=== PATIENT | female | born 1970 | race Caucasian/White ===

== ENCOUNTER 2022-01-10 07:40 | Outpatient (REF) | payer OTHER, SELFPAY ==
[2022-01-10 08:06] LABS: MANUAL DIFF FLAG NO
[2022-01-10 08:36] LABS: Basophils Absolute Auto 0.1 X10*3/uL (0.0-0.2); Basophils Percent Auto 0.8 % (0-2); Eosinophils Absolute Auto 0.4 X10*3/uL (0.0-0.4); Eosinophils Percent Auto 4.9 % (0-4); Hematocrit 38.8 % (37.0-47.0); Hemoglobin 12.7 g/dl (12.0-16.0); Imm Gran Abs Auto 0.02 X10*3/uL (0.00-0.03); Imm Gran Pct Auto 0.2 % (0.0-0.4); Lymphocytes Absolute Auto 2.7 X10*3/uL (1.2-4.9); Lymphocytes Percent Auto 31.9 % (20-40); Mean Corpuscular HGB Conc 32.7 g/dl (31.0-35.0); Mean Corpuscular Hemoglobin 29.6 pg (27.0-33.0); Mean Corpuscular Volume 90.4 fL (80.0-98.0); Mean Platelet Volume 10.3 fL (9.4-12.3); Monocytes Absolute Auto 0.5 X10*3/uL (0.1-1.2); Monocytes Percent Auto 6.4 % (2-11); Neutrophils Absolute Auto 4.7 x10*3/uL (2.0-8.3); Neutrophils Percent Auto 55.8 % (45-73); Platelet Count 389 X10*3/uL (160-400); Red Blood Count 4.29 X10*6/uL (4.20-5.50); Red Cell Distribution Width 14.7 % (11.0-16.0); White Blood Count 8.5 X10*3/uL (4.8-10.8)
[2022-01-10 08:44] LABS: Estimated Average Glucose 105 mg/dL; Hemoglobin A1c % 5.3 %
[2022-01-10 09:11] LABS: Alanine Aminotransferase 17 U/L (0-31); Albumin Level 4.2 g/dL (3.5-5.0); Alkaline Phosphatase 98 U/L (39-117); Anion Gap 12 (12-20); Aspartate Amino Transferase 18 U/L (5-31); Bilirubin Total 0.6 mg/dL (0.0-1.0); Blood Urea Nitrogen 21 mg/dL (9-16); Calcium 9.7 mg/dL (8.4-10.2); Carbon Dioxide 25 mmol/L (22-29); Chloride 108 mmol/L (96-108); Cholesterol 216 mg/dL; Estimated Glomerular Filt Rate > 60; Glucose Fasting 105 mg/dL (60-99); HDL Cholesterol 56 mg/dL; LDL Cholesterol Calculated 141 mg/dl; Potassium 4.6 mmol/L (3.3-5.1); Sodium 140 mmol/L (135-145); Total Protein 7.2 g/dL (6.5-8.0); Triglycerides 95 mg/dL
[2022-01-10 09:14] LABS: Hepatitis B Surface Antigen Negative (Negative); ~Hepatitis C Antibody Nonreactive (Nonreactive)
[2022-01-10 09:15] LABS: HBS Num1 0.21 mIU/mL (0-7.99); HBc Num1 0.09 S/CO (0.00-0.79); HIV AB/AG Nonreactive (Nonreactive); HIV Num 1 0.09 S/CO (0.00-0.99); Hepatitis B Core Antibody Nonreactive (Nonreactive); ~Hepatitis B Surface Antibody NONREACTIVE (Nonreactive)
[2022-01-10 09:18] LABS: HBsAGNum1 0.18 S/CO (0.00-0.99); ~HepC Num1 0.33 S/CO (0.00-0.79)
[2022-01-10 09:23] LABS: TSH reflex Free T4 0.99 uIU/mL (0.32-4.0)
[2022-01-10 09:32] LABS: Gamma Glutamyl Transpeptidase 24 U/L (7-33)
[2022-01-10 09:34] LABS: Folate 14.3 ng/mL (> or = 4.0); Vitamin B12 747 pg/mL (200-900)
[2022-01-12 03:52] LABS: Hepatitis A Antibody IgM 0.17 Index (0-0.79); ~Hepatitis A Antibody IgM Nonreactive (Nonreactive)
[2022-01-14 13:21] LABS: Vitamin D 25-OH, D2 <4 ng/mL; Vitamin D 25-OH, D3 28 ng/mL; Vitamin D 25-OH, Total 28 ng/mL (30-100)
== END 2022-01-10 07:41 | disposition home or self-care (01) ==
LOC: HO.LAB 07:40
PROVIDERS: PCP Internal Medicine; Visit Provider Nurse Practitioner Acute Care
DX: Z11.4 Encounter for screening for human immunodeficiency virus [HIV] (principal); E78.00 Pure hypercholesterolemia, unspecified
CPT/HCPCS: 36415; 80053; 80061; 82306; 82607; 82746; 82977; 83036; 84443; 85025; 86704; 86706; 86709; 86803; 87340; 87389

== ENCOUNTER 2022-01-10 08:15 | Emergency (ER) | payer OTHER, SELFPAY ==
--- NOTE | ~2022-01-10 | XR_ITS ---
EXAMINATION: XR CHEST CLINICAL INFORMATION: Chest pain COMPARISON: Previous chest x-ray November 2017 TECHNIQUE: Frontal view of the chest was obtained. FINDINGS: The cardiac and mediastinal contours are normal. The lungs are clear. There is no pleural effusion or pneumothorax. There are degenerative changes of the spine. XR/XR chest 1V IMPRESSION: No evidence for acute disease in the chest.
[2022-01-10 09:10] VITALS: BP 158/72; PULSE 75; RESP 16; TEMP 36.1; O2SAT 96
--- NOTE | 2022-01-10 09:17 | ECG_ITS ---
Test Reason : CP Blood Pressure : / mmHG Vent. Rate : 073 BPM Atrial Rate : 073 BPM P-R Int : 174 ms QRS Dur : 074 ms QT Int : 366 ms P-R-T Axes : 041 033 019 degrees QTc Int : 403 ms Normal sinus rhythm Normal ECG When compared to the previous EKG of No significant changes seen Referred By: Generic ED Physician Electronically Signed By:VICENTA DEWEY MD
[2022-01-10 09:40] LABS: MANUAL DIFF FLAG NO
[2022-01-10 09:42] LABS: Basophils Absolute Auto 0.1 X10*3/uL (0.0-0.2); Basophils Percent Auto 0.8 % (0-2); Eosinophils Absolute Auto 0.3 X10*3/uL (0.0-0.4); Eosinophils Percent Auto 3.9 % (0-4); Hematocrit 38.3 % (37.0-47.0); Hemoglobin 12.5 g/dl (12.0-16.0); Imm Gran Abs Auto 0.02 X10*3/uL (0.00-0.03); Imm Gran Pct Auto 0.3 % (0.0-0.4); Lymphocytes Absolute Auto 2.4 X10*3/uL (1.2-4.9); Lymphocytes Percent Auto 30.6 % (20-40); Mean Corpuscular HGB Conc 32.6 g/dl (31.0-35.0); Mean Corpuscular Hemoglobin 29.4 pg (27.0-33.0); Mean Corpuscular Volume 90.1 fL (80.0-98.0); Mean Platelet Volume 9.8 fL (9.4-12.3); Monocytes Absolute Auto 0.5 X10*3/uL (0.1-1.2); Monocytes Percent Auto 6.8 % (2-11); Neutrophils Absolute Auto 4.4 x10*3/uL (2.0-8.3); Neutrophils Percent Auto 57.6 % (45-73); Platelet Count 365 X10*3/uL (160-400); Red Blood Count 4.25 X10*6/uL (4.20-5.50); Red Cell Distribution Width 14.6 % (11.0-16.0); White Blood Count 7.7 X10*3/uL (4.8-10.8)
[2022-01-10 09:58] LABS: Anion Gap 11 (12-20); Blood Urea Nitrogen 19 mg/dL (9-16); Calcium 9.7 mg/dL (8.4-10.2); Carbon Dioxide 26 mmol/L (22-29); Chloride 108 mmol/L (96-108); Creatinine Clr Calc Pharmacy 127.1; Estimated Glomerular Filt Rate > 60; Glucose Random 102 mg/dL (60-115); Potassium 4.9 mmol/L (3.3-5.1); Sodium 140 mmol/L (135-145)
[2022-01-10 10:02] LABS: Troponin-I High Sensitivity < 3.5 ng/L (<3.5-17.0)
[2022-01-10] MEDS: Acetaminophen 325 MG TABLET 650 MG PO (10:29)
--- NOTE | 2022-01-10 12:23 | ED.GENADULT ---
HPI - General Adult General Chief complaint: General Medical Stated complaint: BACK R HIP AND LEG PAIN Time Seen by Provider: 01/10/22 11:27 Source: patient Mode of arrival: ambulatory Limitations: no limitations History of Present Illness HPI narrative: Patient comes to the emergency room complaining of bilateral hip pain, right knee pain. Patient states the cold weather today exacerbated the pain. Patient also complaining of intermittent headache, intermittent chest pain, no headache or chest pain at this time. Patient states that she is concerned that her blood pressure has been approximately 160 and above at home. Here is 158/72. Patient takes 2.5 mg of amlodipine. Related Data Home Medications Medication Instructions Recorded Confirmed albuterol sulfate 2.5 mg INHALATION Q4-6H PRN 01/07/22 01/07/22 divalproex 250 mg tablet,delayed 250 mg PO BID 01/07/22 01/07/22 release (Depakote) zolpidem 10 mg tablet (Ambien) 10 mg PO BEDTIME PRN 01/07/22 01/07/22 Previous Rx's Medication Instructions Recorded albuterol sulfate 90 mcg/actuation 1 inh INHALATION Q4H PRN #8.5 g 01/07/22 aerosol inhaler amlodipine 2.5 mg tablet 2.5 mg PO DAILY #30 tab 01/07/22 atorvastatin 40 mg tablet 40 mg PO DAILY #30 tab 01/07/22 cholecalciferol (vitamin D3) 125 125 mcg PO DAILY #30 cap 01/07/22 mcg (5,000 unit) capsule cyclobenzaprine 5 mg tablet 5 mg PO TID PRN #21 tab 01/07/22 duloxetine 30 mg capsule,delayed 30 mg PO DAILY #30 cap 01/07/22 release fluticasone propionate 110 1 puff INHALATION BID #12 g 01/07/22 mcg/actuation HFA aerosol inhaler (Flovent HFA) gabapentin 300 mg capsule 300 mg PO BEDTIME #30 cap 01/07/22 hydroxyzine pamoate 50 mg capsule 50 mg PO BID #60 cap 01/07/22 ibuprofen 800 mg tablet 800 mg PO Q6H PRN #30 tab 01/07/22 miscellaneous medical supply #1 ea 01/07/22 (Blood Pressure Cuff) montelukast 10 mg tablet 10 mg PO DAILY #30 tab 01/07/22 omeprazole 20 mg capsule,delayed 20 mg PO DAILY #30 cap 01/07/22 release quetiapine 50 mg tablet (Seroquel) 50 mg PO DAILY #30 tab 01/07/22 trazodone 50 mg tablet 50 mg PO BEDTIME PRN #14 tab 01/07/22 amlodipine 5 mg tablet 5 mg PO DAILY #20 tab 01/10/22 gabapentin 600 mg tablet 600 mg PO BEDTIME 30 Days #30 tab 01/10/22 tramadol 50 mg tablet 50 mg PO DAILY PRN #7 tab 01/10/22 Allergies Allergy/AdvReac Type Severity Reaction Status Date / Time No Known Allergies Allergy Verified 01/07/22 13:01 [No Known Allergies*] Review of Systems Review of Systems: Constitutional : No Weight loss, No Fever, No Chills, No Night Sweats, No Fatigue, No Malaise ENT/Mouth : No Hearing loss, No Ear Pain, No Nasal Congestion, No Sinus Pain, No Hoarseness, No sore throat, No Rhinorrhea, No Swallowing Difficulty Eyes: No Eye Pain, No Swelling, No Redness, No Foreign Body, No Discharge, No Vision Changes Cardiovascular : Complaining of intermittent Chest Pain, No SOB, No Dyspnea on Exertion, No Orthopnea, No Edema, No Palpitations Respiratory : No Cough, No Sputum, No Wheezing, No Smoke Exposure, No Dyspnea Gastrointestinal : No Nausea, No Vomiting, No Diarrhea, No Constipation, No abdominal Pain, No Hematochezia, No Melena Genitourinary : no irregular bleeding, No Dysuria, No Urinary Frequency, No Hematuria, No Urinary Incontinence, No Urgency, No Flank Pain, No Urinary Flow Changes, No Hesitancy Musculoskeletal : Complaining of bilateral hip pain and right knee pain No Myalgias, No Joint Swelling Skin : No Skin Lesions, No rash Neuro : No Weakness, No Numbness, No Paresthesias, No Loss of Consciousness, No Dizziness, complaining of intermittent Headache Psych : No Anxiety/Panic, No Depression, No SI/HI/AH/VH, No Social Issues, Heme/Lymph: No Bruising, No Bleeding,No Lymphadenopathy Endocrine : No Polyuria, No Polydipsia, No Temperature Intolerance PMFSH Past Medical History Medical History Allergic rhinitis Asthma Bipolar 1 disorder Fibromyalgia Generalized anxiety disorder GERD (gastroesophageal reflux disease) Hypercholesteremia Hypertension Surgical History History of appendectomy History of back surgery History of tubal ligation Family History Family History Other Mental health disorder Social History Social History Housing: Apartment Alcohol intake: never Patient Tobacco Use Status: Current everyday Tobacco user Tobacco use type: Cigarette Cigarette Packs Per Day: 0.5 Cigarettes Per Day: 10 e-Cigarette/Vaping Use: Never Used Second Hand Smoke Exposure: Yes Advance Directives: No Advance Directives Information Provided: Yes Patient : No service: No Current occupational status: disabled Cognitive needs: No Hearing needs: No Vision needs: Yes (Glasses) Physical Exam ED Vital Signs: Vital Signs - 24 hr 01/10/22 09:10 Temperature 97.0 F Pulse Rate 75 Respiratory Rate 16 Blood Pressure 158/72 H Pulse Oximetry 96 BMI result Body Mass Index 0.3 Const Other: Appearance: Alert. Oriented X3. No acute distress. Eyes: Pupils equal, round and reactive to light. ENT: Pharynx normal. Neck: Normal inspection. Neck supple. No lymph nodes noted. No crepitus CVS: Normal heart rate and rhythm. Pulses normal. Normal S1 and S2 Respiratory: No respiratory distress. Breath sounds normal. No Wheezing. No rales Abdomen: Soft and nontender. No rigidity. No distention. Back: No CVA tenderness, pain to palpation over bilateral hips posteriorly, no lumbar spine tenderness. Skin: Skin warm and dry. Normal skin color. Normal skin turgor. Extremities: No lower extremity edema. Patient is able to flex and extend the hip bilaterally, same with the right knee. No erythema, no additional warmth, septic joints are not suspected Neuro: Oriented X 3. No motor deficit. No sensory deficit. Moving all extermities. No slurred speech. Cranial nerves 2-12 grossly intact Course Course Course Narrative: I discussed the lab imaging and EKG with the patient, no acute findings. Patient does have history of fibromyalgia. Patient states that she takes 300 mg of gabapentin at night and is not helping. I also discussed with the patient we will increase her amlodipine to 5 mg for better blood pressure control. Patient has a an appointment with her new PCP in the next couple of weeks. At this time, septic joints are not suspected Medical Decision Making Lab Data Result diagrams: 01/10/22 09:36 01/10/22 09:36 Labs: Lab Results 01/10/22 01/10/22 01/10/22 Range/Units 09:36 09:36 09:36 WBC 7.7 (4.8-10.8) X10*3/uL RBC 4.25 (4.20-5.50) X10*6/uL Hgb 12.5 (12.0-16.0) g/dl Hct 38.3 (37.0-47.0) % MCV 90.1 (80.0-98.0) fL MCH 29.4 (27.0-33.0) pg MCHC 32.6 (31.0-35.0) g/dl RDW 14.6 (11.0-16.0) % Plt Count 365 (160-400) X10*3/uL MPV 9.8 (9.4-12.3) fL Immature Gran % (Auto) 0.3 (0.0-0.4) % Neut % (Auto) 57.6 (45-73) % Lymph % (Auto) 30.6 (20-40) % Bullitt % (Auto) 6.8 (2-11) % Eos % (Auto) 3.9 (0-4) % Baso % (Auto) 0.8 (0-2) % Lymph # (Auto) 2.4 (1.2-4.9) X10*3/uL Bullitt # (Auto) 0.5 (0.1-1.2) X10*3/uL Eos # (Auto) 0.3 (0.0-0.4) X10*3/uL Baso # (Auto) 0.1 (0.0-0.2) X10*3/uL Abs Immat Gran (auto) 0.02 (0.00-0.03) X10*3/uL Absolute Neuts (auto) 4.4 (2.0-8.3) x10*3/uL Absolute Nucleated RBC 0.000 (0.0-0.012) X10*3/uL Nucleated RBC % (auto) 0.0 (0.0-0.2) /100WBC Sodium 140 (135-145) mmol/L Potassium 4.9 (3.3-5.1) mmol/L Chloride 108 (96-108) mmol/L Carbon Dioxide 26 (22-29) mmol/L Anion Gap 11 L (12-20) BUN 19 H (9-16) mg/dL Creatinine 0.72 (0.5-1.4) mg/dL Estim Creat Clear Calc 127.1 Estimated GFR > 60 Random Glucose 102 (60-115) mg/dL Calcium 9.7 (8.4-10.2) mg/dL Troponin I High Sens < 3.5 (<3.5-17.0) ng/L Discharge Plan Discharge Clinical Impression: Fibromyalgia, Hypertension Patient Disposition: Home, Self-Care Instructions: Hypertension (ED), Arthralgia (ED) Additional Instructions: Please follow-up with your primary care physician tomorrow. If you have any worsening or new symptoms, please return to the emergency room or call 911 Prescriptions: New gabapentin 600 mg tablet 600 mg PO BEDTIME 30 Days Qty: 30 0RF Rx Instructions: Take gabapentin 600 mg at bedtime. Continue taking gabapentin 300 mg in the morning amlodipine 5 mg tablet 5 mg PO DAILY Qty: 20 0RF tramadol 50 mg tablet 50 mg PO DAILY PRN (Reason: pain) Qty: 7 0RF No Action divalproex [Depakote] 250 mg tablet,delayed release (DR/EC) 250 mg PO BID 0RF zolpidem [Ambien] 10 mg tablet 10 mg PO BEDTIME PRN0RF albuterol sulfate 2.5 mg /3 mL (0.083 %) solution for nebulization 2.5 mg inhalation Q4-6H PRN0RF amlodipine 2.5 mg tablet 2.5 mg PO DAILY Qty: 30 0RF atorvastatin 40 mg tablet 40 mg PO DAILY Qty: 30 0RF cholecalciferol (vitamin D3) 125 mcg (5,000 unit) capsule 125 mcg PO DAILY Qty: 30 1RF duloxetine 30 mg capsule,delayed release(DR/EC) 30 mg PO DAILY Qty: 30 0RF quetiapine [Seroquel] 50 mg tablet 50 mg PO DAILY Qty: 30 0RF hydroxyzine pamoate 50 mg capsule 50 mg PO BID Qty: 60 1RF montelukast 10 mg tablet 10 mg PO DAILY Qty: 30 1RF gabapentin 300 mg capsule 300 mg PO BEDTIME Qty: 30 1RF omeprazole 20 mg capsule,delayed release(DR/EC) 20 mg PO DAILY Qty: 30 1RF albuterol sulfate 90 mcg/actuation HFA aerosol inhaler 1 inh inhalation Q4H PRN (Reason: bronchospasm) Qty: 8.5 0RF Flovent HFA 110 mcg/actuation HFA aerosol inhaler 1 puff inhalation BID Qty: 12 0RF trazodone 50 mg tablet 50 mg PO BEDTIME PRN (Reason: sleep) Qty: 14 0RF ibuprofen 800 mg tablet 800 mg PO Q6H PRN (Reason: pain) Qty: 30 0RF cyclobenzaprine 5 mg tablet 5 mg PO TID PRN (Reason: muscle spasm) Qty: 21 0RF (DME) Blood Pressure Cuff Misc See Rx Instructions .Route Qty: 1 0RF Rx Instructions: As directed, electronic bp cuff, take bp twice a day
== END 2022-01-10 12:44 | disposition home or self-care (01) ==
PROVIDERS: Emergency Provider Emergency Medicine; PCP Internal Medicine
DX: M79.7 Fibromyalgia (principal); I10 Essential (primary) hypertension
CPT/HCPCS: 36415; 71045; 80048; 84484; 85025; 93005; 99283; 99284

== ENCOUNTER 2022-01-24 10:30 | Outpatient (REF) | payer OTHER, SELFPAY ==
[2022-01-24 18:01] LABS: Amphetamine Screen Urine Not Detected (Not Detect); Barbiturates, Urine Not Detected (Not Detect); Benzodiazepines Screen Urine Not Detected (Not Detect); Cannabinoid Screen Urine Not Detected (Not Detect); Cocaine Screen Urine Not Detected (Not Detect); Fentanyl, urine Not Detected (Not Detect); Opiate Screen Urine Not Detected (Not Detect); Phencyclidine Screen Urine Not Detected (Not Detect)
[2022-01-30 07:34] LABS: Codeine, Ur NEGATIVE; Hydrocodone, Ur NEGATIVE
[2022-01-30 07:35] LABS: Morphine, Ur NEGATIVE; Oxycodone, Ur NEGATIVE
[2022-01-30 07:36] LABS: Hydromorphone, Ur NEGATIVE; Norhydrocodone, Ur NEGATIVE; Noroxycodone, Ur NEGATIVE; Oxymorphone, Ur NEGATIVE
[2022-01-30 07:37] LABS: Nordiazepam, GCMS Urine NEGATIVE
[2022-01-30 07:41] LABS: Oxazepam, GCMS Urine NEGATIVE
[2022-01-30 07:42] LABS: Alphahydroxytriazolam, GCMS Ur NEGATIVE; Alprazolam, GCMS Urine NEGATIVE; Lorazepam GCMS Urine NEGATIVE
[2022-01-30 07:43] LABS: Alphahydroxymidazolam,GCMS Ur NEGATIVE; Aminoclonazepam, GCMS Urine NEGATIVE; Flurazepam Metabolite,GCMS Ur NEGATIVE; Temazepam, GCMS Urine NEGATIVE
== END 2022-01-24 10:31 | disposition home or self-care (01) ==
LOC: HO.LAB 10:30
PROVIDERS: Visit Provider Nurse Practitioner Acute Care
DX: F11.90 Opioid use, unspecified, uncomplicated (principal)
CPT/HCPCS: 80307; 80346; 80364; 80365

== ENCOUNTER 2022-02-04 12:10 | Outpatient (REF) | payer OTHER, SELFPAY ==
--- NOTE | ~2022-02-04 | MM_ITS ---
EXAMINATION: MM SCREENING DIGITAL BREAST TOMOSYNTHESIS, BILATERAL CLINICAL INFORMATION: Screening. Asymptomatic. The lifetime risk of breast cancer based on the Tyrer-Cuzick Model is 7%. COMPARISON: Mammography: 12/14/2017, 12/08/2017, 08/10/2016 TECHNIQUE: Digital breast tomosynthesis is performed in both the craniocaudal and mediolateral oblique views along with computer-aided detection (CAD). Synthesized 2D images are generated from the tomosynthesis. Additional left view is provided. FINDINGS: The breasts are almost entirely fatty (ACR BI-RADS breast composition Category a). Background stromal and fibroglandular densities are unremarkable. There is no developing density or architectural abnormality. There are no significant masses, abnormal calcifications, or other abnormalities. The axilla and skin contours are unremarkable. MM/MM tomosynthesis screening BI IMPRESSION: No mammographic evidence of malignancy. ASSESSMENT: BI-RADS 1: Negative RECOMMENDATION: Routine annual mammography screening. This patient's information was entered into a reminder system with a target due date for their next mammogram.
== END 2022-02-04 12:11 | disposition home or self-care (01) ==
LOC: HO.MAMMO 12:10
PROVIDERS: Visit Provider Internal Medicine
DX: Z12.31 Encounter for screening mammogram for malignant neoplasm of breast (principal)
CPT/HCPCS: 77063; 77067

== ENCOUNTER → 2022-02-11 09:30 | Outpatient (REF) | payer OTHER, SELFPAY ==
--- NOTE | 2022-02-11 09:33 | CA_ITS ---
Acquisition Time: 2022-02-11 09:50:58 Total Exercise Time: 00:04:38 Test Indications: cp Medications: see chart Protocol: ROCAEL Max HR: 166 BPM 98% of Pred: 169 BPM Max BP: 190/058 mmHG Max Work Load: 6.5 METS Exercise stress test with exercise 4 min 38 sec of Rocael protocol, with report of 8/10 pain in mid chest, mild sob, with isolated PACs, with normotensive response to exercise, with EKG changes meeting criteria for ischemia inferiorly, which improves quickly in recovery. Then with borderline ST changes V4-V6 starting at 2 min recovery. EKGs normal with only slight downslope of ST in lead III by 9 min recovery. Her chest discomfort gradually improved in recovery and was at 1/10 by 12 min recovery. She states it can stay at that level for prolonged period of time. Test reviewed with Dr Weston. Message sent to ordering provider with above report and recommendation for pharmacological nuclear stress test. Referred By: Farrah Arenas Overread By: ESTHELA MALLORY
== END ==
LOC: HO.CARD 09:30
PROVIDERS: Visit Provider Nurse Practitioner Acute Care
DX: R00.2 Palpitations (principal); R07.9 Chest pain, unspecified
CPT/HCPCS: 93017

== ENCOUNTER 2022-02-20 13:01 | Observation (INO) | payer OTHER, SELFPAY ==
--- NOTE | 2022-02-20 | ECG_ITS ---
Test Reason : repear ekg Blood Pressure : / mmHG Vent. Rate : 072 BPM Atrial Rate : 072 BPM P-R Int : 170 ms QRS Dur : 082 ms QT Int : 380 ms P-R-T Axes : 012 041 020 degrees QTc Int : 416 ms Normal sinus rhythm Normal ECG When compared with ECG of 20-FEB-2022 13:22, No significant change was found Referred By: Siomara Hitchcock Electronically Signed By:DAO LEIJA
--- NOTE | 2022-02-20 | ECG_ITS ---
Test Reason : CHEST PAIN Blood Pressure : / mmHG Vent. Rate : 071 BPM Atrial Rate : 071 BPM P-R Int : 164 ms QRS Dur : 078 ms QT Int : 378 ms P-R-T Axes : -02 014 014 degrees QTc Int : 410 ms Normal sinus rhythm Minimal voltage criteria for LVH, may be normal variant ( R in aVL ) Borderline ECG When compared with ECG of 10-JAN-2022 09:16, No significant change was found Referred By: Generic ED Physician Electronically Signed By:DAO LEIJA
--- NOTE | ~2022-02-20 | US_ITS ---
EXAMINATION: US ABDOMEN LIMITED CLINICAL INFORMATION: Right upper quadrant epigastric pain. COMPARISON: Previous CT of the abdomen and pelvis most recent from earlier the same day TECHNIQUE: Real-time imaging of the right upper quadrant abdominal viscera. Exam is limited due to patient body habitus. FINDINGS: PANCREAS: Not visualized due to bowel gas LIVER: Normal. The liver is normal in size. The liver contour is normal. Parenchymal echogenicity is normal. No focal hepatic lesion. There is no intrahepatic biliary duct dilatation seen. GALLBLADDER: Normal. The gallbladder is physiologically distended without evidence of stones, sludge, polyps, wall thickening or pericholecystic fluid. COMMON BILE DUCT: Normal in caliber measuring 0.3 cm in diameter. RIGHT KIDNEY: Normal. No hydronephrosis. No renal calculi or focal parenchymal lesions. The kidney measures 9 cm in maximum dimension. FREE FLUID: None. US/US abdomen limited IMPRESSION: Limited exam due to patient body habitus. The pancreas is not visualized.
--- NOTE | ~2022-02-20 | XR_ITS ---
EXAMINATION: XR ABDOMEN KUB CLINICAL INDICATION: Abdominal pain COMPARISON: Previous CT of the abdomen from yesterday and CT of the abdomen and pelvis November 2017 TECHNIQUE: AP view of the abdomen. FINDINGS: The bowel gas pattern is normal with no evidence of ileus or obstruction. No unusual soft tissue calcifications are noted. There are small right pelvic calcification stable previous CT November 2017 probably representing calcified phleboliths. The bones are unremarkable. XR/XR KUB IMPRESSION: Unremarkable examination.
--- NOTE | ~2022-02-20 | CT_ITS ---
EXAMINATION: CT ABDOMEN WITH CONTRAST CLINICAL INFORMATION: Right upper quadrant pain COMPARISON: Previous noncontrast CT of the abdomen and pelvis most recent November 2017 and contrast-enhanced CT July 2016 TECHNIQUE: Contiguous axial thin section helical images of the abdomen were performed following the administration of oral contrast and 85 mL of Omnipaque 350 intravenous contrast. The data set was reformatted in the coronal and sagittal planes and reviewed on an independent workstation. This CT examination was performed using dose optimization techniques as appropriate, variously including the following: *Automated exposure control *Adjustment of mA and/or kV according to patient size (this includes techniques or standardized protocols for targeted exams where dose is matched to indication/reason for exam; i.e. extremities or head) *Use of iterative reconstruction technique DLP: 520 mGy-cm FINDINGS: LUNG BASES: Normal LIVER, GALLBLADDER, AND BILIARY TREE: The liver is normal in size, shape and attenuation. There is a 1 cm low-attenuation lesion high in the junction of the medial segment of the left lobe and anterior segment of the right lobe of the liver in the liver axial image 18 series 3. Hounsfield units following contrast measure 16 and not compatible with a simple cyst. This is stable from previous contrast enhanced CT July 2016 and therefore probably benign. No other focal liver lesion is seen. The gallbladder is normal. There is no biliary duct dilatation. PANCREAS: Normal SPLEEN: Normal ADRENAL GLANDS AND KIDNEYS: The adrenal glands are normal. There is a 1.5 cm stable cyst in the right kidney. The kidneys are otherwise normal. BOWEL LOOPS: Normal LYMPH NODES: Normal. VASCULAR: Unremarkable. BONES: Unremarkable CT/CT abdomen w con IMPRESSION: No acute findings. Stable small liver lesion from [address] and therefore probably benign. Small right renal cyst. Fleischner guidelines were followed.
--- NOTE | ~2022-02-20 | XR_ITS ---
EXAMINATION: XR CHEST CLINICAL INFORMATION: Chest pain COMPARISON: 01/10/2022 TECHNIQUE: 2 views of the chest were obtained. FINDINGS: Cardiac silhouette is within normal limits. Mild peribronchial thickening of the upper lobes. No focal consolidation, pleural effusion, or pneumothorax. No acute osseous abnormality. XR/XR chest 2V IMPRESSION: No acute cardiopulmonary process. Mild peribronchial thickening of the upper lobes, slightly more prominent than on prior exam.
[2022-02-20 13:07] VITALS: BP 137/56; PULSE 80; RESP 18; TEMP 36.6; O2SAT 98; BMI 34.0
[2022-02-20 14:00] VITALS: BP 124/64; PULSE 75; RESP 14; TEMP 36.6; O2SAT 100
[2022-02-20 14:44] LABS: MANUAL DIFF FLAG NO
[2022-02-20 14:46] LABS: Basophils Absolute Auto 0.1 X10*3/uL (0.0-0.2); Basophils Percent Auto 0.6 % (0-2); Eosinophils Absolute Auto 0.2 X10*3/uL (0.0-0.4); Eosinophils Percent Auto 2.6 % (0-4); Hematocrit 39.6 % (37.0-47.0); Hemoglobin 12.7 g/dl (12.0-16.0); Imm Gran Abs Auto 0.04 X10*3/uL (0.00-0.03); Imm Gran Pct Auto 0.4 % (0.0-0.4); Lymphocytes Percent Auto 32.5 % (20-40); Mean Corpuscular HGB Conc 32.1 g/dl (31.0-35.0); Mean Corpuscular Hemoglobin 29.4 pg (27.0-33.0); Mean Corpuscular Volume 91.7 fL (80.0-98.0); Mean Platelet Volume 9.9 fL (9.4-12.3); Monocytes Absolute Auto 0.4 X10*3/uL (0.1-1.2); Monocytes Percent Auto 4.7 % (2-11); Neutrophils Absolute Auto 5.5 x10*3/uL (2.0-8.3); Neutrophils Percent Auto 59.2 % (45-73); Platelet Count 351 X10*3/uL (160-400); Red Blood Count 4.32 X10*6/uL (4.20-5.50); Red Cell Distribution Width 14.5 % (11.0-16.0); White Blood Count 9.3 X10*3/uL (4.8-10.8)
[2022-02-20 15:00] LABS: Anion Gap 11 (12-20); Blood Urea Nitrogen 18 mg/dL (9-16); Calcium 9.7 mg/dL (8.4-10.2); Carbon Dioxide 28 mmol/L (22-29); Chloride 108 mmol/L (96-108); Creatinine Clr Calc Pharmacy 90.3; Estimated Glomerular Filt Rate > 60; Glucose Random 113 mg/dL (60-115); Potassium 4.2 mmol/L (3.3-5.1); Sodium 143 mmol/L (135-145)
--- NOTE | 2022-02-20 15:00 | ED.GENADULT ---
HPI - General Adult General Chief complaint: General Medical Stated complaint: chest pain/ side abd pain/ diff. breathing Time Seen by Provider: 02/20/22 14:39 Source: patient Mode of arrival: ambulatory Limitations: no limitations History of Present Illness HPI narrative: 51 yo female here with PMH significant for hypertension, hypercholesteremia, fibromyalgia, asthma, environmental allergies, Bipolar 1 disorder, depression, anxiety and persistent insomia with complaints of L upper CP which she has had intermittent for months. Had stress test 02/11 in which patient had chest pain, EKG changes (inferiorly during activity, laterally V4-V6). Plans to obtain nuclear stress and patient see cards outpatient. Patient tells me she has scheduled appointment with Cardiology in February. She is waiting to hear when her nuclear stress test will be. She tells me the pain is intermittent, worsened with movement and deep breathing. No associated cough, diaphoreisis, nausea, vomiting, dizziness, leg swelling or pain. Patient does report intermittent epigastric pain with no nausea/vomiting/diarrhea/urinary symptoms. Related Data Home Medications Medication Instructions Recorded Confirmed hydroxyzine pamoate 50 mg capsule 50 mg PO BID 02/20/22 02/20/22 montelukast 10 mg tablet 10 mg PO BEDTIME 02/20/22 02/20/22 tramadol 50 mg tablet 50 mg PO DAILY PRN 02/20/22 02/20/22 Previous Rx's Medication Instructions Recorded albuterol sulfate 90 mcg/actuation 1 inh INHALATION Q4H PRN #8.5 g 01/07/22 aerosol inhaler pantoprazole 20 mg tablet,delayed 20 mg PO DAILY #60 tab 01/13/22 release albuterol sulfate 2.5 mg (3 mL) INHALATION Q4-6H PRN 01/24/22 #15 ml amlodipine 5 mg tablet 5 mg PO DAILY #20 tab 01/24/22 cholecalciferol (vitamin D3) 125 125 mcg PO DAILY #30 cap 01/24/22 mcg (5,000 unit) capsule divalproex 250 mg tablet,delayed 250 mg PO BID #30 tab 01/24/22 release (Depakote) fluticasone propionate 110 1 puff INHALATION BID #12 g 01/24/22 mcg/actuation HFA aerosol inhaler (Flovent HFA) gabapentin 300 mg capsule 300 mg PO DAILY #30 cap 01/24/22 gabapentin 600 mg tablet 600 mg PO BEDTIME 30 Days #30 tab 01/24/22 miscellaneous medical supply #1 ea 01/24/22 (Blood Pressure Cuff) nebulizers #1 ea 01/24/22 nebulizers (Altera Nebulizer #1 ea 01/24/22 System) quetiapine 50 mg tablet (Seroquel) 50 mg PO DAILY #30 tab 01/24/22 zolpidem 10 mg tablet (Ambien) 10 mg PO BEDTIME PRN #30 tab 01/24/22 yyzpctlqnq-dsucobyoagwam-jeykomcj 1 cap PO Q4-6H PRN #14 cap 02/11/22 50 mg-325 mg-40 mg capsule polyethylene glycol 3350 17 gram 17 g PO DAILY #100 ea 02/11/22 oral powder packet (Miralax) sennosides 8.6 mg tablet (Senokot) 8.6 mg PO BID PRN #30 tab 02/11/22 atorvastatin 40 mg tablet 40 mg PO DAILY #30 tab 02/13/22 duloxetine 30 mg capsule,delayed 30 mg PO DAILY #30 cap 02/13/22 release Allergies Allergy/AdvReac Type Severity Reaction Status Date / Time No Known Allergies Allergy Verified 02/11/22 09:03 [No Known Allergies*] Review of Systems Review of Systems: Yes all other systems are reviewed and are negative Constitutional: Constitutional: Reports no additional constitutional complaints, Denies body ache(s), Denies chills, Denies fever(s), Denies headache(s) and Denies weakness Eyes: Eyes: Reports no additional eye complaints and Denies change in vision ENT: Reports system reviewed and no additional complaints, except as documented, Denies dizziness, Denies headache(s), Denies nasal congestion, Denies nasal discharge and Denies neck pain Cardiovascular: Cardiovascular: Reports no additional cardiovascular complaints, Reports chest pain, Denies leg edema and Denies dyspnea Respiratory: Respiratory: Reports no additional respiratory complaints, Denies cough and Denies dyspnea Gastrointestinal: Gastrointestinal: Reports no additional gastrointestinal complaints, Reports abdominal pain, Denies diarrhea, Denies nausea and Denies vomiting Genitourinary: Genitourinary: Reports no additional female genitourinary complaints and Denies urinary incontinence Musculoskeletal: Musculoskeletal: Reports no additional musculoskeletal complaints, Denies back pain, Denies arthralgias, Denies joint swelling, Denies neck pain, Denies numbness and Denies tingling Integumentary/Breasts: Skin/Breast: Reports system reviewed and no additional complaints, except as docu and Denies rash Neurologic: Reports system reviewed and no additional complaints, except as documented, Denies dizziness, Denies headache(s), Denies numbness, Denies tingling and Denies weakness PMFSH Past Medical History Attestation statement: The following information was validated with the patient. Source: old records reviewed and nursing notes reviewed Medical History Allergic rhinitis Asthma Bipolar 1 disorder Fibromyalgia Generalized anxiety disorder GERD (gastroesophageal reflux disease) Hypercholesteremia Hypertension Surgical History History of appendectomy History of back surgery History of tubal ligation Family History Family History Mother Depression Hypertension Bone cancer Anxiety Mental health disorder Father Diabetes Social History Social History Housing: Apartment Alcohol intake: former Patient Tobacco Use Status: Current everyday Tobacco user Tobacco use type: Cigarette Cigarette Packs Per Day: 1 Cigarettes Per Day: 10 Smoked in Last 30 Days: Yes e-Cigarette/Vaping Use: Never Used Second Hand Smoke Exposure: Yes Use of substances other than those prescribed or required for medical reasons: No Advance Directives: No Advance Directives Information Provided: No service: No Current occupational status: disabled Cognitive needs: No Hearing needs: No Vision needs: Yes (Glasses) Physical Exam ED Vital Signs: Vital Signs - 24 hr 02/20/22 13:07 02/20/22 14:00 02/20/22 16:00 Temperature 97.9 F 97.8 F 97.8 F Pulse Rate 80 75 76 Respiratory Rate 18 14 18 Blood Pressure 137/56 L 124/64 109/68 Pulse Oximetry 98 100 99 BMI result Body Mass Index 34.0 Const General: cooperative, healthy appearing, comfortable and no acute distress Orientation/consciousness: patient oriented x3 Limitations: no limitations HENMT Head: Yes normal to inspection Ears: hearing grossly normal bilaterally and TM's normal bilaterally General nose exam: Normal external nose present Face and sinus: Yes normal facial exam Mouth: Normal oral and palatal mucosa present Teeth and gingiva: dentition normal Throat: Yes posterior oropharynx normal, Yes tonsils normal and Yes uvula midline Eyes General: appearance normal, both eyes and all related structures Pupils: Equal, round and reactive pupils present Neck Neck: Yes normal visual inspection, Yes full ROM, Yes no lymphadenopathy and Yes no meningeal signs Chest Chest palpation & inspection: normal inspection of the chest Resp Effort & Inspection: normal respiratory effort Auscultation: clear to auscultation bilaterally Cardio Rate: regular rate Rhythm: regular rhythm Peripheral pulses: Peripheral pulses 2+ throughout GI Inspection: Yes normal to inspection Palpation (GI): Soft to palpation and nontender General: Yes no CVA tenderness Back/Spine/Pelvis Back: no CVA tenderness Skin General skin exam: no rashes or lesions noted Neuro General: patient oriented x3 and no meningeal signs Cranial nerves: Yes CN's II-XII intact bilaterally, Yes Equal, round and reactive pupils present, Yes Bilaterally intact EOM present, Yes Nystagmus not present, Yes Normal facial strength present and Yes Midline tongue present Cognition (Neuro): normal cognition Gait exam (Neuro): Normal gait present Motor exam (neuro): 5/5 motor strength present throughout Sensory Exam: Normal double simultaneous stimulation for sensation Extrem General: Yes normal to inspection, Yes no pedal edema and Yes no calf tenderness Course Course Course Narrative: 51 yo female here with complaints of intermittent left sided CP for months worsened with activity with a +stress test 02/11 pending referral for nuclear stress and card referral. Will check labs, EKG, CXR, ASA/MS for pain, d/w with cards 1640-initial troponin negative. Patient had improvement in pain with aspirin and morphine. I discussed the case with Dr. Johnston from Cardiology. Plan for admission and to trend troponin, add BB Medical Decision Making Medical Records Medical records reviewed: Yes I reviewed the patient's medical records. Lab Data Lab results reviewed: Yes I reviewed the patient's lab results. Result diagrams: 02/20/22 14:40 02/20/22 14:40 Labs: Lab Results 02/20/22 02/20/22 02/20/22 Range/Units 14:40 14:40 14:40 WBC 9.3 (4.8-10.8) X10*3/uL RBC 4.32 (4.20-5.50) X10*6/uL Hgb 12.7 (12.0-16.0) g/dl Hct 39.6 (37.0-47.0) % MCV 91.7 (80.0-98.0) fL MCH 29.4 (27.0-33.0) pg MCHC 32.1 (31.0-35.0) g/dl RDW 14.5 (11.0-16.0) % Plt Count 351 (160-400) X10*3/uL MPV 9.9 (9.4-12.3) fL Immature Gran % (Auto) 0.4 (0.0-0.4) % Neut % (Auto) 59.2 (45-73) % Lymph % (Auto) 32.5 (20-40) % [place] % (Auto) 4.7 (2-11) % Eos % (Auto) 2.6 (0-4) % Baso % (Auto) 0.6 (0-2) % Lymph # (Auto) 3.0 (1.2-4.9) X10*3/uL [place] # (Auto) 0.4 (0.1-1.2) X10*3/uL Eos # (Auto) 0.2 (0.0-0.4) X10*3/uL Baso # (Auto) 0.1 (0.0-0.2) X10*3/uL Abs Immat Gran (auto) 0.04 H (0.00-0.03) X10*3/uL Absolute Neuts (auto) 5.5 (2.0-8.3) x10*3/uL Absolute Nucleated RBC 0.000 (0.0-0.012) X10*3/uL Nucleated RBC % (auto) 0.0 (0.0-0.2) /100WBC PT (9.9-13.0) SEC INR (0.9-1.1) D-Dimer High Sensitivty NG/ML Sodium 143 (135-145) mmol/L Potassium 4.2 (3.3-5.1) mmol/L Chloride 108 (96-108) mmol/L Carbon Dioxide 28 (22-29) mmol/L Anion Gap 11 L (12-20) BUN 18 H (9-16) mg/dL Creatinine 0.80 (0.5-1.4) mg/dL Estim Creat Clear Calc 90.3 Estimated GFR > 60 Random Glucose 113 (60-115) mg/dL Calcium 9.7 (8.4-10.2) mg/dL Total Bilirubin 0.6 (0.0-1.0) mg/dL Direct Bilirubin 0.2 (0.0-0.5) mg/dL AST 16 (5-31) U/L ALT 22 (0-31) U/L Alkaline Phosphatase 100 (39-117) U/L Troponin I High Sens < 3.5 (<3.5-17.0) ng/L Total Protein 7.0 (6.5-8.0) g/dL Albumin 4.1 (3.5-5.0) g/dL Lipase 23 (8-78) U/L COVID-19 (JUN) (Negative) COVID-19 Clin Com 02/20/22 02/20/22 02/20/22 Range/Units 15:57 15:57 15:57 WBC (4.8-10.8) X10*3/uL RBC (4.20-5.50) X10*6/uL Hgb (12.0-16.0) g/dl Hct (37.0-47.0) % MCV (80.0-98.0) fL MCH (27.0-33.0) pg MCHC (31.0-35.0) g/dl RDW (11.0-16.0) % Plt Count (160-400) X10*3/uL MPV (9.4-12.3) fL Immature Gran % (Auto) (0.0-0.4) % Neut % (Auto) (45-73) % Lymph % (Auto) (20-40) % [place] % (Auto) (2-11) % Eos % (Auto) (0-4) % Baso % (Auto) (0-2) % Lymph # (Auto) (1.2-4.9) X10*3/uL [place] # (Auto) (0.1-1.2) X10*3/uL Eos # (Auto) (0.0-0.4) X10*3/uL Baso # (Auto) (0.0-0.2) X10*3/uL Abs Immat Gran (auto) (0.00-0.03) X10*3/uL Absolute Neuts (auto) (2.0-8.3) x10*3/uL Absolute Nucleated RBC (0.0-0.012) X10*3/uL Nucleated RBC % (auto) (0.0-0.2) /100WBC PT 12.8 (9.9-13.0) SEC INR 1.1 (0.9-1.1) D-Dimer High Sensitivty < 150 NG/ML Sodium (135-145) mmol/L Potassium (3.3-5.1) mmol/L Chloride (96-108) mmol/L Carbon Dioxide (22-29) mmol/L Anion Gap (12-20) BUN (9-16) mg/dL Creatinine (0.5-1.4) mg/dL Estim Creat Clear Calc Estimated GFR Random Glucose (60-115) mg/dL Calcium (8.4-10.2) mg/dL Total Bilirubin (0.0-1.0) mg/dL Direct Bilirubin (0.0-0.5) mg/dL AST (5-31) U/L ALT (0-31) U/L Alkaline Phosphatase (39-117) U/L Troponin I High Sens (<3.5-17.0) ng/L Total Protein (6.5-8.0) g/dL Albumin (3.5-5.0) g/dL Lipase (8-78) U/L COVID-19 (JUN) Negative (Negative) COVID-19 Clin Com See Note Imaging Data Chest x-ray: Attestation: I personally reviewed and interpreted this imaging study as follows: Radiologist's impression: FINDINGS: Cardiac silhouette is within normal limits. Mild peribronchial thickening of the upper lobes. No focal consolidation, pleural effusion, or pneumothorax. No acute osseous abnormality. XR/XR chest 2V IMPRESSION: No acute cardiopulmonary process. ? Mild peribronchial thickening of the upper lobes, slightly more prominent than on prior exam. ECG Data Attestation: I personally reviewed and interpreted this ECG as follows: Interpretation: Will sinus rhythm with a rate of 71, normal IN, QRS Discharge Plan Discharge Clinical Impression: Chest pain Patient Disposition: Admitted As Inpatient Prescriptions: No Action pantoprazole 20 mg tablet,delayed release (DR/EC) 20 mg PO DAILY Qty: 60 0RF Rx Instructions: patient is not tolerating Omeprazole, atorvastatin 40 mg tablet 40 mg PO DAILY Qty: 30 0RF duloxetine 30 mg capsule,delayed release(DR/EC) 30 mg PO DAILY Qty: 30 0RF hydroxyzine pamoate 50 mg capsule 50 mg PO BID 0RF tramadol 50 mg tablet 50 mg PO DAILY PRN (Reason: Pain (Scale Score 4-6)) 0RF montelukast 10 mg tablet 10 mg PO BEDTIME 0RF albuterol sulfate 90 mcg/actuation HFA aerosol inhaler 1 inh inhalation Q4H PRN (Reason: bronchospasm) Qty: 8.5 0RF albuterol sulfate 2.5 mg /3 mL (0.083 %) solution for nebulization 2.5 mg inhalation Q4-6H PRN (Reason: bronchospasm) Qty: 15 0RF gabapentin 300 mg capsule 300 mg PO DAILY Qty: 30 1RF gabapentin 600 mg tablet 600 mg PO BEDTIME 30 Days Qty: 30 1RF Rx Instructions: Take gabapentin 600 mg at bedtime. Continue taking gabapentin 300 mg in the morning (DME) nebulizers Misc See Rx Instructions .Route Qty: 1 0RF Rx Instructions: As directed 1 inhalation bid prn bronchospasms quetiapine [Seroquel] 50 mg tablet 50 mg PO DAILY Qty: 30 0RF zolpidem [Ambien] 10 mg tablet 10 mg PO BEDTIME PRN (Reason: insomnia) Qty: 30 0RF amlodipine 5 mg tablet 5 mg PO DAILY Qty: 20 0RF divalproex [Depakote] 250 mg tablet,delayed release (DR/EC) 250 mg PO BID Qty: 30 1RF Flovent HFA 110 mcg/actuation HFA aerosol inhaler 1 puff inhalation BID Qty: 12 0RF cholecalciferol (vitamin D3) 125 mcg (5,000 unit) capsule 125 mcg PO DAILY Qty: 30 1RF (DME) Blood Pressure Cuff Misc See Rx Instructions .Route Qty: 1 0RF Rx Instructions: As directed, electronic bp cuff, take bp twice a day (DME) Altera Nebulizer System Misc See Rx Instructions .Route Qty: 1 0RF Rx Instructions: As directed, 1 inhalation bid polyethylene glycol 3350 [Miralax] 17 gram powder in packet 17 g PO DAILY Qty: 100 0RF fuoeazsjmd-jqlgjiwgxachn-tpae 50-325-40 mg capsule 1 cap PO Q4-6H PRN (Reason: pain) Qty: 14 0RF sennosides [Senokot] 8.6 mg tablet 8.6 mg PO BID PRN (Reason: constipation) Qty: 30 0RF
[2022-02-20 15:07] LABS: Troponin-I High Sensitivity < 3.5 ng/L (<3.5-17.0)
[2022-02-20 15:08] LABS: Lipase 23 U/L (8-78)
[2022-02-20 16:00] VITALS: BP 109/68; PULSE 76; RESP 18; TEMP 36.6; O2SAT 99
[2022-02-20] MEDS: Aspirin 81 MG TAB.CHEW 324 MG PO (16:02)
[2022-02-20] MEDS: Morphine Sulfate 4 MG/ML CARTRIDGE IVPUSH ×2 (16:02→22:27)
--- NOTE | 2022-02-20 16:03 | PHA.MEDREC ---
Pharmacy Consult ? Medication Reconciliation Pharmacy has completed the medication reconciliation.
--- NOTE | 2022-02-20 16:04 | PC.NURSE ---
patient a&ox3, iv inserted, labs drawn, covid swab obtained, reheater helper nsr 70s, vss, pt medicated per order, will continue to monitor.
[2022-02-20 16:09] LABS: INTERNATIONAL NORM RATIO 1.1 (0.9-1.1); Prothrombin Time 12.8 SEC (9.9-13.0)
[2022-02-20 16:13] LABS: D Dimer High Sensitivity < 150 NG/ML
[2022-02-20 16:23] LABS: COVID-19 Test Negative (Negative); IDNOW Serial# 55D5AD1C
--- NOTE | 2022-02-20 17:04 | PM.IMHP ---
History of Present Illness Date of Service: 02/20/22 Attending physician on admission: Mikaela Davis Chief Complaint: chest pain 51 y/o F with PMH significant for hypertension, hypercholesteremia, current heavy smoker , fibromyalgia, asthma, environmental allergies, Bipolar 1 disorder, depression, anxiety and persistent insomia?: Came to the hospital complaining of chest pain ,she said-she has on and off chest pain for couple months-but yesterday and today her chest pain was getting worse. Chest pain is sharp/pressure type, left upper pectoral area radiating to the lower left side, reproducible, exertional, also complaining of some shortness of breath with chest pain. She says her son has terminal cancer-she had some stressful situation also since yesterday and was crying the whole day and having chest pain as well as her blood pressure was also elevated yesterday as per the patient. ?Had excercise stress test 02/11 in which patient had chest pain, EKG changes (inferiorly during activity, laterally V4-V6). Plans to obtain nuclear stress and patient see cards outpatient.? Patient tells me she has scheduled appointment with Cardiology in February. ED physician given aspirin and morphine and patient chest pain seems to be improved significantly. Troponin x1 negative, another set of troponin ordered. EKG on admission seems to be fine no ST changes Chest x-ray seems fine. Review of Systems Review of Systems: Denies any new complaint of abdominal pain or fever or chills or vomiting or nausea. Denies any cough Denies any weakness or numbness. No headache or blurry vision or urinary complaints. Yes all other systems are reviewed and are negative [facility] Medical History Allergic rhinitis Asthma Bipolar 1 disorder Fibromyalgia Generalized anxiety disorder GERD (gastroesophageal reflux disease) Hypercholesteremia Hypertension Family History Mother Depression Hypertension Bone cancer Anxiety Mental health disorder Father Diabetes Pertinent family history: Mother in her 60s due to DE, grandparents also due to DE. Surgical History History of appendectomy History of back surgery History of tubal ligation Social History Housing: Apartment Alcohol intake: former Patient Tobacco Use Status: Current everyday Tobacco user Tobacco use type: Cigarette Cigarette Packs Per Day: 1 Cigarettes Per Day: 10 Smoked in Last 30 Days: Yes e-Cigarette/Vaping Use: Never Used Second Hand Smoke Exposure: Yes Use of substances other than those prescribed or required for medical reasons: No Advance Directives: No Advance Directives Information Provided: No service: No Current occupational status: disabled Cognitive needs: No Hearing needs: No Vision needs: Yes (Glasses) Meds Allergies Allergy/AdvReac Type Severity Reaction Status Date / Time No Known Allergies Allergy Verified 02/11/22 09:03 [No Known Allergies*] Active Medications: Current Medications Pharmacy Consult (Consult Rx Perform Med Rec) 1 each MISCELLANE ONCE PRN PRN Reason: Consult order Home Medications Medication Instructions Recorded Confirmed Last Taken Type hydroxyzine pamoate 50 mg capsule 50 mg PO BID 02/20/22 02/20/22 Unknown History montelukast 10 mg tablet 10 mg PO BEDTIME 02/20/22 02/20/22 Unknown History tramadol 50 mg tablet 50 mg PO DAILY PRN 02/20/22 02/20/22 Unknown History Physical Exam Vital Signs and Narrative: Vital Signs: Last Vital Signs Temp 97.8 F 02/20/22 16:00 Pulse 76 02/20/22 16:00 Resp 18 02/20/22 16:00 BP 109/68 02/20/22 16:00 Pulse Ox 99 02/20/22 16:00 BMI result Body Mass Index 34.0 Appearance: Alert.? Oriented X3.? anxious eyes:pupils reactive to light.? Sclera nonicteric.? ENT: Pharynx normal.? Moist mucous membranes. cvs: rrr, [id number] . chest pain reproducable. res: clear to auscultation ,no rhonchii or wheezing abd: no rebound or guarding ,nt, bs present. ext pulses present , no cyanosis . neuro: axo3 , nonfocal. Results Labs CBC and Chem 7: 02/20/22 14:40 02/20/22 14:40 Labs: Laboratory Results - last 24 hr 02/20/22 02/20/22 02/20/22 14:40 14:40 15:57 MCV 91.7 MCH 29.4 MCHC 32.1 RDW 14.5 Plt Count 351 MPV 9.9 Immature Gran % (Auto) 0.4 Neut % (Auto) 59.2 Lymph % (Auto) 32.5 [place] % (Auto) 4.7 Eos % (Auto) 2.6 Baso % (Auto) 0.6 Lymph # (Auto) 3.0 [place] # (Auto) 0.4 Eos # (Auto) 0.2 Baso # (Auto) 0.1 Abs Immat Gran (auto) 0.04 H Absolute Neuts (auto) 5.5 Absolute Nucleated RBC 0.000 Nucleated RBC % (auto) 0.0 PT INR D-Dimer High Sensitivty < 150 Anion Gap 11 L Estim Creat Clear Calc 90.3 Estimated GFR > 60 Random Glucose 113 Calcium 9.7 Lipase 23 COVID-19 (JUN) COVID-19 Clin Com 02/20/22 02/20/22 15:57 15:57 MCV MCH MCHC RDW Plt Count MPV Immature Gran % (Auto) Neut % (Auto) Lymph % (Auto) [place] % (Auto) Eos % (Auto) Baso % (Auto) Lymph # (Auto) [place] # (Auto) Eos # (Auto) Baso # (Auto) Abs Immat Gran (auto) Absolute Neuts (auto) Absolute Nucleated RBC Nucleated RBC % (auto) PT 12.8 INR 1.1 D-Dimer High Sensitivty Anion Gap Estim Creat Clear Calc Estimated GFR Random Glucose Calcium Lipase COVID-19 (JUN) Negative COVID-19 Clin Com See Note Imaging Radiologist's Impressions: Impressions Chest X-Ray 02/20/22 15:26 IMPRESSION: No acute cardiopulmonary process. Mild peribronchial thickening of the upper lobes, slightly more prominent than on prior exam. Assessment and Plan (1) Chest pain: Status: Acute (2) Asthma: Status: Acute (3) Smoker: Status: Acute Plan 51 y/o F with PMH significant for hypertension, hypercholesteremia, current heavy smoker, family hx of DE. 1. chest pain Troponin x1 negative, 2nd troponin ordered ED physician discussed the case with Cardiology-recommended to admit for further workup including nuclear stress test, continue aspirin, beta-tavares, lipid panel added. cardiology eval. 2. HTN: Hold amlodipine, started on metoprolol. 3. Asthma: Seems stable, continue home medications 4.Migrane: Continue Fioricet. 5. depression/anxiety: Continue home medications. 6. Heavy smoker: Added nicotine patch 7. Obesity: Encouraged for weight loss , consider out patient bariatric appointment. DVT prophylaxis: SubQ Lovenox Assessment and plan discussed with patient in detail length she understand and in agreement with the above plan, time spent 70 minutes, patient is full code. Quality Stroke Does the patient have a stroke diagnosis?: No VTE Prior VTE?: No VTE Risk Level:: Medical - moderate - high VTE Device Contraindication: N/A - Device Ordered VTE Drug Contraindication: N/A - Med Ordered
[2022-02-20 17:07] LABS: Alanine Aminotransferase 22 U/L (0-31); Albumin Level 4.1 g/dL (3.5-5.0); Alkaline Phosphatase 100 U/L (39-117); Aspartate Amino Transferase 16 U/L (5-31); Bilirubin Direct 0.2 mg/dL (0.0-0.5); Bilirubin Total 0.6 mg/dL (0.0-1.0)
[2022-02-20 17:58] VITALS: BP 130/73; PULSE 70; RESP 18; TEMP 36.8; O2SAT 100
[2022-02-20] MEDS: Nicotine 21 MG PATCH.TD24 TRANSDERMA (18:36)
[2022-02-20 18:56] LABS: Appearance Urine CLEAR; Color Urine STRAW; Glucose Urine UA NEG (NEG); Leukocyte Esterase Urine NEG (NEG); Nitrite Urine NEG (NEG); PH 6.5 (5.0-8.0); UACC Culture Trigger NO; Urine Blood 1+ (NEG); Urine Ketones NEG (NEG); Urine Protein NEG (NEG-TRACE)
[2022-02-20 19:06] LABS: Squamous Epithelial Cell Urine TRACE /LPF; WBC Urine 0-2 /HPF (0-4)
[2022-02-20 19:07] LABS: Mucus Urine TRACE /LPF
[2022-02-20 19:24] LABS: Troponin-I High Sensitivity < 3.5 ng/L (<3.5-17.0)
[2022-02-20] MEDS: Metoprolol Tartrate 12.5 MG HALFTAB PO (20:21)
[2022-02-20] MEDS: Divalproex Sodium 250 MG TABLET.DR PO (20:21)
[2022-02-20] MEDS: hydrOXYzine HCL 50 MG TABLET PO (20:21)
[2022-02-20] MEDS: Montelukast Sodium 10 MG TABLET PO (20:21)
[2022-02-20] MEDS: Enoxaparin Sodium 40 MG/0.4 ML SYRINGE SUBCUT (20:22)
[2022-02-20] MEDS: Gabapentin 600 MG TABLET PO (20:22)
[2022-02-20] MEDS: traMADoL HCL 50 MG TABLET PO (20:23)
--- NOTE | 2022-02-20 20:26 | PC.NURSE ---
patient a&ox3, shelter monitor intact nsr 80-90s, vitals continue to be stable, pt medicated for pain and with nightly meds, call klein within reach, family at bedside, will continue to monitor.
[2022-02-20 21:19] VITALS: BP 119/66; PULSE 78; RESP 18; TEMP 36.7; O2SAT 98
[2022-02-20 22:09] VITALS: BP 111/62; PULSE 74; RESP 22; O2SAT 96
--- NOTE | 2022-02-20 22:14 | PC.NURSE ---
patient continues to c/o 08/06 pain- left hest pain radiating to her neck, pt was previously medicated with ultram without relief, Dr. Hitchcock stated to repeat ekg and give 4 mg iv morphine.
--- NOTE | 2022-02-20 22:32 | PC.NURSE ---
repeat ekg performed and sent via tiger text to hospitalist, pt medicated per order, cardiac monitor technician intact continues to be nsr 80s, will continue to monitor.
--- NOTE | 2022-02-21 05:43 | PC.NURSE ---
Pt resting quietly at this time on the stretcher. Awaiting admission. Skin wd, resp reg and even, NSR on the monitor.
[2022-02-21 05:52] VITALS: BP 104/66; PULSE 69; RESP 16; O2SAT 97
--- NOTE | 2022-02-21 08:35 | CA_ITS ---
Transthoracic Echocardiogram Patient (Last, First, Middle): Caroline Solis J Gender: Female Date of : 1970 Age: 51 Procedure Date: 02/21/2022 Procedure Type: Transthoracic Echocardiogram Location: ER Height: 162.56 cm Weight: 89.81 kg BSA: 1.95 m2 Heart Rate: bpm BP: 104 / 66 mmHg Retort Fireman: VH/TO Referring MD: Mikaela Davis MD Symptoms: chest pain Study Quality: Fair ECG Rhythm: Sinus Conclusions: - The left ventricular systolic function is normal. The visually estimated ejection fraction is between 65-70%. - No obvious valvular pathology seen on this study. Findings Left Ventricle Normal left ventricular cavity size. There is normal left ventricular wall thickness. The left ventricular systolic function is normal. The visually estimated ejection fraction is between 65-70%. There is no evidence of regional wall motion abnormalities. Diastolic function is normal for age. In the basal inferior wall, endocardium not well visualized. Right Ventricle Normal right ventricular cavity size and systolic function. Atria Both atria are normal in size. Aortic Valve There is a normal trileaflet aortic valve. There is no aortic valve stenosis. There is no aortic valve regurgitation. Mitral Valve The mitral valve appears normal. There is no mitral valve regurgitation. There is no mitral valve stenosis. Pulmonic Valve The pulmonic valve was not well visualized. Tricuspid Valve There is trace tricuspid valve regurgitation. The pulmonary artery systolic pressure is normal. Great Vessels The asc aorta and aortic arch are normal in size. Venous The inferior vena cava is normal in size and collapses greater than 50% with inspiration. Pericardium/Pleural There is no evidence of pericardial effusion. Prior Study Comparison No prior study available for comparison. Recommendations, Care & Conclusions No obvious valvular pathology seen on this study. Measurements 2D Linear Measurements IVSd: 1.02 0.6-0.9/0.6-1.0 cm LVIDd: 4.64 3.9-5.3/4.2-5.9 cm LVIDd Index: 2.38 2.4-3.2/2.2-3.1 cm/m2 LVIDs: 3.04 2.0-3.6 cm LVPWd: 0.96 0.7-1.1 cm LA Diam: 3.60 2.7-3.8/3.0-4.0 cm LAIDs Index: 1.85 1.5-2.3 cm/m2 LV Mass: 197.83 67-162/88-224 g LV Mass Index: 101.45 43-95/49-115 g/m2 LVOT Diam: 2.00 3.0+(-)1.3 cm Mitral Valve MV Pk E: 0.61 MV PK A: 0.65 MV Decel Time: 197.00 E/A: 0.90 E'Lateral: 9.57 E'Medial: 8.70 E/E' Med: 7.00 E/E' Lat: 6.40 PHT: 58.00 MVA PHT: 3.79 Decel [place]: 3.11 Aortic Valve AoV Pk Antonio: 1.59 AoV Mn Antonio: 0.90 AoV VTI: 0.22 AoV Pk Grad: 10.00 Aov Mn Grad: 4.00 ABIMBOLA Cont.VTI: 2.66 LVOT LVOT Pk Antonio: 1.14 LVOT Mn Antonio: 0.67 LVOT VTI: 0.19 LVOT Pk Grad: 5.00 LVOT Mn Grad: 2.00 LVOT Diam: 2.00 LVOT Area: 3.14 Diastolic Function MV Pk E: 0.61 MV Pk A: 0.65 E/A: 0.90 E'Medial: 8.70 E/E' Med: 7.00 E' Laterial: 9.57 E/E' Lat: 6.40 Right Ventricle TAPSE (mm): 21.70 TVS' Antonio: 12.70 Tricuspid Valve TR Pk Antonio: 1.94 TR Pk Grad: 15.00 Great Vessels Aorta Sinus of Valsalva: 2.96 2.0-3.[address] [place]: 2.45 1.7-3.4 cm Ao Asc: 2.70 2.1-3.4 cm Ao Arch: 2.80 Pulmonary Valve PV Pk Antonio: 1.03 Peak PV Grad: 4.00 Updated in Other Vendor System with Status of Final Clinton Weston MD electronically signed on 02/21/2022 4:02:33 PM with status of Final
[2022-02-21] MEDS: ondansetron HCL 4 MG/2 ML VIAL IVPUSH (08:42)
[2022-02-21] MEDS: Fluticasone Propionate 100 MCG BLST.W.DEV 1 PUFF INHALE (09:06)
[2022-02-21 09:07] VITALS: PULSE 89; RESP 12; O2SAT 99
[2022-02-21 10:09] LABS: Hematocrit 44.1 % (37.0-47.0); Hemoglobin 13.7 g/dl (12.0-16.0); Mean Corpuscular HGB Conc 31.1 g/dl (31.0-35.0); Mean Corpuscular Hemoglobin 29.5 pg (27.0-33.0); Mean Platelet Volume 10.7 fL (9.4-12.3); Platelet Count 235 X10*3/uL (160-400); Red Blood Count 4.64 X10*6/uL (4.20-5.50); Red Cell Distribution Width 14.6 % (11.0-16.0); White Blood Count 9.9 X10*3/uL (4.8-10.8)
--- NOTE | 2022-02-21 10:13 | P.CONCA_ITS ---
History of Present Illness History of Present Illness Date of Service: 02/21/22 Chief complaint: Chest pain Narrative: This is a cardiology consultation regarding chest pains. Patient has had this pain for almost 6 months according to her. No known coronary disease myocardial infarction. She has a history of hypertension, hyperlipidemia, smoking, fibromyalgia, anxiety and depression with bipolar disorder. She states that she gets this pain in both sides the chest and she also points to several areas in the abdomen as well including the right upper quadrant. Additional according to the nurse taking care of her in the ER she has been having nausea and she threw up as well. Overall, somewhat nonspecific constellation of symptoms. From the cardiac standpoint is concern for any coronary disease and hence we have been asked to see her. Patient does not have any known CAD but she has apparently had a recent abnormal stress test per documentation. Otherwise, long history of smoking and she does get some shortness of breath from time to time which could be from her smoking itself. She states that she is under lot of stress because of her sisters diagnosed with cancer and apparently sisters and has also been diagnosed with diffuse cancer. Review of Systems Review of Systems: Yes all other systems are reviewed and are negative Constitutional: Constitutional: Reports as per HPI Eyes: Eyes: Reports as per HPI ENT: Reports as per HPI Cardiovascular: Cardiovascular: Reports as per HPI, Denies acrocyanosis, Denies cool extremities, Reports chest pain, Denies leg edema, Denies lightheadedness, Denies palpitations and Denies dyspnea Respiratory: Respiratory: Reports as per HPI, Reports no additional respiratory complaints and Denies dyspnea Gastrointestinal: Gastrointestinal: Reports as per HPI, Reports no additional gastrointestinal complaints, Reports abdominal pain, Reports nausea and Reports vomiting Genitourinary: Genitourinary: Reports as per HPI Musculoskeletal: Musculoskeletal: Reports no additional musculoskeletal complaints and Reports as per HPI Integumentary/Breasts: Skin/Breast: Reports system reviewed and no additional complaints, except as docu Neurologic: Reports system reviewed and no additional complaints, except as documented and Reports as per HPI Psychiatric: Psychiatric: Reports no additional psychiatric complaints, Reports as per HPI, Reports anxiety and Reports depression Endocrine: Endocrine: Reports no additional endocrine complaints, Reports as p er HPI and Denies palpitations Hematologic/Lymphatic: Hematologic/Lymphatic: Reports no additional hematologic/lymphatic complaints and Reports as per HPI Allergic/Immunologic: Allergic/Immunologic: Reports no additional allergic/immunologic complaints and Reports as per HPI COUNT INCLUDES THE [facility] Past Medical History Medical History Allergic rhinitis Asthma Bipolar 1 disorder Fibromyalgia Generalized anxiety disorder GERD (gastroesophageal reflux disease) Hypercholesteremia Hypertension Family History Family History Mother Depression Hypertension Bone cancer Anxiety Mental health disorder Father Diabetes Surgical History Surgical History History of appendectomy History of back surgery History of tubal ligation Social History Social History Housing: Apartment Alcohol intake: former Patient Tobacco Use Status: Current everyday Tobacco user Tobacco use type: Cigarette Cigarette Packs Per Day: 1 Cigarettes Per Day: 10 Smoked in Last 30 Days: Yes e-Cigarette/Vaping Use: Never Used Second Hand Smoke Exposure: Yes Use of substances other than those prescribed or required for medical reasons: No Advance Directives: No Advance Directives Information Provided: No service: No Current occupational status: disabled Cognitive needs: No Hearing needs: No Vision needs: Yes (Glasses) Meds Allergies Allergy/AdvReac Type Severity Reaction Status Date / Time No Known Allergies Allergy Verified 02/11/22 09:03 [No Known Allergies*] Active Medications: Current Medications Albuterol Sulfate (Albuterol Sulfate (0.083%) 2.5 Mg/3 Ml Vial.Fatuma) 2.5 mg INHALE Q4H PRN PRN Reason: bronchospasm Albuterol Sulfate (Albuterol Sulfate 90 Mcg 8 Gm Inhaler) 1 puff INHALE Q4H PRN PRN Reason: bronchospasm Aspirin (Aspirin Enteric Coated 81 Mg Tablet.) 81 mg PO DAILY [facility] Atorvastatin Calcium (Atorvastatin Calcium 40 Mg Tablet) 40 mg PO DAILY [facility] Divalproex Sodium (Divalproex Sodium 250 Mg Tablet.) 250 mg PO BID [facility] Last Admin: 02/20/22 20:21 Dose: 250 mg Documented by: Duloxetine HCl (Duloxetine Hcl 30 Mg Capsule.) 30 mg PO DAILY [facility] Enoxaparin Sodium (Enoxaparin Sodium 40 Mg/0.4 Ml Syringe) 40 mg SUBCUT Q24H [facility] Last Admin: 02/20/22 20:22 Dose: 40 mg Documented by: Fluticasone Propionate (Fluticasone Propionate 100 Mcg Blst.W.Dev) 1 puff INHALE RBID [facility] Last Admin: 02/21/22 09:06 Dose: 1 puff Documented by: Gabapentin (Gabapentin 300 Mg Capsule) 300 mg PO DAILY [facility] Gabapentin (Gabapentin 600 Mg Tablet) 600 mg PO BEDTIME [facility] Last Admin: 02/20/22 20:22 Dose: 600 mg Documented by: Hydroxyzine HCl (Hydroxyzine Hcl 50 Mg Tablet) 50 mg PO BID [facility] Last Admin: 02/20/22 20:21 Dose: 50 mg Documented by: Lactated Ringer's (Lr) 1,000 mls @ 100 mls/hr IVCONT .Q10H [facility] Metoprolol Tartrate (Metoprolol Tartrate 12.5 Mg Halftab) 12.5 mg PO BID [facility]; Protocol Last Admin: 02/20/22 20:21 Dose: 12.5 mg Documented by: Montelukast Sodium (Montelukast Sodium 10 Mg Tablet) 10 mg PO BEDTIME [facility] Last Admin: 02/20/22 20:21 Dose: 10 mg Documented by: Nicotine (Nicotine 21 Mg Patch.Td24) 21 mg TRANSDERMA DAILY [facility] Last Admin: 02/20/22 18:36 Dose: 21 mg Documented by: Omeprazole (Omeprazole 20 Mg Capsule.Dr) 20 mg PO DAILY@0630 [facility] Last Admin: 02/21/22 08:42 Dose: Not Given Documented by: Ondansetron HCl (Ondansetron Hcl 4 Mg/2 Ml Vial) 4 mg IVPUSH Q6H PRN PRN Reason: Nasal Congestion Pharmacy Consult (Consult Rx Perform Med Rec) 1 each MISCELLANE ONCE PRN PRN Reason: Consult order Polyethylene Glycol (Polyethylene Glycol 3350 17 Gm Powd.Pack) 17 gm PO DAILY [facility] Quetiapine Fumarate (Quetiapine Fumarate 50 Mg Tablet) 50 mg PO DAILY [facility] Senna (Sennosides 8.6 Mg Tablet) 8.6 mg PO BID PRN PRN Reason: constipation Sodium Chloride (0.9 % Sodium Chloride Flush 3 Ml Syringe) 3 ml IVFLUSH QSHIFT [facility] Last Admin: 02/21/22 08:30 Dose: Not Given Documented by: Tramadol HCl (Tramadol Hcl 50 Mg Tablet) 50 mg PO DAILY PRN PRN Reason: Pain (Scale Score 4-6) Last Admin: 02/20/22 20:23 Dose: 50 mg Documented by: Vitamin D (Cholecalciferol (Vitamin D3) 25 Mcg Tablet) 125 mcg PO DAILY VIVI Zolpidem Tartrate (Zolpidem Tartrate 5 Mg Tablet) 10 mg PO BEDTIME PRN PRN Reason: insomnia Home Medications Medication Instructions Recorded Confirmed Last Taken Type hydroxyzine pamoate 50 mg capsule 50 mg PO BID 02/20/22 02/20/22 Unknown History montelukast 10 mg tablet 10 mg PO BEDTIME 02/20/22 02/20/22 Unknown History tramadol 50 mg tablet 50 mg PO DAILY PRN 02/20/22 02/20/22 Unknown History Physical Exam Vital Signs: Vital Signs: Last Vital Signs Temp 98.1 F 02/20/22 21:19 Pulse 89 02/21/22 09:07 Resp 12 02/21/22 09:07 BP 104/66 02/21/22 05:52 Pulse Ox 97 02/21/22 05:52 BMI result Body Mass Index 34.0 Const: General: comfortable HEENT: Other: Unremarkable Head: Yes normal to inspection Ears: external ears normal General nose exam: Normal external nose present Face and sinus: Yes normal facial exam Mouth: oropharynx normal Neck: Neck: Yes normal visual inspection Chest: Chest palpation & inspection: normal inspection of the chest Resp: Auscultation: clear to auscultation bilaterally Cardio: Palpation: normal PMI Heart sounds: S1 normal heart sound present, S2 normal heart sound present, no gallops, Murmur heart sound present systolic early, II/ and at the right sternal border and no rubs GI: Palpation (GI): Soft to palpation Back/Spine/Pelvis: Other: unremarkable Skin: General skin exam: no rashes or lesions noted Neuro: Cognition (Neuro): normal cognition Extrem: General: Yes normal to inspection Psych: Mental Status: mental status grossly normal Objective Labs and Meds Result diagrams: 02/20/22 14:40 02/20/22 14:40 Lab results: Laboratory Results - last 24 hr 02/20/22 02/20/22 02/20/22 14:40 14:40 14:40 WBC 9.3 RBC 4.32 Hgb 12.7 Hct 39.6 MCV 91.7 MCH 29.4 MCHC 32.1 RDW 14.5 Plt Count 351 MPV 9.9 Immature Gran % (Auto) 0.4 Neut % (Auto) 59.2 Lymph % (Auto) 32.5 [place] % (Auto) 4.7 Eos % (Auto) 2.6 Baso % (Auto) 0.6 Lymph # (Auto) 3.0 [place] # (Auto) 0.4 Eos # (Auto) 0.2 Baso # (Auto) 0.1 Abs Immat Gran (auto) 0.04 H Absolute Neuts (auto) 5.5 Absolute Nucleated RBC 0.000 Nucleated RBC % (auto) 0.0 PT INR D-Dimer High Sensitivty Sodium 143 Potassium 4.2 Chloride 108 Carbon Dioxide 28 Anion Gap 11 L BUN 18 H Creatinine 0.80 Estim Creat Clear Calc 90.3 Estimated GFR > 60 Random Glucose 113 Calcium 9.7 Total Bilirubin 0.6 Direct Bilirubin 0.2 AST 16 ALT 22 Alkaline Phosphatase 100 Troponin I High Sens < 3.5 Total Protein 7.0 Albumin 4.1 Lipase 23 Urine Color Urine Appearance Urine pH Ur Specific [place] Urine Protein Urine Glucose (UA) Urine Ketones Urine Blood Urine Nitrite Ur Leukocyte Esterase Urine RBC Urine WBC Ur Squamous Epith Cells Urine Bacteria Urine Mucus COVID-19 (JUN) COVID-Sem[employer]ria 02/20/22 02/20/22 02/20/22 15:57 15:57 15:57 WBC RBC Hgb Hct MCV MCH MCHC RDW Plt Count MPV Immature Gran % (Auto) Neut % (Auto) Lymph % (Auto) [place] % (Auto) Eos % (Auto) Baso % (Auto) Lymph # (Auto) [place] # (Auto) Eos # (Auto) Baso # (Auto) Abs Immat Gran (auto) Absolute Neuts (auto) Absolute Nucleated RBC Nucleated RBC % (auto) PT 12.8 INR 1.1 D-Dimer High Sensitivty < 150 Sodium Potassium Chloride Carbon Dioxide Anion Gap BUN Creatinine Estim Creat Clear Calc Estimated GFR Random Glucose Calcium Total Bilirubin Direct Bilirubin AST ALT Alkaline Phosphatase Troponin I High Sens Total Protein Albumin Lipase Urine Color Urine Appearance Urine pH Ur Specific [place] Urine Protein Urine Glucose (UA) Urine Ketones Urine Blood Urine Nitrite Ur Leukocyte Esterase Urine RBC Urine WBC Ur Squamous Epith Cells Urine Bacteria Urine Mucus COVID-19 (JUN) Negative COVID-19 [employer] See Note 02/20/22 02/20/22 18:40 18:55 WBC RBC Hgb Hct MCV MCH MCHC RDW Plt Count MPV Immature Gran % (Auto) Neut % (Auto) Lymph % (Auto) [place] % (Auto) Eos % (Auto) Baso % (Auto) Lymph # (Auto) [place] # (Auto) Eos # (Auto) Baso # (Auto) Abs Immat Gran (auto) Absolute Neuts (auto) Absolute Nucleated RBC Nucleated RBC % (auto) PT INR D-Dimer High Sensitivty Sodium Potassium Chloride Carbon Dioxide Anion Gap BUN Creatinine Estim Creat Clear Calc Estimated GFR Random Glucose Calcium Total Bilirubin Direct Bilirubin AST ALT Alkaline Phosphatase Troponin I High Sens < 3.5 Total Protein Albumin Lipase Urine Color STRAW Urine Appearance CLEAR Urine pH 6.5 Ur Specific [place] 1.010 Urine Protein NEG Urine Glucose (UA) NEG Urine Ketones NEG Urine Blood 1+ H Urine Nitrite NEG Ur Leukocyte Esterase NEG Urine RBC 5-9 H Urine WBC 0-2 Ur Squamous Epith Cells TRACE Urine Bacteria NONE Urine Mucus TRACE COVID-19 (JUN) COVID-19 Clin Com Imaging Radiologist's impression: Impressions Chest X-Ray 02/20/22 15:26 IMPRESSION: No acute cardiopulmonary process. Mild peribronchial thickening of the upper lobes, slightly more prominent than on prior exam. Assessment and Plan (1) Precordial chest pain: Status: Acute Plan Cardiac studies reviewed. EKG with sinus rhythm, 71/Min; LVH but otherwise unremarkable. Repeat EKG is also not showing any acute changes. In the stress test, she was able to perform up to 6.5 Mets on a [place] protocol with chest pain, shortness of breath and EKG changes of ischemia. Currently, high sensitivity troponins are negative x2. Overall, she has very atypical symptoms including chest abdominal pain with nausea and vomiting but had a recent positive stress test. However no evidence of ACS based on EKGs and troponins. Will review the echocardiogram being completed today. Based on this, can plan on timing of nuclear stress test. Procedures Date of Service Date of Service: 02/21/22
[2022-02-21 10:29] LABS: Alanine Aminotransferase 21 U/L (0-31); Alkaline Phosphatase 103 U/L (39-117); Anion Gap 13 (12-20); Aspartate Amino Transferase 17 U/L (5-31); Bilirubin Direct 0.3 mg/dL (0.0-0.5); Bilirubin Total 0.9 mg/dL (0.0-1.0); Blood Urea Nitrogen 24 mg/dL (9-16); Calcium 9.4 mg/dL (8.4-10.2); Chloride 106 mmol/L (96-108); Creatinine Clr Calc Pharmacy 98.9; Estimated Glomerular Filt Rate > 60; Glucose Random 89 mg/dL (60-115); Lipase 18 U/L (8-78); Potassium 4.5 mmol/L (3.3-5.1); Sodium 140 mmol/L (135-145); Total Protein 7.1 g/dL (6.5-8.0)
[2022-02-21 10:31] LABS: Carbon Dioxide 26 mmol/L (22-29)
[2022-02-21] MEDS: Metoprolol Tartrate 12.5 MG HALFTAB PO ×2 (10:55→21:28)
[2022-02-21] MEDS: DULoxetine HCl 30 MG CAPSULE.DR PO (10:55)
[2022-02-21] MEDS: hydrOXYzine HCL 50 MG TABLET PO ×2 (10:56→21:28)
[2022-02-21] MEDS: Aspirin Enteric Coated 81 MG TABLET.DR PO (10:56)
[2022-02-21] MEDS: Divalproex Sodium 250 MG TABLET.DR PO (10:56)
[2022-02-21] MEDS: Gabapentin 300 MG CAPSULE PO (10:56)
[2022-02-21] MEDS: Atorvastatin Calcium 40 MG TABLET PO (10:56)
[2022-02-21] MEDS: Nicotine 21 MG PATCH.TD24 TRANSDERMA (10:56)
[2022-02-21] MEDS: QUEtiapine Fumarate 50 MG TABLET PO (10:56)
[2022-02-21] MEDS: polyethylene glycoL 3350 17 GM POWD.PACK PO (10:58)
[2022-02-21] MEDS: Lactated Ringers 1,000 ML 100 ML IVCONT ×2 (11:22→21:24)
[2022-02-21] MEDS: iohexoL 350 MG/ML 100 ML INFUS..BTL IV (11:34)
--- NOTE | 2022-02-21 13:01 | HO.PM.IMPN ---
Subjective Subjective Date of Service: 02/21/22 Interval History: Intractable nausea vomiting, epigastric/right upper quadrant pain. Review of Systems Chest pain seems to be resolving. Denies any shortness of breath. Patient is having intractable nausea vomiting as well as abdominal pain since morning. Cannot tolerate food. Physical Exam Vital Signs: Vital Signs: Last Vital Signs Temp 98.1 F 02/20/22 21:19 Pulse 89 02/21/22 09:07 Resp 12 02/21/22 09:07 BP 104/66 02/21/22 05:52 Pulse Ox 97 02/21/22 05:52 BMI result Body Mass Index 34.0 ?Appearance: Alert.? Oriented X3.? anxious eyes:pupils reactive to light.? Sclera nonicteric.? ENT: Pharynx normal.? Moist mucous membranes. cvs: rrr, [id number] . chest pain resolved. res: clear to auscultation ,no rhonchii or wheezing abd: epigastric/ruq pain,no rebound or guarding, bs present. ext pulses present , no cyanosis . neuro: axo3 , nonfocal. Objective Data Active Medications Albuterol Sulfate (Albuterol Sulfate (0.083%) 2.5 Mg/3 Ml Vial.Neb) 2.5 mg INHALE Q4H PRN PRN Reason: bronchospasm Albuterol Sulfate (Albuterol Sulfate 90 Mcg 8 Gm Inhaler) 1 puff INHALE Q4H PRN PRN Reason: bronchospasm Aspirin (Aspirin Enteric Coated 81 Mg Tablet.) 81 mg PO DAILY [facility] Last Admin: 02/21/22 10:56 Dose: 81 mg Documented by: KESHIA Atorvastatin Calcium (Atorvastatin Calcium 40 Mg Tablet) 40 mg PO DAILY [facility] Last Admin: 02/21/22 10:56 Dose: 40 mg Documented by: KESHIA Divalproex Sodium (Divalproex Sodium 250 Mg Tablet.) 250 mg PO BID [facility] Last Admin: 02/21/22 10:56 Dose: 250 mg Documented by: KESHIA Duloxetine HCl (Duloxetine Hcl 30 Mg Capsule.) 30 mg PO DAILY [facility] Last Admin: 02/21/22 10:55 Dose: 30 mg Documented by: KESHIA Enoxaparin Sodium (Enoxaparin Sodium 40 Mg/0.4 Ml Syringe) 40 mg SUBCUT Q24H [facility] Last Admin: 02/20/22 20:22 Dose: 40 mg Documented by: DILCIA Fluticasone Propionate (Fluticasone Propionate 100 Mcg Blst.W.Dev) 1 puff INHALE RBID [facility] Last Admin: 02/21/22 09:06 Dose: 1 puff Documented by: KOFI Gabapentin (Gabapentin 300 Mg Capsule) 300 mg PO DAILY [facility] Last Admin: 02/21/22 10:56 Dose: 300 mg Documented by: KESHIA Gabapentin (Gabapentin 600 Mg Tablet) 600 mg PO BEDTIME [facility] Last Admin: 02/20/22 20:22 Dose: 600 mg Documented by: DILCIA Hydroxyzine HCl (Hydroxyzine Hcl 50 Mg Tablet) 50 mg PO BID [facility] Last Admin: 02/21/22 10:56 Dose: 50 mg Documented by: KESHIA Lactated Ringer's (Lr) 1,000 mls @ 100 mls/hr IVCONT .Q10H [facility] Last Admin: 02/21/22 11:22 Dose: 100 mls/hr Documented by: AGNIESZKA Metoprolol Tartrate (Metoprolol Tartrate 12.5 Mg Halftab) 12.5 mg PO BID [facility]; Protocol Last Admin: 02/21/22 10:55 Dose: 12.5 mg Documented by: KESHIA Montelukast Sodium (Montelukast Sodium 10 Mg Tablet) 10 mg PO BEDTIME [facility] Last Admin: 02/20/22 20:21 Dose: 10 mg Documented by: DILCIA Nicotine (Nicotine 21 Mg Patch.Td24) 21 mg TRANSDERMA DAILY [facility] Last Admin: 02/21/22 10:56 Dose: 21 mg Documented by: KESHIA Omeprazole (Omeprazole 20 Mg Capsule.Dr) 20 mg PO DAILY@0630 [facility] Last Admin: 02/21/22 08:42 Dose: Not Given Documented by: KESHIA Non-Admin Reason: Nausea Ondansetron HCl (Ondansetron Hcl 4 Mg/2 Ml Vial) 4 mg IVPUSH Q6H PRN PRN Reason: Nasal Congestion Pharmacy Consult (Consult Rx Perform Med Rec) 1 each MISCELLANE ONCE PRN PRN Reason: Consult order Polyethylene Glycol (Polyethylene Glycol 3350 17 Gm Powd.Pack) 17 gm PO DAILY [facility] Last Admin: 02/21/22 10:58 Dose: 17 gm Documented by: KESHIA Quetiapine Fumarate (Quetiapine Fumarate 50 Mg Tablet) 50 mg PO DAILY [facility] Last Admin: 02/21/22 10:56 Dose: 50 mg Documented by: KESHIA Senna (Sennosides 8.6 Mg Tablet) 8.6 mg PO BID PRN PRN Reason: constipation Sodium Chloride (0.9 % Sodium Chloride Flush 3 Ml Syringe) 3 ml IVFLUSH QSHIFT [facility] Last Admin: 02/21/22 08:30 Dose: Not Given Documented by: KESHIA Non-Admin Reason: Med Not Available Tramadol HCl (Tramadol Hcl 50 Mg Tablet) 50 mg PO DAILY PRN PRN Reason: Pain (Scale Score 4-6) Last Admin: 02/20/22 20:23 Dose: 50 mg Documented by: DILCIA Vitamin D (Cholecalciferol (Vitamin D3) 25 Mcg Tablet) 125 mcg PO DAILY [facility] Last Admin: 02/21/22 10:57 Dose: Not Given Documented by: KESHIA Non-Admin Reason: Patient Refused Zolpidem Tartrate (Zolpidem Tartrate 5 Mg Tablet) 10 mg PO BEDTIME PRN PRN Reason: insomnia Labs CBC & Chem 7: 02/21/22 09:59 02/21/22 09:59 Labs: Laboratory Results - last 24 hr 02/20/22 02/20/22 02/20/22 14:40 14:40 15:57 MCV 91.7 MCH 29.4 MCHC 32.1 RDW 14.5 Plt Count 351 MPV 9.9 Immature Gran % (Auto) 0.4 Neut % (Auto) 59.2 Lymph % (Auto) 32.5 [place] % (Auto) 4.7 Eos % (Auto) 2.6 Baso % (Auto) 0.6 Lymph # (Auto) 3.0 [place] # (Auto) 0.4 Eos # (Auto) 0.2 Baso # (Auto) 0.1 Abs Immat Gran (auto) 0.04 H Absolute Neuts (auto) 5.5 Absolute Nucleated RBC 0.000 Nucleated RBC % (auto) 0.0 PT INR D-Dimer High Sensitivty < 150 Anion Gap 11 L Estim Creat Clear Calc 90.3 Estimated GFR > 60 Random Glucose 113 Calcium 9.7 Total Bilirubin 0.6 Direct Bilirubin 0.2 AST 16 ALT 22 Alkaline Phosphatase 100 Total Protein 7.0 Albumin 4.1 Lipase 23 Urine Color Urine Appearance Urine pH Ur Specific [place] Urine Protein Urine Glucose (UA) Urine Ketones Urine Blood Urine Nitrite Ur Leukocyte Esterase Urine RBC Urine WBC Ur Squamous Epith Cells Urine Bacteria Urine Mucus COVID-19 (JUN) COVID-19 Clin Com 02/20/22 02/20/22 02/20/22 15:57 15:57 18:40 MCV MCH MCHC RDW Plt Count MPV Immature Gran % (Auto) Neut % (Auto) Lymph % (Auto) Fleming % (Auto) Eos % (Auto) Baso % (Auto) Lymph # (Auto) Fleming # (Auto) Eos # (Auto) Baso # (Auto) Abs Immat Gran (auto) Absolute Neuts (auto) Absolute Nucleated RBC Nucleated RBC % (auto) PT 12.8 INR 1.1 D-Dimer High Sensitivty Anion Gap Estim Creat Clear Calc Estimated GFR Random Glucose Calcium Total Bilirubin Direct Bilirubin AST ALT Alkaline Phosphatase Total Protein Albumin Lipase Urine Color STRAW Urine Appearance CLEAR Urine pH 6.5 Ur Specific [place] 1.010 Urine Protein NEG Urine Glucose (UA) NEG Urine Ketones NEG Urine Blood 1+ H Urine Nitrite NEG Ur Leukocyte Esterase NEG Urine RBC 5-9 H Urine WBC 0-2 Ur Squamous Epith Cells TRACE Urine Bacteria NONE Urine Mucus TRACE COVID-19 (JUN) Negative COVID-19 Clin Com See Note 02/21/22 02/21/22 09:59 09:59 MCV 95.0 MCH 29.5 MCHC 31.1 RDW 14.6 Plt Count 235 D MPV 10.7 Immature Gran % (Auto) Neut % (Auto) Lymph % (Auto) [place] % (Auto) Eos % (Auto) Baso % (Auto) Lymph # (Auto) [place] # (Auto) Eos # (Auto) Baso # (Auto) Abs Immat Gran (auto) Absolute Neuts (auto) Absolute Nucleated RBC 0.000 Nucleated RBC % (auto) 0.0 PT INR D-Dimer High Sensitivty Anion Gap 13 Estim Creat Clear Calc 98.9 Estimated GFR > 60 Random Glucose 89 Calcium 9.4 Total Bilirubin 0.9 Direct Bilirubin 0.3 AST 17 ALT 21 Alkaline Phosphatase 103 Total Protein 7.1 Albumin 4.0 Lipase 18 Urine Color Urine Appearance Urine pH Ur Specific [place] Urine Protein Urine Glucose (UA) Urine Ketones Urine Blood Urine Nitrite Ur Leukocyte Esterase Urine RBC Urine WBC Ur Squamous Epith Cells Urine Bacteria Urine Mucus COVID-19 (JUN) COVID-19 Clin Com Assessment and Plan (1) Abdominal pain: Status: Acute (2) Intractable nausea and vomiting: Status: Acute Plan 51 y/o F with PMH significant for hypertension, hypercholesteremia, current heavy smoker, family hx of MT. 1. chest pain Troponin x2 neg ED physician discussed the case with Cardiology-recommended to admit for further workup including nuclear stress test, continue aspirin, beta-tavares, lipid panel added. cardiology eval-added echo-further workup based on above. 2. HTN:? Hold amlodipine, started on metoprolol. 3. Asthma:? Seems stable, continue home medications 4.Migrane:? Continue Fioricet. 5. depression/anxiety:? Continue home medications. 6. Heavy smoker:? nicotine patch 7. Obesity:? Encouraged for weight loss , consider out patient bariatric appointment. 8.Intarctable nausea /vomiting ,also abdpain: lft's and lipase normal CT seems similar as 2016. added ppi,zofran iv ,iv morphine , abd u/s, urine drug screen, Gi eval DVT prophylaxis:? SubQ Lovenox patient needs impatient: intractable nausea vomiting abd pain , not to able to tolerate po, also cardiac workup depending on echo Quality Stroke Does the patient have a stroke diagnosis?: No VTE Prior VTE?: No VTE Risk Level:: Medical - moderate - high VTE Device Contraindication: N/A - Device Ordered VTE Drug Contraindication: N/A - Med Ordered
[2022-02-21] MEDS: traMADoL HCL 50 MG TABLET PO (13:17)
[2022-02-21 14:19] VITALS: BP 112/68; PULSE 96; RESP 20; TEMP 36.9; O2SAT 98
[2022-02-21] MEDS: Pantoprazole Sodium 40 MG/10 ML VIAL IVPUSH (14:33)
[2022-02-21] MEDS: 0.9 % Sodium Chloride Flush 3 ML SYRINGE IVFLUSH ×2 (15:37→21:25)
[2022-02-21 16:57] VITALS: BP 101/60; PULSE 84; RESP 16; TEMP 36.8; O2SAT 95
--- NOTE | 2022-02-21 18:06 | PC.NURSE ---
amb (i) gait steady to br, pt stated large loose bm x 1.refuse stool softer at this time
--- NOTE | 2022-02-21 18:27 | P.CNGI_ITS ---
History of Present Illness Data of Consult Service Date: 02/21/22 Requesting physician: Mikaela Davis Primary Care Provider: Charisse Grimm MD HPI Reason for consult: chest pain, nausea, vomiting 51 y/o F with PMH significant for hypertension, hypercholesteremia, tobacco use , fibromyalgia, asthma, environmental allergies, Bipolar 1 disorder, depression, anxiety and persistent insomia who I am asked to see for assessment for nausea and vomiting. She had few days of worsening mid chest pain 10/10 in severity which is sharp and radiating into the right chest, felt worse whn standing and cleaning, not realated to food. she felt sob on exertion but denies cough, sputum, wheezing, or fever. She also has epigastric pain, and lower back pain radiating into her both legs with some weakness but is able to stand and walk. she can control bladder but has significant constipation for several days. Patient had pos stress test as o/p just recently but this admission neg EKG and neg trops with nml ECHO. CXR was nml, and d-dimer was neg. US and CT scan unremarkable, labs with nml HGb and LFT> She has EGD 2010 with gastritis, pos for H pylori, unclear if this was treated or not. Review of Systems Review of Systems: Constitutional : No Weight loss, No Fever, No Chills ENT/Mouth : No sore throat, No Rhinorrhea Eyes: No Swelling, No Redness Cardiovascular : see above Respiratory : No Cough, No Sputum, No Wheezing Gastrointestinal : see HPI Genitourinary : NO Dysuria, No Urinary Frequency, No Hematuria, No Urgency Musculoskeletal : No joint pain, No Myalgias, No Joint Swelling Skin : No Skin Lesions, No rash Neuro : No Weakness, No Numbness, No Dizziness, No Headache Psych : No Anxiety/Panic, No Depression Heme/Lymph: No Bruising, No Lymphadenopathy Endocrine : No Polyuria, No Polydipsia All other systems reviewed and are negative. [facility] Past Medical History Medical History Allergic rhinitis Asthma Bipolar 1 disorder Fibromyalgia Generalized anxiety disorder GERD (gastroesophageal reflux disease) Hypercholesteremia Hypertension Family History Family History Mother Depression Hypertension Bone cancer Anxiety Mental health disorder Father Diabetes Surgical History Surgical History History of appendectomy History of back surgery History of tubal ligation Social History Social History Housing: Apartment Alcohol intake: former Patient Tobacco Use Status: Current everyday Tobacco user Tobacco use type: Cigarette Cigarette Packs Per Day: 1 Cigarettes Per Day: 10 Smoked in Last 30 Days: Yes e-Cigarette/Vaping Use: Never Used Second Hand Smoke Exposure: Yes Use of substances other than those prescribed or required for medical reasons: No Advance Directives: No Advance Directives Information Provided: No service: No Current occupational status: disabled Cognitive needs: No Hearing needs: No Vision needs: Yes (Glasses) Meds Allergies Allergy/AdvReac Type Severity Reaction Status Date / Time No Known Allergies Allergy Verified 02/11/22 09:03 [No Known Allergies*] Active Medications: Current Medications Albuterol Sulfate (Albuterol Sulfate (0.083%) 2.5 Mg/3 Ml Vial.Fatuma) 2.5 mg INHALE Q4H PRN PRN Reason: bronchospasm Albuterol Sulfate (Albuterol Sulfate 90 Mcg 8 Gm Inhaler) 1 puff INHALE Q4H PRN PRN Reason: bronchospasm Aspirin (Aspirin Enteric Coated 81 Mg Tablet.) 81 mg PO DAILY [facility] Last Admin: 02/21/22 10:56 Dose: 81 mg Documented by: Atorvastatin Calcium (Atorvastatin Calcium 40 Mg Tablet) 40 mg PO DAILY [facility] Last Admin: 02/21/22 10:56 Dose: 40 mg Documented by: Divalproex Sodium (Divalproex Sodium 250 Mg Tablet.) 250 mg PO BID [facility] Last Admin: 02/21/22 10:56 Dose: 250 mg Documented by: Docusate Sodium (Docusate Sodium 100 Mg Capsule) 100 mg PO BID [facility] Duloxetine HCl (Duloxetine Hcl 30 Mg Capsule.) 30 mg PO DAILY [facility] Last Admin: 02/21/22 10:55 Dose: 30 mg Documented by: Enoxaparin Sodium (Enoxaparin Sodium 40 Mg/0.4 Ml Syringe) 40 mg SUBCUT Q24H [facility] Last Admin: 02/20/22 20:22 Dose: 40 mg Documented by: Fluticasone Propionate (Fluticasone Propionate 100 Mcg Blst.W.Dev) 1 puff INHALE RBID [facility] Last Admin: 02/21/22 09:06 Dose: 1 puff Documented by: Gabapentin (Gabapentin 300 Mg Capsule) 300 mg PO DAILY [facility] Last Admin: 02/21/22 10:56 Dose: 300 mg Documented by: Gabapentin (Gabapentin 600 Mg Tablet) 600 mg PO BEDTIME [facility] Last Admin: 02/20/22 20:22 Dose: 600 mg Documented by: Hydroxyzine HCl (Hydroxyzine Hcl 50 Mg Tablet) 50 mg PO BID [facility] Last Admin: 02/21/22 10:56 Dose: 50 mg Documented by: Lactated Ringer's (Lr) 1,000 mls @ 100 mls/hr IVCONT .Q10H [facility] Last Admin: 02/21/22 11:22 Dose: 100 mls/hr Documented by: Metoprolol Tartrate (Metoprolol Tartrate 12.5 Mg Halftab) 12.5 mg PO BID [facility]; Protocol Last Admin: 02/21/22 10:55 Dose: 12.5 mg Documented by: Montelukast Sodium (Montelukast Sodium 10 Mg Tablet) 10 mg PO BEDTIME [facility] Last Admin: 02/20/22 20:21 Dose: 10 mg Documented by: Morphine Sulfate (Morphine Sulfate 2 Mg/Ml Cartridge) 1 mg IVPUSH Q4H PRN; Protocol PRN Reason: Pain, Mild (Pain Scale 1-3) Nicotine (Nicotine 21 Mg Patch.Td24) 21 mg TRANSDERMA DAILY [facility] Last Admin: 02/21/22 10:56 Dose: 21 mg Documented by: Omeprazole (Omeprazole 20 Mg Capsule.) 20 mg PO DAILY@629 [facility] Last Admin: 02/21/22 08:42 Dose: Not Given Documented by: Ondansetron HCl (Ondansetron Hcl 4 Mg/2 Ml Vial) 4 mg IVPUSH Q6H PRN PRN Reason: Nasal Congestion Pantoprazole Sodium (Pantoprazole Sodium 40 Mg/10 Ml Vial) 40 mg IVPUSH DAILY@0630 [facility] Last Admin: 02/21/22 14:33 Dose: 40 mg Documented by: Pharmacy Consult (Consult Rx Perform Med Rec) 1 each MISCELLANE ONCE PRN PRN Reason: Consult order Polyethylene Glycol (Polyethylene Glycol 3350 17 Gm Powd.Pack) 17 gm PO DAILY [facility] Last Admin: 02/21/22 10:58 Dose: 17 gm Documented by: Quetiapine Fumarate (Quetiapine Fumarate 50 Mg Tablet) 50 mg PO DAILY [facility] Last Admin: 02/21/22 10:56 Dose: 50 mg Documented by: Senna (Sennosides 8.6 Mg Tablet) 8.6 mg PO BID PRN PRN Reason: constipation Sodium Chloride (0.9 % Sodium Chloride Flush 3 Ml Syringe) 3 ml IVFLUSH QSHIFT [facility] Last Admin: 02/21/22 15:37 Dose: 3 ml Documented by: Sucralfate (Sucralfate 1 Gm Tablet) 1 gm PO BIDAC [facility] Tramadol HCl (Tramadol Hcl 50 Mg Tablet) 50 mg PO DAILY PRN PRN Reason: Pain (Scale Score 4-6) Last Admin: 02/21/22 13:17 Dose: 50 mg Documented by: Vitamin D (Cholecalciferol (Vitamin D3) 25 Mcg Tablet) 125 mcg PO DAILY [facility] Last Admin: 02/21/22 10:57 Dose: Not Given Documented by: Zolpidem Tartrate (Zolpidem Tartrate 5 Mg Tablet) 10 mg PO BEDTIME PRN PRN Reason: insomnia Home Medications Medication Instructions Recorded Confirmed Last Taken Type hydroxyzine pamoate 50 mg capsule 50 mg PO BID 02/20/22 02/20/22 Unknown History montelukast 10 mg tablet 10 mg PO BEDTIME 02/20/22 02/20/22 Unknown History tramadol 50 mg tablet 50 mg PO DAILY PRN 02/20/22 02/20/22 Unknown History Physical Exam Vital Signs: Vital Signs: Last Vital Signs Temp 98.3 F 02/21/22 16:57 Pulse 84 02/21/22 16:57 Resp 16 02/21/22 16:57 BP 101/60 02/21/22 16:57 Pulse Ox 95 02/21/22 16:57 BMI result Body Mass Index 34.0 EXAM: GENERAL: The patient is well developed and nontoxic. VITAL SIGNS:see workflow HEENT: Nonicteric sclerae, PERRLA, EOMI. Oropharynx clear. Moist mucous membranes. Conjunctivae appear well perfused. No thyroid mass. CHEST: Chest wall is nontender. HEART: Regular rate and rhythm without murmurs. LUNGS: Clear to auscultation bilaterally. ABDOMEN: Soft, positive bowel sounds, tender, epigastrium and chest wall no organomegaly.no flank tenderness SKIN: No rash, no excessive bruising, petechiae, or purpura. NEUROLOGIC: Cranial nerves II-XII intact without motor/sensory deficit. MS_ tender lower back, able to move herself in bed and turn psych--nml affect Results Labs CBC & Chem 7: 02/21/22 09:59 02/21/22 09:59 Labs: Short CBC 02/21/22 Range/Units 09:59 WBC 9.9 (4.8-10.8) X10*3/uL Hgb 13.7 (12.0-16.0) g/dl Hct 44.1 (37.0-47.0) % Plt Count 235 D (160-400) X10*3/uL BMP 02/21/22 09:59 Sodium 140 Potassium 4.5 Chloride 106 Carbon Dioxide 26 BUN 24 H Creatinine 0.73 Calcium 9.4 Liver Function 02/21/22 Range/Units 09:59 Total Bilirubin 0.9 (0.0-1.0) mg/dL Direct Bilirubin 0.3 (0.0-0.5) mg/dL AST 17 (5-31) U/L ALT 21 (0-31) U/L Alkaline Phosphatase 103 (39-117) U/L Albumin 4.0 (3.5-5.0) g/dL Urine 02/20/22 Range/Units 18:40 Urine Color STRAW Urine Appearance CLEAR Urine pH 6.5 (5.0-8.0) Ur Specific [place] 1.010 (1.005-1.025) Urine Protein NEG (NEG-TRACE) MG/DL Urine Glucose (UA) NEG (NEG) MG/DL ECG Attestation: I personally reviewed and interpreted this ECG as follows: (stress test with inf lead depressions during [place] protocol) Assessment and Plan (1) Intractable nausea and vomiting: Status: Acute (2) Precordial chest pain: Status: Acute (3) Abdominal pain: Status: Acute Plan 1/ Nausea and vomiting with chest pain and epigastric pain ddx; could still be cardiac etiology even though ECG and trop neg she has an impressive pos stress test. D -dimer neg makes PTE unlikely, no evidenc eof pericarditis on ECG. US neg for gallstones, nml LFT> Could be costochondritis or viral gastoenteritis. 2/ Constipation, maybe contributing to above PLAN: 1/ KUB 2/ miralax bid with colace and dulcolax 3/ PPI BID, scheduled PPI 4/ If sx persist then EGD 5/ o/p colonoscopy. Procedures Date of Service Date of Service: 02/21/22
[2022-02-21] MEDS: Sucralfate 1 GM TABLET PO (19:21)
[2022-02-21 20:53] VITALS: BMI 35.5
[2022-02-21 21:17] VITALS: BP 103/62; PULSE 74; RESP 18; TEMP 36.1; O2SAT 97
[2022-02-21] MEDS: Enoxaparin Sodium 40 MG/0.4 ML SYRINGE SUBCUT (21:24)
[2022-02-21] MEDS: Morphine Sulfate 2 MG/ML CARTRIDGE 1 MG IVPUSH (21:25)
[2022-02-21] MEDS: Gabapentin 600 MG TABLET PO (21:28)
[2022-02-21] MEDS: Docusate Sodium 100 MG CAPSULE PO (21:28)
[2022-02-21] MEDS: Montelukast Sodium 10 MG TABLET PO (21:29)
[2022-02-21 21:42] LABS: Amphetamine Screen Urine Not Detected (Not Detect); Barbiturates, Urine Not Detected (Not Detect); Benzodiazepines Screen Urine Not Detected (Not Detect); Cannabinoid Screen Urine Not Detected (Not Detect); Cocaine Screen Urine Not Detected (Not Detect); Fentanyl, urine Not Detected (Not Detect); Opiate Screen Urine POSITIVE (Not Detect); Phencyclidine Screen Urine Not Detected (Not Detect)
[2022-02-21 23:04] VITALS: BP 108/60; PULSE 68; RESP 18; TEMP 36.6; O2SAT 98
[2022-02-22 04:00] VITALS: BP 117/58; PULSE 68; RESP 20; TEMP 36.6; O2SAT 97
[2022-02-22] MEDS: Morphine Sulfate 2 MG/ML CARTRIDGE 1 MG IVPUSH (04:20)
[2022-02-22] MEDS: Pantoprazole Sodium 40 MG/10 ML VIAL IVPUSH (06:05)
[2022-02-22] MEDS: Sucralfate 1 GM TABLET PO (06:05)
[2022-02-22] MEDS: Lactated Ringers 1,000 ML 100 ML IVCONT (06:06)
[2022-02-22 06:48] LABS: Hematocrit 36.2 % (37.0-47.0); Hemoglobin 11.5 g/dl (12.0-16.0); Mean Corpuscular HGB Conc 31.8 g/dl (31.0-35.0); Mean Corpuscular Hemoglobin 29.3 pg (27.0-33.0); Mean Corpuscular Volume 92.3 fL (80.0-98.0); Mean Platelet Volume 10.3 fL (9.4-12.3); Platelet Count 281 X10*3/uL (160-400); Red Blood Count 3.92 X10*6/uL (4.20-5.50); Red Cell Distribution Width 14.4 % (11.0-16.0); White Blood Count 5.2 X10*3/uL (4.8-10.8)
[2022-02-22 06:57] LABS: Anion Gap 9 (12-20); Blood Urea Nitrogen 15 mg/dL (9-16); Calcium 9.1 mg/dL (8.4-10.2); Carbon Dioxide 27 mmol/L (22-29); Chloride 107 mmol/L (96-108); Creatinine Clr Calc Pharmacy 108.7; Estimated Glomerular Filt Rate > 60; Glucose Random 83 mg/dL (60-115); Sodium 139 mmol/L (135-145)
[2022-02-22 07:15] VITALS: BP 103/54; PULSE 69; RESP 18; TEMP 36.6; O2SAT 97
[2022-02-22] MEDS: Fluticasone Propionate 100 MCG BLST.W.DEV 1 PUFF INHALE (08:05)
[2022-02-22 08:07] VITALS: PULSE 72; RESP 20; O2SAT 96
[2022-02-22] MEDS: Docusate Sodium 100 MG CAPSULE PO (08:20)
[2022-02-22] MEDS: Metoprolol Tartrate 12.5 MG HALFTAB PO (08:20)
[2022-02-22] MEDS: Gabapentin 300 MG CAPSULE PO (08:21)
[2022-02-22] MEDS: hydrOXYzine HCL 50 MG TABLET PO (08:21)
[2022-02-22] MEDS: DULoxetine HCl 30 MG CAPSULE.DR PO (08:22)
[2022-02-22] MEDS: Aspirin Enteric Coated 81 MG TABLET.DR PO (08:22)
[2022-02-22] MEDS: Atorvastatin Calcium 40 MG TABLET PO (08:22)
[2022-02-22] MEDS: 0.9 % Sodium Chloride Flush 3 ML SYRINGE IVFLUSH (08:26)
--- NOTE | 2022-02-22 08:52 | PM.DS ---
DS: Providers Provider Date of Service: 02/22/22 Date of admission: 02/20/22 17:41 Primary care physician: Charisse Grimm MD Consults: 02/20/22 18:23 Consult to Cardiology Routine [place]ing [place] [facility] Reason for consultation: chest pain 02/21/22 12:57 Consult to Gastroenterology Routine Consulting Provider[place] [facility] Reason for consultation: epigastric/right sided abd pain unclera etiology Has provider been notified: No DS: Diagnosis Discharge Diagnosis (1) Intractable nausea and vomiting: Status: Acute (2) Precordial chest pain: Status: Acute (3) Abdominal pain: Status: Acute DS: Summary Hospital Course Hospital Course: Chief Complaint: chest pain 51 y/o F with PMH significant for hypertension, hypercholesteremia, current heavy smoker , fibromyalgia, asthma, environmental allergies, Bipolar 1 disorder, depression, anxiety and persistent insomia?:? Came to the hospital complaining of chest pain ,she said-she has on and off chest pain for couple months-but yesterday and today her chest pain was getting worse.? Chest pain is sharp/pressure type, left upper pectoral area radiating to the lower left side, reproducible, exertional, also complaining of some shortness of breath with chest pain.? She says her son has terminal cancer-she had some stressful situation also since yesterday and was crying the whole day and having chest pain as well as her blood pressure was also elevated yesterday as per the patient. ?Had excercise stress test 02/11 in which patient had chest pain, EKG changes (inferiorly during activity, laterally V4-V6). Plans to obtain nuclear stress and patient see cards outpatient.? Patient tells me she has scheduled appointment with Cardiology in February. ED physician given aspirin and morphine and patient chest pain seems to be improved significantly. Troponin x1 negative, another set of troponin ordered. EKG on admission seems to be fine no ST changes Hospital course: She presented with chest pain, atypical in pattern and negative work up including Time Spent with Patient Time attestation: Total time spent providing and/or coordinating discharge services: Discharge coordination time: Greater than 30 minutes Quality: Stroke Does the patient have a stroke diagnosis?: No Physical Exam Vital Signs: Vital Signs: Last Vital Signs Temp 97.8 F 02/22/22 07:15 Pulse 72 02/22/22 08:07 Resp 20 02/22/22 08:07 BP 103/54 L 02/22/22 07:15 Pulse Ox 97 02/22/22 07:15 BMI result Body Mass Index 35.5 DS: Data Data Completed and Pending Labs on day of discharge: Laboratory Results - last 24 hr 02/21/22 02/21/22 02/21/22 09:59 09:59 21:00 WBC 9.9 RBC 4.64 Hgb 13.7 Hct 44.1 MCV 95.0 MCH 29.5 MCHC 31.1 RDW 14.6 Plt Count 235 D MPV 10.7 Absolute Nucleated RBC 0.000 Nucleated RBC % (auto) 0.0 Sodium 140 Potassium 4.5 Chloride 106 Carbon Dioxide 26 Anion Gap 13 BUN 24 H Creatinine 0.73 Estim Creat Clear Calc 98.9 Estimated GFR > 60 Random Glucose 89 Calcium 9.4 Total Bilirubin 0.9 Direct Bilirubin 0.3 AST 17 ALT 21 Alkaline Phosphatase 103 Total Protein 7.1 Albumin 4.0 Lipase 18 Urine Opiates Screen POSITIVE H Urine Fentanyl Screen Not Detected Ur Barbiturates Screen Not Detected Ur Phencyclidine Scrn Not Detected Ur Amphetamines Screen Not Detected U Benzodiazepines Scrn Not Detected Urine Cocaine Screen Not Detected U Marijuana (THC) Screen Not Detected 02/22/22 02/22/22 06:11 06:11 WBC 5.2 RBC 3.92 L Hgb 11.5 L Hct 36.2 L MCV 92.3 MCH 29.3 MCHC 31.8 RDW 14.4 Plt Count 281 MPV 10.3 Absolute Nucleated RBC 0.000 Nucleated RBC % (auto) 0.0 Sodium 139 Potassium 4.0 Chloride 107 Carbon Dioxide 27 Anion Gap 9 L BUN 15 Creatinine 0.68 Estim Creat Clear Calc 108.7 Estimated GFR > 60 Random Glucose 83 Calcium 9.1 Total Bilirubin Direct Bilirubin AST ALT Alkaline Phosphatase Total Protein Albumin Lipase Urine Opiates Screen Urine Fentanyl Screen Ur Barbiturates Screen Ur Phencyclidine Scrn Ur Amphetamines Screen U Benzodiazepines Scrn Urine Cocaine Screen U Marijuana (THC) Screen Discharge Plan Discharge Anticipated Discharge Date/Time: 02/22/22 08:50 Patient Disposition: Home, Self-Care Discharge Diagnosis: Chest pain, abdominal pain Referrals: Charisse Whitt MD [Primary Care Provider] - 1 Week Discharge Medications: New omeprazole magnesium [Prilosec OTC] 20 mg tablet,delayed release (DR/EC) 20 mg PO DAILY Qty: 30 0RF Continued pantoprazole 20 mg tablet,delayed release (DR/EC) 20 mg PO DAILY Qty: 60 0RF Rx Instructions: patient is not tolerating Omeprazole, atorvastatin 40 mg tablet 40 mg PO DAILY Qty: 30 0RF duloxetine 30 mg capsule,delayed release(DR/EC) 30 mg PO DAILY Qty: 30 0RF zolpidem [Ambien] 10 mg tablet 10 mg PO BEDTIME PRN (Reason: insomnia) Qty: 30 0RF hydroxyzine pamoate 50 mg capsule 50 mg PO BID 0RF tramadol 50 mg tablet 50 mg PO DAILY PRN (Reason: Pain (Scale Score 4-6)) 0RF montelukast 10 mg tablet 10 mg PO BEDTIME 0RF albuterol sulfate 90 mcg/actuation HFA aerosol inhaler 1 inh inhalation Q4H PRN (Reason: bronchospasm) Qty: 8.5 0RF albuterol sulfate 2.5 mg /3 mL (0.083 %) solution for nebulization 2.5 mg inhalation Q4-6H PRN (Reason: bronchospasm) Qty: 15 0RF gabapentin 300 mg capsule 300 mg PO DAILY Qty: 30 1RF gabapentin 600 mg tablet 600 mg PO BEDTIME 30 Days Qty: 30 1RF Rx Instructions: Take gabapentin 600 mg at bedtime. Continue taking gabapentin 300 mg in the morning (DME) nebulizers Misc See Rx Instructions .Route Qty: 1 0RF Rx Instructions: As directed 1 inhalation bid prn bronchospasms quetiapine [Seroquel] 50 mg tablet 50 mg PO DAILY Qty: 30 0RF amlodipine 5 mg tablet 5 mg PO DAILY Qty: 20 0RF divalproex [Depakote] 250 mg tablet,delayed release (DR/EC) 250 mg PO BID Qty: 30 1RF Flovent HFA 110 mcg/actuation HFA aerosol inhaler 1 puff inhalation BID Qty: 12 0RF cholecalciferol (vitamin D3) 125 mcg (5,000 unit) capsule 125 mcg PO DAILY Qty: 30 1RF (DME) Blood Pressure Cuff Misc See Rx Instructions .Route Qty: 1 0RF Rx Instructions: As directed, electronic bp cuff, take bp twice a day (DME) Altera Nebulizer System Misc See Rx Instructions .Route Qty: 1 0RF Rx Instructions: As directed, 1 inhalation bid polyethylene glycol 3350 [Miralax] 17 gram powder in packet 17 g PO DAILY Qty: 100 0RF ukfkykcsmu-vickeorbtkmde-poxk 50-325-40 mg capsule 1 cap PO Q4-6H PRN (Reason: pain) Qty: 14 0RF sennosides [Senokot] 8.6 mg tablet 8.6 mg PO BID PRN (Reason: constipation) Qty: 30 0RF No Action polyethylene glycol 3350 17 gram/dose powder 17 g PO DAILY Qty: 238 0RF Discharge Orders: Discharge Order (Routine); Ordered 02/22/22 Ordered By: John Lu Diet: advance to usual diet Activity on Discharge: As tolerated Stand Alone Forms: Patient Portal Discharge page Care Plan Goals: full work of chest pain Health Concerns: chest pain, Plan of Treatment: follow up with heart doctor for stress test, follow up with Dr. Chowdary for EGD and colonoscopy Assessment: as above Discharge Date/Time: 02/22/22 14:00
[2022-02-22] MEDS: Nicotine 21 MG PATCH.TD24 TRANSDERMA (09:13)
[2022-02-22] MEDS: polyethylene glycoL 3350 17 GM POWD.PACK PO (09:16)
--- NOTE | 2022-02-22 10:17 | PM.PNCARD ---
Subjective Subjective Date of Service: 02/22/22 Interval history: She still has aches and pains in multiple areas including chest, epigastrium, below the right ribs. Does not clearly sound like angina at all. Review of Systems Review of Systems Yes all other systems are reviewed and are negative Constitutional: Reports as per HPI Eyes: Reports as per HPI Reports as per HPI Cardiovascular: Reports as per HPI, Denies acrocyanosis, Denies cool extremities, Reports chest pain, Denies leg edema, Denies lightheadedness, Denies palpitations and Denies dyspnea Respiratory: Reports as per HPI, Reports no additional respiratory complaints and Denies dyspnea Gastrointestinal: Reports as per HPI, Reports no additional gastrointestinal complaints, Reports abdominal pain, Reports nausea and Reports vomiting Genitourinary: Reports as per HPI Musculoskeletal: Reports no additional musculoskeletal complaints and Reports as per HPI Skin/Breast: Reports system reviewed and no additional complaints, except as docu Reports system reviewed and no additional complaints, except as documented and Reports as per HPI Psychiatric: Reports no additional psychiatric complaints and Reports as per HPI Endocrine: Reports no additional endocrine complaints, Reports as per HPI and Denies palpitations Hematologic/Lymphatic: Reports no additional hematologic/lymphatic complaints and Reports as per HPI Allergic/Immunologic: Reports no additional allergic/immunologic complaints and Reports as per HPI Physical Exam Vital Signs: Last Vital Signs Temp 97.8 F 02/22/22 07:15 Pulse 72 02/22/22 08:07 Resp 20 02/22/22 08:07 BP 103/54 L 02/22/22 07:15 Pulse Ox 97 02/22/22 07:15 BMI result Body Mass Index 35.5 Objective Labs and Meds Result diagrams: 02/22/22 06:11 02/22/22 06:11 Lab results: Laboratory Results - last 24 hr 02/21/22 02/21/22 02/21/22 09:59 09:59 21:00 WBC 9.9 RBC 4.64 Hgb 13.7 Hct 44.1 MCV 95.0 MCH 29.5 MCHC 31.1 RDW 14.6 Plt Count 235 D MPV 10.7 Absolute Nucleated RBC 0.000 Nucleated RBC % (auto) 0.0 Sodium 140 Potassium 4.5 Chloride 106 Carbon Dioxide 26 Anion Gap 13 BUN 24 H Creatinine 0.73 Estim Creat Clear Calc 98.9 Estimated GFR > 60 Random Glucose 89 Calcium 9.4 Total Bilirubin 0.9 Direct Bilirubin 0.3 AST 17 ALT 21 Alkaline Phosphatase 103 Total Protein 7.1 Albumin 4.0 Lipase 18 Urine Opiates Screen POSITIVE H Urine Fentanyl Screen Not Detected Ur Barbiturates Screen Not Detected Ur Phencyclidine Scrn Not Detected Ur Amphetamines Screen Not Detected U Benzodiazepines Scrn Not Detected Urine Cocaine Screen Not Detected U Marijuana (THC) Screen Not Detected 02/22/22 02/22/22 06:11 06:11 WBC 5.2 RBC 3.92 L Hgb 11.5 L Hct 36.2 L MCV 92.3 MCH 29.3 MCHC 31.8 RDW 14.4 Plt Count 281 MPV 10.3 Absolute Nucleated RBC 0.000 Nucleated RBC % (auto) 0.0 Sodium 139 Potassium 4.0 Chloride 107 Carbon Dioxide 27 Anion Gap 9 L BUN 15 Creatinine 0.68 Estim Creat Clear Calc 108.7 Estimated GFR > 60 Random Glucose 83 Calcium 9.1 Total Bilirubin Direct Bilirubin AST ALT Alkaline Phosphatase Total Protein Albumin Lipase Urine Opiates Screen Urine Fentanyl Screen Ur Barbiturates Screen Ur Phencyclidine Scrn Ur Amphetamines Screen U Benzodiazepines Scrn Urine Cocaine Screen U Marijuana (THC) Screen Imaging Radiologist's impression: Impressions Abdomen CT 02/21/22 11:32 IMPRESSION: No acute findings. Stable small liver lesion from [address] and therefore probably benign. Small right renal cyst. Fleischner guidelines were followed. Abdomen Ultrasound 02/21/22 14:50 IMPRESSION: Limited exam due to patient body habitus. The pancreas is not visualized. KUB X-Ray 02/22/22 08:36 IMPRESSION: Unremarkable examination. Progress Note: A&P Assessment and plan (1) Precordial chest pain: Status: Acute (2) Abdominal pain: Status: Acute (3) Intractable nausea and vomiting: Status: Acute Plan Symptoms are somewhat nonspecific with pains in multiple areas including chest pain, epigastric pain along with nausea vomiting. Multiple sets of high sensitivity troponins are within normal limits. EKG is not showing any clear ischemic changes. Echocardiogram with normal LVEF and no wall motion abnormalities. She had a recent stress test where she apparently had EKG changes as well as chest pain during the test. Hence there is a discordance between her presentation and findings and recent stress test as the symptoms are non anginal while the stress test itself was positive. However there is no evidence of ACS in the current situation. Hence we will plan on discharging her and then arrange a outpatient stress test with perfusion imaging in the next few days. Discussed about this with the patient as well as hospitalist. Fall Risk Details Current Medications: Current Medications Albuterol Sulfate (Albuterol Sulfate (0.083%) 2.5 Mg/3 Ml Vial.Fatuma) 2.5 mg INHALE Q4H PRN PRN Reason: bronchospasm Albuterol Sulfate (Albuterol Sulfate 90 Mcg 8 Gm Inhaler) 1 puff INHALE Q4H PRN PRN Reason: bronchospasm Aspirin (Aspirin Enteric Coated 81 Mg Tablet.) 81 mg PO DAILY [facility] Last Admin: 02/22/22 08:22 Dose: 81 mg Documented by: Atorvastatin Calcium (Atorvastatin Calcium 40 Mg Tablet) 40 mg PO DAILY [facility] Last Admin: 02/22/22 08:22 Dose: 40 mg Documented by: Divalproex Sodium (Divalproex Sodium 250 Mg Tablet.) 250 mg PO BID [facility] Last Admin: 02/22/22 08:23 Dose: Not Given Documented by: Docusate Sodium (Docusate Sodium 100 Mg Capsule) 100 mg PO BID [facility] Last Admin: 02/22/22 08:20 Dose: 100 mg Documented by: Duloxetine HCl (Duloxetine Hcl 30 Mg Capsule.) 30 mg PO DAILY [facility] Last Admin: 02/22/22 08:22 Dose: 30 mg Documented by: Enoxaparin Sodium (Enoxaparin Sodium 40 Mg/0.4 Ml Syringe) 40 mg SUBCUT Q24H [facility] Last Admin: 02/21/22 21:24 Dose: 40 mg Documented by: Fluticasone Propionate (Fluticasone Propionate 100 Mcg Blst.W.Dev) 1 puff INHALE RBID [facility] Last Admin: 02/22/22 08:05 Dose: 1 puff Documented by: Gabapentin (Gabapentin 300 Mg Capsule) 300 mg PO DAILY [facility] Last Admin: 02/22/22 08:21 Dose: 300 mg Documented by: Gabapentin (Gabapentin 600 Mg Tablet) 600 mg PO BEDTIME [facility] Last Admin: 02/21/22 21:28 Dose: 600 mg Documented by: Hydroxyzine HCl (Hydroxyzine Hcl 50 Mg Tablet) 50 mg PO BID [facility] Last Admin: 02/22/22 08:21 Dose: 50 mg Documented by: Lactated Ringer's (Lr) 1,000 mls @ 100 mls/hr IVCONT .Q10H [facility] Last Admin: 02/22/22 06:06 Dose: 100 mls/hr Documented by: Metoprolol Tartrate (Metoprolol Tartrate 12.5 Mg Halftab) 12.5 mg PO BID [facility]; Protocol Last Admin: 02/22/22 08:20 Dose: 12.5 mg Documented by: Montelukast Sodium (Montelukast Sodium 10 Mg Tablet) 10 mg PO BEDTIME [facility] Last Admin: 02/21/22 21:29 Dose: 10 mg Documented by: Morphine Sulfate (Morphine Sulfate 2 Mg/Ml Cartridge) 1 mg IVPUSH Q4H PRN; Protocol PRN Reason: Pain, Mild (Pain Scale 1-3) Last Admin: 02/22/22 04:20 Dose: 1 mg Documented by: Nicotine (Nicotine 21 Mg Patch.Td24) 21 mg TRANSDERMA DAILY [facility] Last Admin: 02/22/22 09:13 Dose: 21 mg Documented by: Omeprazole (Omeprazole 20 Mg Capsule.Dr) 20 mg PO DAILY@629 [facility] Last Admin: 02/21/22 08:42 Dose: Not Given Documented by: Ondansetron HCl (Ondansetron Hcl 4 Mg/2 Ml Vial) 4 mg IVPUSH Q6H PRN PRN Reason: Nasal Congestion Pantoprazole Sodium (Pantoprazole Sodium 40 Mg/10 Ml Vial) 40 mg IVPUSH DAILY@30 [facility] Last Admin: 02/22/22 06:05 Dose: 40 mg Documented by: Pharmacy Consult (Consult Rx Perform Med Rec) 1 each MISCELLANE ONCE PRN PRN Reason: Consult order Polyethylene Glycol (Polyethylene Glycol 3350 17 Gm Powd.Pack) 17 gm PO DAILY [facility] Last Admin: 02/22/22 09:16 Dose: 17 gm Documented by: Quetiapine Fumarate (Quetiapine Fumarate 50 Mg Tablet) 50 mg PO DAILY [facility] Last Admin: 02/22/22 09:17 Dose: Not Given Documented by: Senna (Sennosides 8.6 Mg Tablet) 8.6 mg PO BID PRN PRN Reason: constipation Sodium Chloride (0.9 % Sodium Chloride Flush 3 Ml Syringe) 3 ml IVFLUSH QSHIFT [facility] Last Admin: 02/22/22 08:26 Dose: 3 ml Documented by: Sucralfate (Sucralfate 1 Gm Tablet) 1 gm PO BIDAC [facility] Last Admin: 02/22/22 06:05 Dose: 1 gm Documented by: Tramadol HCl (Tramadol Hcl 50 Mg Tablet) 50 mg PO DAILY PRN PRN Reason: Pain (Scale Score 4-6) Last Admin: 02/21/22 13:17 Dose: 50 mg Documented by: Vitamin D (Cholecalciferol (Vitamin D3) 25 Mcg Tablet) 125 mcg PO DAILY [facility] Last Admin: 02/21/22 10:57 Dose: Not Given Documented by: Zolpidem Tartrate (Zolpidem Tartrate 5 Mg Tablet) 10 mg PO BEDTIME PRN PRN Reason: insomnia Time Spent With Patient Time: Total time spent is greater than 50% in coordination of care (as documented) at patient's floor/unit and/or counseling patient: Progress Note: Quality Stroke Does the patient have a stroke diagnosis?: No Procedures Date of Service Date of Service: 02/22/22
[2022-02-22 11:18] VITALS: BP 107/55; PULSE 67; RESP 20; TEMP 36.3; O2SAT 97
--- NOTE | 2022-02-22 11:18 | MHC.CM.PN ---
met with pt whp ois indepdent pt to go home no services
== END 2022-02-22 14:00 | disposition home or self-care (01) ==
LOC: HO.ED 17:14 → HO.EDOVER 22:53 → HO.IMC 02-21 19:05 → HO.EDOVER 02-21 19:09 → HO.IMC 02-21 19:11
PROVIDERS: Nurse Practitioner Family; Admitting Provider Internal Medicine; Emergency Provider Emergency Medicine; PCP Internal Medicine; Visit Provider Internal Medicine
DX: R07.2 Precordial pain (principal); R11.2 Nausea with vomiting, unspecified; R10.13 Epigastric pain; K59.00 Constipation, unspecified; K21.9 Gastro-esophageal reflux disease without esophagitis; I10 Essential (primary) hypertension; E78.00 Pure hypercholesterolemia, unspecified; E66.3 Overweight; M79.7 Fibromyalgia; N28.1 Cyst of kidney, acquired; J45.909 Unspecified asthma, uncomplicated; G47.09 Other insomnia; F31.9 Bipolar disorder, unspecified; F41.8 Other specified anxiety disorders; Z68.35 Body mass index [BMI] 35.0-35.9, adult; Z72.0 Tobacco use; Z20.822 Contact with and (suspected) exposure to COVID-19; Z79.82 Long term (current) use of aspirin; Z79.899 Other long term (current) drug therapy
CPT/HCPCS: 36415; 71046; 74018; 74160; 76705; 80048; 80076; 80307; 81001; 83690; 84484; 85025; 85027; 85379; 85610; 87635; 93005; 93306; 94640; 96361; 96372; 96374; 96375; 96376; 99205; 99214; 99219; 99285; J1650; J2270; J2405; Q9957; Q9967

== ENCOUNTER → 2022-02-24 07:35 | Outpatient (REF) | payer OTHER, SELFPAY ==
--- NOTE | ~2022-02-24 | NM_ITS ---
Lexiscan Myocardial perfusion study Indication: Chest pain, assess for coronary disease and ischemia Technique: The patient was brought in for a Lexiscan perfusion study on 02/24/2022 and was injected 0.4 mg of Lexiscan intravenously. Within a minute of this injection 32 mCi of sestamibi was given intravenously. Images were obtained using the SPECT gamma camera interlaced with the gating device. Images were obtained in supine position. Resting perfusion study was performed on 02/25/2022. Patient was administered 32 mCi of sestamibi intravenously at rest. Images were then obtained in supine position. Total DLP 130mGy-cm. Images were processed with the software and compared side to side in short axis, horizontal long axis and vertical long axis views. Findings: Raw acquisition was reviewed. The stress perfusion study showed no significant perfusion abnormality. Both uncorrected as well as CT attenuation corrected images were reviewed. The gated study shows normal LV systolic function with calculated LVEF of 66%. LV cavity is normal in size. The gated study shows normal wall thickening and contraction of segments. Resting study shows no significant perfusion abnormality. Gating at rest reveals normal wall motion with ejection fraction at 53%. The findings are consistent with no reversible or fixed perfusion abnormality. NM/NM cardiolite stress test Impression: 1. Myocardial perfusion imaging study shows normal myocardial perfusion. 2. Gated LVEF is 66% during stress and 53% during rest. 3. Transient ischemic dilatation not present. EKG component of the test reported separately.
--- NOTE | 2022-02-24 07:38 | CA_ITS ---
Acquisition Time: 2022-02-24 08:43:54 Total Exercise Time: 00:02:00 Test Indications: CP Medications: SEE DISCHARGE SUMMARY Protocol: LEXISCAN Max HR: 137 BPM 81% of Pred: 169 BPM Max BP: 130/080 mmHG Max Work Load: 1.0 METS Pharmacological stress test with Lexiscan injection, while sitting and kicking her legs, with 3-4/10 left chest discomfort at baseline which resolved after injection however she then reported a mid chest heaviness, without arrythmia, with normotensive response to injection, with nondiagnostic EKG for ischemia. In recovery she was treated with Aminophylline 75mg IVP to reverse lexiscan with resolution of chest heaviness. Nuclear images pending. Test reviewed with Dr Weston. Referred By: Clinton Weston Overread By: ESTHELA MALLORY
== END ==
LOC: HO.CARD 07:35
PROVIDERS: Visit Provider Internal Medicine
DX: R07.2 Precordial pain (principal)
CPT/HCPCS: 78452; 93017; A9500; J0280; J2785

== ENCOUNTER → 2022-03-08 13:33 | Outpatient (BNVA) | payer OTHER, SELFPAY | PROVIDERS: PCP Nurse Practitioner Acute Care; Visit Provider Orthopaedic Surgery | DX: M25.532 Pain in left wrist (principal); M67.432 Ganglion, left wrist; R20.0 Anesthesia of skin; R20.2 Paresthesia of skin | CPT/HCPCS: 99202 ==

== ENCOUNTER 2022-03-21 08:19 | Outpatient (REF) | payer OTHER, SELFPAY ==
[2022-03-21 11:08] LABS: MANUAL DIFF FLAG NO
[2022-03-21 11:54] LABS: Basophils Absolute Auto 0.1 X10*3/uL (0.0-0.2); Basophils Percent Auto 1.1 % (0-2); Eosinophils Absolute Auto 0.2 X10*3/uL (0.0-0.4); Eosinophils Percent Auto 2.7 % (0-4); Hematocrit 38.9 % (37.0-47.0); Hemoglobin 12.2 g/dl (12.0-16.0); Imm Gran Abs Auto 0.02 X10*3/uL (0.00-0.03); Imm Gran Pct Auto 0.2 % (0.0-0.4); Lymphocytes Absolute Auto 3.1 X10*3/uL (1.2-4.9); Lymphocytes Percent Auto 34.4 % (20-40); Mean Corpuscular HGB Conc 31.4 g/dl (31.0-35.0); Mean Corpuscular Hemoglobin 28.8 pg (27.0-33.0); Mean Corpuscular Volume 91.7 fL (80.0-98.0); Mean Platelet Volume 10.8 fL (9.4-12.3); Monocytes Absolute Auto 0.5 X10*3/uL (0.1-1.2); Neutrophils Percent Auto 55.6 % (45-73); Platelet Count 356 X10*3/uL (160-400); Red Blood Count 4.24 X10*6/uL (4.20-5.50); Red Cell Distribution Width 14.7 % (11.0-16.0)
[2022-03-21 12:22] LABS: C Reactive Protein 0.44 mg/dL (< or = 0.50); Iron 96 mcg/dL (30-160); Percent Iron Saturation 31 % (15-50); Total Iron Binding Capacity 306 mcg/dL (228-428); Unsaturated Iron Binding 210 ug/dL
[2022-03-21 12:39] LABS: Amphetamine Screen Urine Not Detected (Not Detect)
[2022-03-21 13:35] LABS: Erythrocyte Sedimentation Rate 19 MM/HR (0-20)
== END 2022-03-21 08:20 | disposition home or self-care (01) ==
LOC: HO.LAB 08:19
PROVIDERS: Nurse Practitioner Acute Care; PCP Internal Medicine; Visit Provider Internal Medicine Rheumatology
DX: M79.7 Fibromyalgia (principal); F41.9 Anxiety disorder, unspecified; D64.9 Anemia, unspecified; R07.89 Other chest pain; M19.041 Primary osteoarthritis, right hand; M19.042 Primary osteoarthritis, left hand; M70.61 Trochanteric bursitis, right hip; M70.62 Trochanteric bursitis, left hip
CPT/HCPCS: 36415; 80307; 83540; 85025; 85652; 86140; 99202

== ENCOUNTER 2022-03-28 09:35 | Outpatient (REF) | payer OTHER, SELFPAY ==
[2022-03-28 16:06] LABS: CT PCR NOT DETECTED (Not Detect.); NG PCR NOT DETECTED (Not Detect.)
[2022-03-29 10:50] LABS: BV Int Neg Control Negative (Negative); BV Int Pos Control Positive (Positive)
[2022-03-31 11:56] LABS: HPV mRNA E6/E7 rflx Not Detected (Not Detected)
== END 2022-03-28 09:36 | disposition home or self-care (01) ==
LOC: HO.LAB 09:35
PROVIDERS: PCP Internal Medicine; Visit Provider Advanced Practice Midwife
DX: Z01.411 Encounter for gynecological examination (general) (routine) with abnormal findings (principal); Z11.51 Encounter for screening for human papillomavirus (HPV); R10.2 Pelvic and perineal pain; Z20.2 Contact with and (suspected) exposure to infections with a predominantly sexual mode of transmission; L73.9 Follicular disorder, unspecified
CPT/HCPCS: 76830; 76856; 87480; 87491; 87510; 87591; 87624; 87660; 88142

== ENCOUNTER 2022-03-28 11:11 | Outpatient (REF) | payer OTHER, SELFPAY ==
--- NOTE | ~2022-03-28 | US_ITS ---
EXAMINATION: US PELVIS CLINICAL INFORMATION: Pelvic and perineal pain. COMPARISON: Ultrasound 07/08/2016. CT abdomen and pelvis 02/21/2022. TECHNIQUE: Ultrasound of the pelvis is performed using both transabdominal and transvaginal transducers along with Doppler. Transvaginal imaging is performed due to inadequate visualization transabdominally. FINDINGS: Uterus: The uterus is retroverted, retroflexed and measures 6.2 x 2.7 x 4.1 cm. The double wall endometrial thickness is 0.5 cm. The uterus is smooth in contour and has normal myometrial echogenicity. There is a solitary uterine fibroid right upper body of uterus measuring 1.4 x 1.1 x 1.3 cm. Previously, it measured 1.4 x 1.8 x 1.5 cm. A second lesion seen on previous ultrasound is not visualized at this time. There are small nabothian cysts seen in the cervix. Adnexa: Both ovaries are not visualized. There is no free fluid in the cul-de-sac. US/US pelvic and transvaginal IMPRESSION: Solitary right uterine fibroid. A second fibroid seen on the previous ultrasound 2015 is not seen at this time. Several nabothian cysts in the cervix. Ovaries are not seen.
== END 2022-03-28 11:12 | disposition home or self-care (01) ==
LOC: HO.US 11:11
PROVIDERS: PCP Internal Medicine; Visit Provider Advanced Practice Midwife
DX: Z13.89 Encounter for screening for other disorder (principal)
CPT/HCPCS: 76830; 76856

== ENCOUNTER → 2022-03-29 07:58 | Outpatient (BNVA) | payer OTHER, SELFPAY | PROVIDERS: PCP Internal Medicine; Visit Provider Internal Medicine Rheumatology | DX: Z71.2 Person consulting for explanation of examination or test findings (principal); R32 Unspecified urinary incontinence; M70.61 Trochanteric bursitis, right hip; M70.62 Trochanteric bursitis, left hip | CPT/HCPCS: 20610 ==

== ENCOUNTER 2023-04-05 07:35 | Outpatient (REF) | payer OTHER, SELFPAY ==
--- NOTE | ~2023-04-05 | XR_ITS ---
EXAMINATION: XR LUMBOSACRAL SPINE CLINICAL INFORMATION: Low back pain COMPARISON: 11/17/2007 TECHNIQUE: Three views of the lumbosacral spine. FINDINGS: There is no significant interval change in appearance of well aligned vertebral bodies. There are 5 nonrib-bearing vertebral bodies. There is mild narrowing of L2-L3 with marginal spurring. Pedicles are preserved. Sacroiliac joints unremarkable XR/XR lumbar spine 2-3V IMPRESSION: Mild degenerative changes at the level of L2-L3.
[2023-04-05 08:27] LABS: Hematocrit 39.8 % (37.0-47.0); Hemoglobin 12.6 g/dl (12.0-16.0); Mean Corpuscular HGB Conc 31.7 g/dl (31.0-35.0); Mean Corpuscular Hemoglobin 29.3 pg (27.0-33.0); Mean Corpuscular Volume 92.6 fL (80.0-98.0); Mean Platelet Volume 9.7 fL (9.4-12.3); Platelet Count 451 X10*3/uL (160-400); Red Cell Distribution Width 14.5 % (11.0-16.0); White Blood Count 11.2 X10*3/uL (4.8-10.8)
[2023-04-05 08:56] LABS: Alanine Aminotransferase 21 U/L (0-31); Alkaline Phosphatase 121 U/L (39-117); Anion Gap 13 (12-20); Aspartate Amino Transferase 14 U/L (5-31); Bilirubin Total 0.8 mg/dL (0.0-1.0); Blood Urea Nitrogen 17 mg/dL (9-16); Calcium 9.7 mg/dL (8.4-10.2); Carbon Dioxide 28 mmol/L (22-29); Chloride 108 mmol/L (96-108); Cholesterol 139 mg/dL; Estimated Glomerular Filt Rate > 60; Glucose Fasting 95 mg/dL (60-99); HDL Cholesterol 39 mg/dL; LDL Cholesterol Calculated 86 mg/dl; Potassium 4.9 mmol/L (3.3-5.1); Sodium 144 mmol/L (135-145); Total Protein 6.9 g/dL (6.5-8.0); Triglycerides 70 mg/dL
[2023-04-05 09:27] LABS: Folate 12.1 ng/mL (> or = 4.0); TSH reflex Free T4 1.07 uIU/mL (0.32-4.0); Vitamin B12 1066 pg/mL (200-900); Vitamin D 25-OH Total 39.9 ng/mL (>30)
== END 2023-04-05 07:36 | disposition home or self-care (01) ==
LOC: HO.LAB 07:35
PROVIDERS: Absent Provider Internal Medicine Rheumatology; PCP Internal Medicine; Visit Provider Nurse Practitioner Family
DX: I10 Essential (primary) hypertension (principal); M54.50 Low back pain, unspecified; M79.671 Pain in right foot; M79.672 Pain in left foot; M72.2 Plantar fascial fibromatosis; M70.61 Trochanteric bursitis, right hip; M70.62 Trochanteric bursitis, left hip; M79.7 Fibromyalgia
CPT/HCPCS: 36415; 72100; 80053; 80061; 82306; 82607; 82746; 84443; 85027; 99212

== ENCOUNTER 2023-04-14 10:28 | Outpatient (REF) | payer OTHER, SELFPAY ==
--- NOTE | ~2023-04-14 | CT_ITS ---
EXAMINATION: CT HEAD WITHOUT CONTRAST CLINICAL INFORMATION: Anesthesia of skin. Tingling on left side of face. COMPARISON: Head CT dated 10/19/2012. TECHNIQUE: Contiguous axial imaging was performed from the skullbase to vertex without intravenous administration of contrast. This CT examination was performed using dose optimization techniques as appropriate, variously including the following: *Automated exposure control *Adjustment of mA and/or kV according to patient size (this includes techniques or standardized protocols for targeted exams where dose is matched to indication/reason for exam; i.e. extremities or head) *Use of iterative reconstruction technique DLP: 738 mGy-cm. FINDINGS: There is no evidence of acute intracranial hemorrhage or territorial infarction. No abnormal mass effect or midline shift is seen. Freedman to white matter differentiation is well preserved. No extra-axial fluid collections are identified. The ventricles are normal in size. There is no abnormal attenuation within the brain parenchyma. The osseous structures and soft tissues are normal. The mastoid air cells are well aerated. Mild ethmoid sinus mucosal thickening noted. CT/CT head/brain wo IV con IMPRESSION: No acute intracranial pathology.
== END 2023-04-14 10:29 | disposition home or self-care (01) ==
LOC: HO.CT 10:28
PROVIDERS: PCP Nurse Practitioner Family; Visit Provider Nurse Practitioner Family
DX: R20.0 Anesthesia of skin (principal); R20.2 Paresthesia of skin
CPT/HCPCS: 70450

== ENCOUNTER 2023-04-18 15:48 | Outpatient (REF) | payer OTHER, SELFPAY ==
--- NOTE | ~2023-04-18 | US_ITS ---
EXAMINATION: US SOFT TISSUE HEAD/NECK CLINICAL INFORMATION: Cervicalgia. Anterior neck pain and feels a lump on left side clavicle region. COMPARISON: None available. TECHNIQUE: Linear transducer grayscale and color Doppler examination of the left clavicular area. FINDINGS: The cutaneous, subcutaneous, muscular and fascial planes are unremarkable. No lymphadenopathy is seen. There is no mass or fluid collection. No foreign body is noted. US/US soft tiss head and/or neck IMPRESSION: Unremarkable examination.
== END 2023-04-18 15:49 | disposition home or self-care (01) ==
LOC: HO.US 15:48
PROVIDERS: PCP Nurse Practitioner Family; Visit Provider Nurse Practitioner Family
DX: M54.2 Cervicalgia (principal)
CPT/HCPCS: 76536

== ENCOUNTER → 2023-04-25 09:27 | Outpatient (BNVA) | payer OTHER, SELFPAY | PROVIDERS: PCP Internal Medicine; Visit Provider Orthopaedic Surgery | DX: M67.432 Ganglion, left wrist (principal); M19.041 Primary osteoarthritis, right hand; M19.042 Primary osteoarthritis, left hand; M79.7 Fibromyalgia; R20.0 Anesthesia of skin; R20.2 Paresthesia of skin | CPT/HCPCS: 99212 ==

== ENCOUNTER 2023-04-29 13:08 | Emergency (ER) | payer OTHER, SELFPAY ==
[2023-04-29 13:58] VITALS: BMI 30.9
[2023-04-29 14:11] LABS: Appearance Urine Clear; Color Urine Yellow; Glucose Urine UA Negative (Negative); Leukocyte Esterase Urine Negative (Negative); Nitrite Urine Negative (Negative); PH 5.5 (5.0-9.0); UMIC TRIGGER UACC YES; Urine Blood Moderate (2+) (Negative); Urine Ketones Negative (Negative); Urine Protein Negative (Neg-Trace)
[2023-04-29 14:20] LABS: Amphetamine Screen Urine Not Detected (Not Detect); Barbiturates, Urine Not Detected (Not Detect); Benzodiazepines Screen Urine Not Detected (Not Detect); Cannabinoid Screen Urine Not Detected (Not Detect); Cocaine Screen Urine Not Detected (Not Detect); Fentanyl, urine Not Detected (Not Detect); Opiate Screen Urine Not Detected (Not Detect); Phencyclidine Screen Urine Not Detected (Not Detect)
[2023-04-29 14:28] LABS: Bacteria Urine None Seen (None Seen); Hyaline Casts Urine 0-2 /LPF (0-2); Squamous Epithelial Cell Urine 0-2 /HPF (0-2); WBC Urine 0-5 /HPF (0-5)
--- NOTE | 2023-04-29 14:45 | ED.PSYCH ---
HPI - Psych General Chief Complaint: Psychiatric Symptoms Stated Complaint: crisis Time Seen by Provider: 04/29/23 14:37 Source: patient Mode of arrival: ambulatory Limitations: no limitations History of Present Illness HPI Narrative: 52-year-old female came in for depression and feeling anxious, patient stated that her son has a terminal cancer, patient also live in 1 room that she rented out, currently patient has no SI or HI. No drug use. Sometimes hear voices telling her that she does not deserve to live. Related Data Home Medications Medication Instructions Recorded Confirmed gabapentin 800 mg tablet 800 mg PO BEDTIME 04/04/23 04/05/23 duloxetine 60 mg capsule,delayed 60 mg PO DAILY 04/05/23 04/05/23 release Previous Rx's Medication Instructions Recorded nebulizers #1 ea 01/24/22 nebulizers (Bundlea Nebulizer #1 ea 01/24/22 System) polyethylene glycol 3350 17 17 g PO DAILY #238 grams 02/25/22 gram/dose oral powder mupirocin 2 % topical ointment 1 appl topical BID #15 grams 03/01/22 hydroxyzine pamoate 50 mg capsule 50 mg PO BID #60 caps 03/23/22 sennosides 8.6 mg tablet (Senokot) 8.6 mg PO BID PRN constipation #30 03/23/22 tabs cholecalciferol (vitamin D3) 125 125 mcg PO DAILY #30 caps 03/28/22 mcg (5,000 unit) capsule divalproex 250 mg tablet,delayed 250 mg PO BID #30 tabs 04/18/22 release (Depakote) tramadol 50 mg tablet 50 mg PO DAILY PRN pain (scale 09/22/22 score 7-10) #30 tabs zolpidem 10 mg tablet (Ambien) 10 mg PO BEDTIME PRN insomnia #30 09/22/22 tabs albuterol sulfate 90 mcg/actuation 1 inh inhalation Q4H PRN 04/04/23 aerosol inhaler bronchospasm #8.5 grams amlodipine 5 mg tablet 5 mg PO DAILY #90 tabs 04/04/23 cane #1 ea 04/04/23 miscellaneous medical supply 1 ea miscellaneous DAILY #1 ea 04/04/23 miscellaneous medical supply #1 ea 04/04/23 (Blood Pressure Cuff) nicotine 21 mg/24 hr daily 1 patch transdermal DAILY #28 ea 04/04/23 transdermal patch albuterol sulfate 2.5 mg/3 mL 2.5 mg (3 mL) inhalation Q4-6H PRN 04/05/23 (0.083 %) solution for nebulization bronchospasm #15 mL atorvastatin 40 mg tablet 40 mg PO DAILY #30 tabs 04/05/23 omykbxekiv-yuhbgnyjambvm-xwxfmopu 1 cap PO Q4-6H PRN pain #14 caps 04/05/23 50 mg-325 mg-40 mg capsule fluticasone propionate 110 1 puff inhalation BID #12 grams 04/05/23 mcg/actuation HFA aerosol inhaler (Flovent HFA) gabapentin 300 mg capsule 300 mg PO DAILY #30 caps 04/05/23 walker #1 ea 04/05/23 pantoprazole 40 mg tablet,delayed 40 mg PO DAILY #30 tabs 04/11/23 release lidocaine 5 % topical patch 1 patch topical DAILY PRN pain 30 04/25/23 days #30 ea famotidine 40 mg tablet (Pepcid) 40 mg PO BEDTIME #30 tabs 04/28/23 montelukast 10 mg tablet 10 mg PO BEDTIME PRN allergy 04/28/23 symptoms #30 tabs Allergies Allergy/AdvReac Type Severity Reaction Status Date / Time No Known Allergies Allergy Verified 04/25/23 09:47 [No Known Allergies*] Review of Systems Review of Systems: All other systems are reviewed and are negative Constitutional: Reports as per HPI and Reports no additional constitutional complaints Eyes: Reports as per HPI and Reports no additional eye complaints Reports system reviewed and no additional complaints, except as documented Cardiovascular: Reports as per HPI and Reports no additional cardiovascular complaints Respiratory: Reports as per HPI and Reports no additional respiratory complaints Gastrointestinal: Reports as per HPI and Reports no additional gastrointestinal complaints Genitourinary: Reports no additional female genitourinary complaints Musculoskeletal: Reports no additional musculoskeletal complaints Skin/Breast: Reports system reviewed and no additional complaints, except as docu Psychiatric: Reports no additional psychiatric complaints Endocrine: Reports no additional endocrine complaints Hematologic/Lymphatic: Reports no additional hematologic/lymphatic complaints Allergic/Immunologic: Reports no additional allergic/immunologic complaints Reports system reviewed and no additional complaints, except as documented and Reports Abnormal speech present [facility] Past Medical History Medical History Allergic rhinitis Asthma Bipolar 1 disorder Fibromyalgia Generalized anxiety disorder GERD (gastroesophageal reflux disease) Hypercholesteremia Hypertension Osteoarthritis of both hands Smoker Trochanteric bursitis of both hips Surgical History History of appendectomy History of back surgery History of tubal ligation Family History Family History Mother Depression Hypertension Bone cancer Anxiety Mental health disorder Father Diabetes Son Pancreatic cancer Sister Liver cancer Social History Social History Housing: Apartment Alcohol intake: current Alcohol intake frequency: holidays/special occasions only Patient Tobacco Use Status: Current everyday Tobacco user Tobacco use type: Cigarette Cigarette Packs Per Day: 1 Cigarettes Per Day: 10 e-Cigarette/Vaping Use: Never Used Second Hand Smoke Exposure: Yes Advance Directives: No Advance Directives Information Provided: No service: No Current occupational status: disabled Sexual orientation: Straight/Heterosexual Gender identity: Female Cognitive needs: No Hearing needs: No Vision needs: Yes (Glasses) Physical Exam Vital Signs: Vital Signs: BMI result Body Mass Index 30.9 Vital signs have been reviewed as appeared to be correct. Blood pressure normal. Heart rate normal. Respiration rate normal. Temperature normal. Oxygen saturation normal. Appearance: Alert. Oriented X3. No acute distress. Head: Normal external exam. Normocephalic. Atraumatic. No Villarreal signs noted. No raccoon eyes noted Eyes: PERRLA. EOMI. Conjunctiva and sclera normal. Eyelids normal. ENT: TM's Normal. Pharynx normal. Uvula midline. Moist mucous membranes. No trismus noted. No drooling noted. No muffled voice noted. Neck: Normal inspection. Neck supple. FROM. No adenopathy. Thyroid Normal. No meningeal signs. No neck mass noted. CVS: Normal heart rate and rhythm. Heart sound normal. No murmurs noted. Pulses normal throughout. Respiratory: No respiratory distress. Painless inspiration. Breath sounds normal. No wheezes/rales/rhonchi noted. Chest nontender. No accessory muscle usage noted or decreased air movement noted. Abdomen: Soft and nontender. Bowel sounds normal in all 4 quadrants. No distention noted. No organomegaly noted. No visible injury noted. Back: No CVA tenderness. Full range of motion noted. Skin: Skin warm and dry. Normal skin color. Normal skin turgor. No rashes/lesions/lacerations noted. Extremities: No lower extremity edema. Extremities exhibit normal range of motion. Extremities nontender. Neuro: Oriented X 3. Cranial nerve exam: II-XII are grossly intact No motor deficit. No sensory deficit. Reflexes normal. Patient Orientation: Person, Place, Time and Situation, okay hygiene and grooming. Fair eye contact, attentive, no tics or tremors, tearful Level of Consciousness: Awake, Appropriate and Alert Patient Behavior: Appropriate, Guarded, Cooperative and Anxious Mood Description: Constricted, Blunted and Apprehensive Affect Description: Constricted, Blunted and Apprehensive Patient Cognition Impaired: No Ability to Follow Directions: Excellent Speech Pattern: Clear, Appropriate and Spontaneous Speech, nonpressured, spontaneous with regular rate and rhythm, normal volume and prosody. No dysarthria. Memory Description: Intact, Immediate Intact and Short Term Intact Hallucinations: None Delusions: Not Present Thought Process: Intact Thought Content: positive for Intact, positive for Logical, denies Suicidal Ideation and denies Homicidal Ideation. Depressive Symptoms: Not present. Judgement and Insight: Limited but adequate. Course Course Course Narrative: 52-year-old female depressed and anxious, no SI or HI, sometimes hear voices telling her to hurt herself. Medical Decision Making Differential Diagnosis Differential Diagnoses: The differential diagnosis associated with the presentation includes (Depression, SI, HI, acute psychosis, anxiety,) Admission/Observation Consideration of admission/observation: Escalation of care including admission/observation considered Lab Data MDM Lab Attestation statement: I reviewed the patient's lab results. Labs: Lab Results 04/29/23 04/29/23 Range/Units 14:00 14:00 Urine Color Yellow Urine Appearance Clear Urine pH 5.5 (5.0-9.0) Ur Specific [place] 1.020 (1.005-1.025) Urine Protein Negative (Neg-Trace) mg/dL Urine Glucose (UA) Negative (Negative) mg/dL Urine Ketones Negative (Negative) mg/dL Urine Blood Moderate (2+) H (Negative) Urine Nitrite Negative (Negative) Ur Leukocyte Esterase Negative (Negative) Urine RBC 11-20 H (0-2) /HPF Urine WBC 0-5 (0-5) /HPF Ur Squamous Epith Cells 0-2 (0-2) /HPF Urine Bacteria None Seen (None Seen) Hyaline Casts 0-2 (0-2) /LPF Urine Opiates Screen Not Detected (Not Detect) Urine Fentanyl Screen Not Detected (Not Detect) Ur Barbiturates Screen Not Detected (Not Detect) Ur Phencyclidine Scrn Not Detected (Not Detect) Ur Amphetamines Screen Not Detected (Not Detect) U Benzodiazepines Scrn Not Detected (Not Detect) Urine Cocaine Screen Not Detected (Not Detect) U Marijuana (THC) Screen Not Detected (Not Detect) Discharge Plan Discharge Clinical Impression: Acute anxiety Patient Disposition: Still a Patient Prescriptions: No Action polyethylene glycol 3350 17 gram/dose powder 17 g PO DAILY Qty: 238 0RF hydroxyzine pamoate 50 mg capsule 50 mg PO BID Qty: 60 2RF sennosides [Senokot] 8.6 mg tablet 8.6 mg PO BID PRN (Reason: constipation) Qty: 30 0RF cholecalciferol (vitamin D3) 125 mcg (5,000 unit) capsule 125 mcg PO DAILY Qty: 30 1RF divalproex [Depakote] 250 mg tablet,delayed release (DR/EC) 250 mg PO BID Qty: 30 0RF zolpidem [Ambien] 10 mg tablet 10 mg PO BEDTIME PRN (Reason: insomnia) Qty: 30 0RF tramadol 50 mg tablet 50 mg PO DAILY PRN (Reason: pain (scale score 7-10)) Qty: 30 0RF albuterol sulfate 2.5 mg /3 mL (0.083 %) solution for nebulization 2.5 mg inhalation Q4-6H PRN (Reason: bronchospasm) Qty: 15 0RF atorvastatin 40 mg tablet 40 mg PO DAILY Qty: 30 2RF vqwkxlchzg-jbdbyhaxncjhc-svod 50-325-40 mg capsule 1 cap PO Q4-6H PRN (Reason: pain) Qty: 14 0RF gabapentin 300 mg capsule 300 mg PO DAILY Qty: 30 1RF Flovent HFA 110 mcg/actuation HFA aerosol inhaler 1 puff inhalation BID Qty: 12 0RF lidocaine 5 % adhesive patch,medicated 1 patch topical DAILY PRN (Reason: pain) 30 Days Qty: 30 1RF Rx Instructions: leave on most painful area for up to 12 hrs famotidine [Pepcid] 40 mg tablet 40 mg PO BEDTIME Qty: 30 0RF montelukast 10 mg tablet 10 mg PO BEDTIME PRN (Reason: allergy symptoms) Qty: 30 0RF (DME) nebulizers Mis See Rx Instructions .Route Qty: 1 0RF Rx Instructions: As directed 1 inhalation bid prn bronchospasms (DME) [employer] Nebulizer System Mis See Rx Instructions .Route Qty: 1 0RF Rx Instructions: As directed, 1 inhalation bid mupirocin 2 % ointment 1 appl topical BID Qty: 15 0RF gabapentin 800 mg tablet 800 mg PO BEDTIME nicotine 21 mg/24 hr patch 24 hour 1 patch transdermal DAILY Qty: 28 0RF albuterol sulfate 90 mcg/actuation HFA aerosol inhaler 1 inh inhalation Q4H PRN (Reason: bronchospasm) Qty: 8.5 0RF amlodipine 5 mg tablet 5 mg PO DAILY Qty: 90 0RF (DME) Blood Pressure Cuff [facility] [place] See Rx Instructions .Route Qty: 1 0RF Rx Instructions: As directed, electronic bp cuff, take bp twice a day miscellaneous medical supply [facility] [place] 1 ea miscellaneous DAILY Qty: 1 0RF Rx Instructions: nebulizer machine with tubing (DME) cane Device See Rx Instructions .Route Qty: 1 0RF Rx Instructions: As directed pantoprazole 40 mg tablet,delayed release (DR/EC) 40 mg PO DAILY Qty: 30 3RF duloxetine 60 mg capsule,delayed release(DR/EC) 60 mg PO DAILY (DME) walker Mis See Rx Instructions .Route Qty: 1 0RF Rx Instructions: As directed
[2023-04-29 14:48] LABS: COVID-19 Test Negative (Negative); IDNOW Serial# BCCEAD1C
[2023-04-29 16:39] VITALS: BP 140/75; PULSE 68; RESP 16; O2SAT 99
[2023-04-29] MEDS: Acetaminophen 325 MG TABLET 975 MG PO (17:34)
--- NOTE | 2023-04-29 18:18 | MHC.CARE ---
Pt was seen by CARE team due to anxiety. Pt reports her medications were recently changed and she has been experiencing increased anxiety. Pt reports she is currently facing eviction and her son has terminal cancer. Pt's sister 1 year ago and her mother in 2019. Pt lives alone but reports her daughter lives nearby and helps her. Pt reports she has a follow up appointment with therapist and psychiatrist on 05/04. CARE team clinician discussed additional supports (php, CCS) but pt refused. Pt denying SI/HI/AVH. Clinician also spoke to daughter Tori [phone]. Tori reports lately pt has been crying excessively, irritable and has been isolating herself. Tori has no safety concerns for mother. She stated mother has refused additional help in the home through [employer] helper services. She reports pt is generally med compliant. Tori supports pt being d/c home with no additional services.
== END 2023-04-29 18:25 | disposition home or self-care (01) ==
PROVIDERS: Emergency Provider Emergency Medicine; PCP Internal Medicine
DX: F33.1 Major depressive disorder, recurrent, moderate (principal); R45.851 Suicidal ideations; F41.1 Generalized anxiety disorder; F43.0 Acute stress reaction; F17.210 Nicotine dependence, cigarettes, uncomplicated; Z71.6 Tobacco abuse counseling; Z79.899 Other long term (current) drug therapy
CPT/HCPCS: 80307; 81001; 87635; 99285

== ENCOUNTER → 2023-05-02 08:52 | Outpatient (BNVA) | payer OTHER, SELFPAY | PROVIDERS: PCP Internal Medicine; Visit Provider Nurse Practitioner Family | DX: M79.7 Fibromyalgia (principal); M47.816 Spondylosis without myelopathy or radiculopathy, lumbar region; M54.2 Cervicalgia; M81.0 Age-related osteoporosis without current pathological fracture; M70.61 Trochanteric bursitis, right hip; M70.62 Trochanteric bursitis, left hip | CPT/HCPCS: 99202 ==

== ENCOUNTER 2023-05-16 06:00 | Outpatient (REF) | payer OTHER, SELFPAY | END 2023-05-16 06:01 | disposition home or self-care (01) | LOC: CF 06:00 | PROVIDERS: Visit Provider Anesthesiology | DX: Z13.89 Encounter for screening for other disorder (principal) ==

== ENCOUNTER 2025-11-13 09:49 | Outpatient (AMB) | payer OTHER, SELFPAY ==
--- OUTSIDE RECORDS SUMMARY | 2025-11-11 12:19 | XMS_ITS | Continuity of Care Document ---
Author Organization [facility] Address [address] [place] [address]- Care Team Providers Care Conference Reservationist Name Role Phone Not on Staff, PCP Primary Care Physician Unavail able [place] [facility] [place] 11/11/25 [facility] [address] [place] [address]- Encounter Diagnosis Major depressive disorder, recurrent, severe with psychotic features(Discharge Diagnosis) - 11/06/25 Generalized anxiety disorder(Discharge Diagnosis) - 11/06/25 PTSD (post-traumatic stress disorder)(Discharge Diagnosis) - 11/06/25 Seizure disorder(Discharge Diagnosis) - 11/06/25 Discharge Disposition: A-D/C Home Attending Physician: Juan Alberto Mcgowan MD Admitting Physician: Juan Alberto Mcgowan MD Referring Physician: Not on Staff, Referring MD Encounter Type: Disch IP Allergies, Adverse Reactions, Alerts No Known Medication Allergies Substance Criticality Severity Reaction Reaction Severity Status Mushrooms Active Functional Status Functional Status Assessment Assessment Assessment Component Result Effecti ve Date Total score [AUDIT] 0 11/06/25 Functional Status Assessment Assessment Assessment Component Result Effecti ve Date Total Falls Risk Score 10 11/10 Functional Status Assessment Assessment Assessment Component Result Effecti ve Date Sloan scale total score 20 Functional Status Assessment Assessment Assessment Component Result Effecti ve Date Total Falls Risk Score 10 11/11 Functional Status Assessment Assessment Assessment Component Result Effecti ve Date Sloan scale total score 20 Functional Status Assessment Assessment Assessment Component Result Effecti ve Date Total Falls Risk Score 7 11/10 Functional Status Assessment Assessment Assessment Component Result Effecti ve Date Sloan scale total score 21 Functional Status Assessment Assessment Assessment Component Result Effecti ve Date Disability status [CUBS] I'm Vulnerable - I sometimes or periodically have acute or chronic symptoms affecting housing, employment, social interactions, etc. 11/06/25 Do you need any additional assistance or accommodations during your visit Yes 11/06/25 Difficulty Reading O r Writing Yes 11/06/25 Difficulty communica ting in usual language Yes 11/06/25 Because of a physica l, mental, or emotional condition, do you have difficulty doing errands alone such as visiting a physician's office or shopping Yes 11/06/25 Do you have difficul ty dressing or bathing Yes 11/06/25 Do you have serious difficulty walking or climbing stairs Yes 11/06/25 Because of a physica l, mental, or emotional condition, do you have serious difficulty concentrating, remembering, or making decisions Don't know 11/06/25 Are you blind, or do you have serious difficulty seeing, even when wearing glasses Yes 11/06/25 Are you deaf, or do you have serious difficulty hearing Yes 11/06/25 Immunizations Given and Recorded Vaccine Date Status Refusal Reason influenza virus vaccine, inactivated 10/18/25 Give n influenza virus vaccine, inactivated 01/22/19 Carlos rded influenza virus vaccine, inactivated 12/08/17 Carlos rded influenza virus vaccine, inactivated 08/25/16 Carlos rded SARS-CoV-2 mRNA (camilo) vax 03/03/22 Recorded tetanus/diphtheria/pertussis, acel(Tdap) 08/25/16 Recorded tetanus-diphtheria toxoids (Td) 11/02/09 Recorded tetanus-diphtheria toxoids (Td) 11/06/95 Recorded Measles/Mumps/Rubella Virus Vaccine 10/12/01 Recor ded Measles/Mumps/Rubella Virus Vaccine 02/06/75 Recor ded Poliovirus Vaccine, Inactivated 06/03/76 Recorded Poliovirus Vaccine, Inactivated 06/19/75 Recorded Poliovirus Vaccine, Inactivated 04/10/75 Recorded diphtheria/tetanus/pertussis, acel(DTaP) 06/03/76 Recorded diphtheria/tetanus/pertussis, acel(DTaP) 06/19/75 Recorded diphtheria/tetanus/pertussis, acel(DTaP) 04/10/75 Recorded diphtheria/tetanus/pertussis, acel(DTaP) 3/13/75 Recorded Medications Acetaminophen Tablet 650 mg, Tablet, By Mouth, Every 6 hours, PRN for Pain , Moderate, Routine, 11/06/25 4:00:00 PM EST Start Date: 11/06/25 Stop Date: 11/11/25 Status: Discontinued Medication Dispense Status: Completed Total Allowed Fills: 1 Fills Dispensed: 0 albuterol 90 mcg/inh inhalation powder 1 inhalation = 90 mcg, Inhalation, Every 4 hours, PRN Wheezing/Shortness of Breath, Maintenance, 10/10/25 2:02:00 PM EST, Partial fill upon patient request if the prescription is for a schedule II opioid drug. Start Date: 10/10/25 Status: Ordered Medication Dispense Status: Completed Total Allowed Fills: 1 Fills Dispensed: 0 amLODIPine 2.5 mg oral tablet 1 tablet = 2.5 mg, By Mouth, Daily, # 30 tablet, 0 Refills, Maintenance, 10/22/25 10:35:00 AM EST, Tablet, [facility], Partial fill upon patient request if the prescription is for a schedule II opioid drug., 162.56, cm, 10/22/25 7:16:00 EST, Height, 82.2, kg, 10/17/25 16:30:00 EST, Dry Weight Start Date: 10/22/25 Status: Ordered Medication Dispense Status: Completed Quantity: 30.0 Unit: tablet Total Allowed Fills: 1 Fills Dispensed: 0 ARIPiprazole 2 mg oral tablet 2 mg, By Mouth, Daily at bedtime, # 30 tablet, Refills 0, Tot. Refills 0, Maintenance, 11/11/25 9:11:00 AM EST, Route to Pharmacy Electronically, [facility]/pharmacy #[id number], Partial fill upon patient requestif the prescription is for a schedule II opioid drug., 163, cm, 11/11/25 8:31:00 EST, Height, 79.3,kg, 11/06/25 12:10:00 EST, Dry Weight Start Date: 11/11/25 Status: Ordered Medication Dispense Status: Completed Quantity: 30.0 Unit: tablet Total Allowed Fills: 1 Fills Dispensed: 0 aspirin 81 mg oral delayed release tablet 81 mg, 1, tablet, By Mouth, Daily, # 30 tablet, Refills 0, Tot. Refills 0, Maintenance, 10/22/25 10:35:00 AM EST, Route to Pharmacy Electronically, [facility], Partial fill upon patientrequest if the prescription is for a schedule II opioid drug., 162.56, cm, 10/22/25 7:16:00 EST, Height, 82.2, kg, 10/17/25 16:30:00 EST, Dry Weight Start Date: 10/22/25 Status: Ordered Medication Dispense Status: Completed Quantity: 30.0 Unit: tablet Total Allowed Fills: 1 Fills Dispensed: 0 atorvastatin 40 mg oral tablet = 40 mg, By Mouth, Daily at bedtime, # 30 tablet, 0 Refills, Maintenance, 10/22/25 10:35:00 AM EST,Tablet, [facility], Partial fill upon patient request if the prescription is for a schedule II opioid drug., 162.56, cm, 10/22/25 7:16:00 EST, Height, 82.2, kg, 10/17/25 16:30:00 EST, Dry Weight Start Date: 10/22/25 Stop Date: 11/21/25 Status: Ordered Medication Dispense Status: Completed Quantity: 30.0 Unit: tablet Total Allowed Fills: 1 Fills Dispensed: 0 clonazePAM 0.5 mg oral tablet = 1 mg, By Mouth, Daily at bedtime, # 30 tablet, 0 Refills, Maintenance, 10/22/25 10:36:00 AM EST, Tablet, Partial fill upon patient request if the prescription is for a schedule II opioid drug. Start Date: 10/22/25 Stop Date: 11/21/25 Status: Ordered Medication Dispense Status: Completed Quantity: 30.0 Unit: tablet Total Allowed Fills: 1 Fills Dispensed: 0 diltiazem 30 mg oral tablet 30 mg, 1, tablet, By Mouth, 2 times a day, # 60 tablet, Refills 0, Tot. Refills 0, Maintenance, 10/22/25 10:36:00 AM EST, Route to Pharmacy Electronically, [facility], Partial fill uponpatient request if the prescription is for a schedule II opioid drug., 162.56, cm, 10/22/25 7:16:00EST, Height, 82.2, kg, 10/17/25 16:30:00 EST, Dry Weight Start Date: 10/22/25 Status: Ordered Medication Dispense Status: Completed Quantity: 60.0 Unit: tablet Total Allowed Fills: 1 Fills Dispensed: 0 diltiazem 30 mg oral tablet 30 mg, Tablet, By Mouth, 11/10/25 9:00:00 PM EST Start Date: 11/10/25 Stop Date: 11/10/25 Status: Completed Medication Dispense Status: Completed Total Allowed Fills: 1 Fills Dispensed: 0 divalproex sodium 250 mg oral enteric coated tablet 1 tablet = 250 mg, By Mouth, 2 times a day, # 60 tablet, 0 Refills, Maintenance, 10/22/25 10:36:00 AM EST, Tablet, [facility], Partial fill upon patient request if the prescription is for a schedule II opioid drug., 162.56, cm, 10/22/25 7:16:00 EST, Height, 82.2, kg, 10/17/25 16:30:00EST, Dry Weight Start Date: 10/22/25 Status: Ordered Medication Dispense Status: Completed Quantity: 60.0 Unit: tablet Total Allowed Fills: 1 Fills Dispensed: 0 Docusate Sodium Capsule 100 mg, 1, capsule, By Mouth, 2 times a day, Refills 0, Maintenance, 10/22/25 10:37:00 AM EST, Partial fill upon patient request if the prescription is for a schedule II opioid drug. Start Date: 10/22/25 Status: Ordered Medication Dispense Status: Completed Total Allowed Fills: 1 Fills Dispensed: 0 escitalopram 5 mg oral tablet 1 tablet = 5 mg, By Mouth, Daily, # 30 tablet, 0 Refills, Maintenance, 11/11/25 9:11:00 AM EST, Tablet, [facility]/pharmacy #[id number], Partial fill upon patient request if the prescription is for a schedule II opioid drug., 163, cm, 11/11/25 8:31:00 EST, Height, 79.3, kg, 11/06/25 12:10:00 EST, Dry Weight Start Date: 11/11/25 Status: Ordered Medication Dispense Status: Completed Quantity: 30.0 Unit: tablet Total Allowed Fills: 1 Fills Dispensed: 0 gabapentin 400 mg oral capsule 800 mg, By Mouth, Daily at bedtime, # 30 capsule, Refills 0, Tot. Refills 0, Maintenance, 10/22/25 10:36:00 AM EST, Route to Pharmacy Electronically, [facility], Partial fill upon patient request if the prescription is for a schedule II opioid drug., 162.56, cm, 10/22/25 7:16:00 EST, Height, 82.2, kg, 10/17/25 16:30:00 EST, Dry Weight Start Date: 10/22/25 Stop Date: 11/21/25 Status: Ordered Medication Dispense Status: Completed Quantity: 30.0 Unit: capsule Total Allowed Fills: 1 Fills Dispensed: 0 hydrOXYzine pamoate 25 mg oral capsule See Instructions, PRN Anxiety, [place] 1 o 2 capsulas hasta dos veces al jostin, si lo necesita, para la ansiedad. ([place]adi[place] 4 capsulas al jostin), # 120 capsule, 0 Refills, Acute 12/11/25 12:00:00 PM EST, 11/11/25 9:38:00 AM EST, Capsule, [facility]/pharmacy #[id number], Partial fill upon patient request if the prescription is for a schedule II opioid drug., 163, cm, 11/11/25 8:31:00 EST, Height, 79.3, kg, 11/06/25 12:10:00 EST, Dry Weight Start Date: 11/11/25 Stop Date: 12/11/25 Status: Ordered Medication Dispense Status: Completed Quantity: 120.0 Unit: capsule Total Allowed Fills: 1 Fills Dispensed: 0 ibuprofen 400 mg oral tablet 400 mg, Tablet, By Mouth, 3 times a day, PRN for Pain , Mild, Routine, 11/06/25 3:57:00 PM EST Start Date: 11/06/25 Stop Date: 11/11/25 Status: Discontinued Medication Dispense Status: Completed Total Allowed Fills: 1 Fills Dispensed: 0 Keppra 500 mg oral tablet 1 tablet = 500 mg, By Mouth, Every 12 hours, # 60 tablet, 0 Refills, Maintenance, 10/22/25 10:36:00AM EST, Tablet, [facility], Partial fill upon patient request if the prescription is for a schedule II opioid drug., 162.56, cm, 10/22/25 7:16:00 EST, Height, 82.2, kg, 10/17/25 16:30:00 EST, Dry Weight Start Date: 10/22/25 Status: Ordered Medication Dispense Status: Completed Quantity: 60.0 Unit: tablet Total Allowed Fills: 1 Fills Dispensed: 0 nicotine 21 mg/24 hr transdermal film, extended release = 21 mg, Topically, Daily, # 30 patch, 0 Refills, Maintenance, 11/11/25 9:37:00 AM EST, Patch, [facility]/pharmacy #[id number], Partial fill upon patient request if the prescription is for a schedule II opioid drug., 21 mg Topically Daily, 163, cm, 11/11/25 8:31:00 EST, Height, 79.3, kg, 11/06/25 12:10:00 EST, Dry Weight Start Date: 11/11/25 Status: Ordered Medication Dispense Status: Completed Quantity: 30.0 Unit: patch Total Allowed Fills: 1 Fills Dispensed: 0 oxybutynin 5 mg oral tablet 1 tablet = 5 mg, By Mouth, 2 times a day, # 60 tablet, 0 Refills, Maintenance, 10/22/25 10:37:00 AMEST, Tablet, [facility], Partial fill upon patient request if the prescription is fora schedule II opioid drug., 162.56, cm, 10/22/25 7:16:00 EST, Height, 82.2, kg, 10/17/25 16:30:00 EST, Dry Weight Start Date: 10/22/25 Status: Ordered Medication Dispense Status: Completed Quantity: 60.0 Unit: tablet Total Allowed Fills: 1 Fills Dispensed: 0 pentoxifylline 400 mg oral tablet, extended release 400 mg, 1, tablet, By Mouth, 2 times a day, with food, # 60 tablet, Refills 0, Tot. Refills 0, Maintenance, 10/22/25 10:37:00 AM EST, Route to Pharmacy Electronically, [facility], Partial fill upon patient request if the prescription is for a schedule II opioid drug., 162.56, cm, 10/22/25 7:16:00 EST, Height, 82.2, kg, 10/17/25 16:30:00 EST, Dry Weight Start Date: 10/22/25 Status: Ordered Medication Dispense Status: Completed Quantity: 60.0 Unit: tablet Total Allowed Fills: 1 Fills Dispensed: 0 Pepcid 40 mg oral tablet 1 tablet = 40 mg, By Mouth, Daily at bedtime, # 30 tablet, 0 Refills, Maintenance, 10/22/25 10:36:00 AM EST, Suspension, [facility], Partial fill upon patient request if the prescription is for a schedule II opioid drug., 162.56, cm, 10/22/25 7:16:00 EST, Height, 82.2, kg, 10/17/25 16: 30:00 EST, Dry Weight Start Date: 10/22/25 Status: Ordered Medication Dispense Status: Completed Quantity: 30.0 Unit: tablet Total Allowed Fills: 1 Fills Dispensed: 0 Protonix 40 mg oral delayed release tablet 1 tablet = 40 mg, By Mouth, Daily, # 30 tablet, 0 Refills, Maintenance, 10/22/25 10:37:00 AM EST, EC Tablet, 162.56, cm, 10/22/25 7:16:00 EST, Height, 82.2, kg, 10/17/25 16:30:00 EST, Dry Weight Start Date: 10/22/25 Status: Ordered Medication Dispense Status: Completed Quantity: 30.0 Unit: tablet Total Allowed Fills: 1 Fills Dispensed: 0 senna 187 mg oral tablet 1 tablet = 8.6 mg, By Mouth, 2 times a day, PRN Constipation, 0 Refills, Maintenance, 10/16/25 9:29:00 AM EST, Tablet, Partial fill upon patient request if the prescription is for a schedule II opioid drug. Start Date: 10/16/25 Status: Ordered Medication Dispense Status: Completed Total Allowed Fills: 1 Fills Dispensed: 0 Singulair 10 mg oral tablet 10 mg, 1, tablet, By Mouth, Daily, # 30 tablet, Refills 0, Tot. Refills 0, Maintenance, 10/22/25 10:36:00 AM EST, Route to Pharmacy Electronically, [facility], Partial fill upon patientrequest if the prescription is for a schedule II opioid drug., 162.56, cm, 10/22/25 7:16:00 EST, Height, 82.2, kg, 10/17/25 16:30:00 EST, Dry Weight Start Date: 10/22/25 Status: Ordered Medication Dispense Status: Completed Quantity: 30.0 Unit: tablet Total Allowed Fills: 1 Fills Dispensed: 0 Problem List Condition Confirmation Course Effective Dates Status H ealth Status Informant Anxiety Confirmed Active Coronary artery disease Confirmed Active CAD (coronary artery disease) Confirmed Active Fibromyalgia Confirmed Active GERD without esophagitis Confirmed Active Generalized anxiety disorder Confirmed Active History of schizophrenia Confirmed Active Bloody diarrhea Confirmed Active History of CVA (cerebrovascular accident) Confirmed Active H/O chest pain Confirmed Active HLD (hyperlipidemia) Confirmed Active Hyperlipidemia Confirmed Active HTN (hypertension) Confirmed Active Hypertension Confirmed Active Claudication Confirmed Active Left-sided weakness Confirmed Active Elevated LFTs Confirmed Active Migraines Confirmed Active Stroke-like symptoms Confirmed Active Nicotine dependence Confirmed Active Obese class I Confirmed Active Overactive bladder Confirmed Active PTSD (post-traumatic stress disorder) Confirmed Active Seizure disorder Confirmed Active Major depressive disorder, recurrent, severe with psychotic features Confirmed Active Current smoker Confirmed Active Diagnosis Diagnosis Type Effective Dates Health Status Clinical Service Informant Major depressive disorder, recurrent, severe with psychotic features Discharge Diagnosis 11/06/25 Generalized anxiety disorder Discharge Diagnosis 11/06/25 PTSD (post-traumatic stress disorder) Discharge Diagnosis 11/06/25 Seizure disorder Discharge Diagnosis 11/06/25 Vital Signs Most recent to oldest [Reference Range]: 1 2 3 Height 163 cm (11/11/25 10:53 AM) 163 cm (11/11/25 8:31 AM) 163 cm (11/10/25 7:30 PM) Weight 79.3 kg (11/06/25 11:51 AM) Oxygen Saturation [94-100 %] 100 % (11/11/25 10:53 AM) 100 % (11/11/25 8:31 AM) 100 % (11/10/25 7:30 PM) Pulse Rate [55-90 bpm] 83 bpm (11/11/25 10:53 AM) 77 bpm (11/11/25 8:31 AM) 71 bpm (11/10/25 7:39 PM) Body Mass Index [18.5-24.99 kg/m2] 29.85 kg/m2 *H* (11/06/25 11:51 AM) Blood Pressure [90-138/55-84 mm Hg] 103/61mm Hg (11/11/25 10:53 AM) 106/63mm Hg (11/11/25 8:31 AM) 120/65mm Hg (11/10/25 7:39 PM) Respiratory Rate [16-30 br/min] 16 br/min (11/11/25 12:04 PM) 16 br/min (11/11/25 12:04 PM) 16 br/min (11/11/25 10:53 AM) Temperature [96.8-100.4 DegF] 97.6 DegF (11/11/25 8:31 AM) 97.7 DegF (11/10/25 7:30 PM) 96.2 DegF *L* (11/10/25 8:09 AM) Mode of Delivery (Oxygen) Room air (11/11/25 10:53 AM) Room air (11/11/25 8:31 AM) Room air (11/10/25 7:30 PM) Blood pressure sites Arm, left (11/11/25 10:53 AM) Arm, left (11/11/25 8:31 AM) Arm, left (11/10/25 7:30 PM) Temperature Route Temporal (11/11/25 8:31 AM) Oral (11/10/25 7:30 PM) Temporal (11/10/25 8:09 AM) Dry Weight 79.3 kg (11/06/25 11:51 AM) Weight Obtained Via Standing scale (11/06/25 11:51 AM) Dry Weight Obtained Via Standing scale (11/06/25 11:51 AM) Social History Social History Type Response Smoking Status 5-9 cigarettes (betw een 1/4 to 1/2 pack)/day in last 30 days entered on: 03/09/25 Sex Sex Representation Female (finding) Social Determinants of Health Assessment Assessment Assessment Component Result Effecti ve Date Unspecifed Social Determinants of Health Assessment Within the last year , have you been afraid of your partner or ex-partner Yes 11/06/25 Do you feel physical ly and emotionally safe where you currently live [PRAPARE] Yes 11/06/25 How often do you see or talk to people that you care about and feel close to [PRAPARE] 6 or more times a week 11/06/25 Has lack of transportation kept you from medical appointments, meetings, work, or from getting things needed for daily living Yes, it has kept me from medical appointments or from getting my medications,Yes, it has kept me from non-medical meetings, appointments, work, or from getting things that I need 11/06/25 Have you or any [facility] members you live with been unable to get any of the following when it was really needed in past 1 year [PRAPARE] Clothing,Utilities 11/06/25 Are you worried abou t losing your housing [PRAPARE] Yes 11/06/25 Housing status I do not have ho using (staying with others, in a hotel, in a snf, living outside on the street, on a beach, in a car, or in a park) 11/06/25 Consult note * Andreas MABRY, Imani: PERFORM Event Display: Consult Authored Date: [id number] Patient: ??CAROLINE REGALADO ? Age:??55 Years?Sex:??Female?:??1970?LOC:??[facility]?? Chief Complaint/Reason for Consultation I came to the hospital to ask for help because I've been depressed. History of Present Illness 55-year-old female with past medical history significant for MDD, PTSD, CVA, HLD, CAD, HTN, seizuredisorder transferred from outside facility for assessment and treatment of depression and suicidal ideation.?? She is currently admitted to [facility] for psychiatric evaluation and stabilization.?? She hasno medical concerns at this time. Review of Systems Const: Negative for fever, chills, fatigue Resp: Negative for cough, shortness of breath, wheezing Cardio: Negative for chest pain, leg swelling, palpitations GI: Negative for abdominal pain, nausea, vomiting, constipation, diarrhea :??Negative for dysuria, urgency, frequency Objective Vital Signs?? Temperature: 97.1 DegF (11/06/25 11:51:00) Temperature Route: Temporal (11/06/25 11:51:00) Pulse Rate: 69 bpm (11/06/25 20:10:00) Respiratory Rate: 17 br/min (11/06/25 21:03:00) Respiratory Rate: 17 br/min (11/06/25 21:03:00) Respiratory Rate: 17 br/min (11/06/25 21:03:00) Systolic Blood Pressure: 100 mm Hg (11/06/25 20:10:00) Diastolic Blood Pressure: 68 mm Hg (11/06/25 20:10:00) Blood pressure sites: Arm, left (11/06/25 20:10:00) Mean Arterial Pressure: 79 mm Hg (11/06/25 20:10:00) Pulse Pressure: 32 mm Hg (11/06/25 20:10:00) Oxygen Saturation: 100 % (11/06/25 20:10:00) Mode of Delivery (Oxygen): Room air (11/06/25 20:10:00) Early Warning Score: 0 (11/06/25 09:42:48) ? Hemodynamic Measures Body surface area: 1.89 (11:51) ?? Ventilator Settings?? No qualifying data available. ?? Intake/Output? No Data Available ? Physical Exam Vital signs/nursing notes reviewed ?? Const:??Resting in bed.??No acute distress, not ill or toxic appearing.?? Cardiovascular: nl rate. regular rhythm. heart sounds nl Pulmonary: nl effort. breath sounds nl. no respiratory distress. Abdominal: flat/soft to palpation. BS X4 quadrants. No distention, tenderness, guarding, rebound. Assessment/Plan Assessment:??55-year-old female past medical history significant MDD, PTSD, CVA, HLD, CAD, HTN, seizure disorder transferred from outside facility for assessment and treatment of depression and suicidal ideation.??Currently admitted to [facility] for psychiatric evaluation and stabilization. ?? Suicidal ideation (R45.851):??Per primary team ?? PTSD (post-traumatic stress disorder) (F43.10):??Per primary team ?? Major depressive disorder, recurrent, severe with psychotic features (F33.3):??Per primary team ?? HLD (hyperlipidemia) (E78.5):??Continue home statin ?? CAD (coronary artery disease) (I25.10):??Continue??home dose aspirin, statin, loaded pain, diltiazem ?? HTN (hypertension) (I10):??Continue home dose amlodipine and diltiazem ?? Seizure disorder (G40.909):??Continue home dose Ulisses Lorenzote ?? Thank you for allowing our service to participate in Caroline??Rohan??Ernestina's care. ??Will signoff. ??Please call back with questions. ? Histories Allergies Allergies ?(Active and Proposed Allergies Only) No Known Medication Allergies? (Severity: Unknown severity, Onset: Unknown) ? Past Medical History/Problem List Active Problems(9) Claudication Coronary artery disease Generalized anxiety disorder GERD without esophagitis Hyperlipidemia Hypertension Nicotine dependence Overactive bladder Seizure disorder ? Past Surgical History No surgery history documented. ? Social History No social history documented. ? Psychosocial History ? Family History No Family History documented. ? Medications Home Medications Amlodipine (amLODIPine 2.5 mg oral tablet)??1 tab(s) 2.5 Milligram By Mouth Daily Aspirin (Aspirin Low Dose 81 mg oral delayed release tablet)??1 tab(s) 81 Milligram By Mouth Daily Atorvastatin (atorvastatin 40 mg oral tablet)??1 tab(s) 40 Milligram By Mouth Daily at bedtime Clonazepam (clonazePAM 0.5 mg oral tablet)??2 tab(s) 1 Milligram By Mouth Daily at bedtime Diltiazem (diltiazem 30 mg oral tablet)??30 Milligram 1 tablet By Mouth 2 times a day Divalproex Sodium (divalproex sodium 250 mg oral enteric coated tablet)??1 tab(s) 250 Milligram By Mouth 2 times a day Famotidine (famotidine 40 mg oral tablet)??1 tab(s) 40 Milligram By Mouth Daily at bedtime Gabapentin (gabapentin 400 mg oral capsule)??800 Milligram By Mouth Daily at bedtime levETIRAcetam (levETIRAcetam 500 mg oral tablet)??1 tab(s) 500 Milligram By Mouth 2 times a day Montelukast (montelukast 10 mg oral tablet)??10 Milligram 1 tablet By Mouth Daily in PM Nicotine (nicotine 21 mg/24 hr transdermal film, extended release)??APPLY 1 PATCH TOPICALLY EVERY DAY. REMOVE OLD PATCH BEFORE APPLYING NEW ONE. Oxybutynin (oxybutynin 5 mg oral tablet)??1 tab(s) 5 Milligram By Mouth 2 times a day Oxycodone (oxyCODONE 5 mg oral tablet)??2.5 Milligram 0.5 tablet By Mouth Every 6 hours as needed as needed for pain Pantoprazole (pantoprazole 40 mg oral delayed release tablet)??1 tab(s) 40 Milligram By Mouth Daily Pentoxifylline (pentoxifylline 400 mg oral tablet, extended release)??400 Milligram 1 tablet By Mouth 2 times a day Zolpidem (Ambien 10 mg oral tablet)??1 tab(s) 10 Milligram By Mouth Daily at bedtime ? Inpatient Medications Medications (31) Active SCHEDULED: (19) Amlodipine 5 mg Tablet (amLODIPine 5 mg oral tablet) ??2.5 mg, By Mouth, Daily Aripiprazole 2 mg Tablet (ARIPiprazole 2 mg oral tablet) ??2 mg, By Mouth, Daily at bedtime Aspirin 81 mg EC Tablet (aspirin 81 mg oral delayed release tablet) ??81 mg, By Mouth, Daily Atorvastatin 40 mg Tablet (atorvastatin 40 mg oral tablet) ??40 mg, By Mouth, Daily at bedtime Clonazepam 1 mg Tablet (Clonazepam) ??1 mg, By Mouth, Daily at bedtime Diltiazem 30 mg Tablet (diltiazem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 Temperature: 97.6 DegF Height: 163 cm Pulse Rate: 83 bpm Weight: 79.3 kg Respiratory Rate: 16 br/min Body Mass Index:??29.85 kg/m2??High Systolic Blood Pressure: 103 mm Hg Body surface area: 1.89 Diastolic Blood Pressure: 61 mm Hg ?? Oxygen Saturation: 100 % ?? Estudios pendientes Studies Pending Todos los estudios encargados silver esta hospitalizaci??n zelaya sido completados a menos que aparezcan a continuaci??n. Hable con carrillo profesional m??dico sobre todos los resultados pendientes indicados anteriormente en estas instrucciones. All studies ordered during this hospital stay have been completed unless listed below. Please discuss all pending results with your provider listed above in these instructions. ?? No incomplete studies found?? Qu?? tiene que hacer ahora What to do next Instrucciones de carrillo m??dico Instructions From Your Doctor ?? Orders?? , ??11/11/25 9:52:00 EST?? Tiene que programar las siguientes citas Discharge Medications ROHAN CAROLINE SHAH :1970 Visit Date:11/06/2025 Medicamentos/Medications: Contin??e con joslyn medicamentos hasta que se haya completado el tratamiento o el profesional m??dicolo detenga. Los medicamentos que no aparecen en la siguiente lista deben ser discontinuados. Hable con carrillo profesional m??dico sobre cualquier pregunta que tenga relacionada con los medicamentos. Please continue your medications until treatment is completed or stopped by your provider. Medications not listed below should be discontinued. Discuss any questions related to medications with your provider. What How Much When Instructions Next Dose New Aripiprazole (ARIPiprazole 2 mg oral tablet) 2 Milligram Oral Daily at Bedtime Ordering Physician: Ana Salomon NP Pickup at [facility]/pharmacy #[id number] 11/11/25 bedtime New Escitalopram (escitalopram 5 mg oral tablet) 1 tab(s) Oral Daily Ordering Physician: Ana Salomon NP Pickup at [facility]/pharmacy #[id number] 11/12/25 AM New HydrOXYzine (hydrOXYzine pamoate 25 mg oral capsule) See instructions Special Instructions: [place] 1 o 2 capsulas hasta dos veces al jostin, si lo necesita, para la ansiedad.(Sadiq 4 capsulas al jostin), As needed for Anxiety Ordering Physician: Ana Salomon NP ?? Pickup at [facility]/pharmacy #[id number] 11/12/25 AM Changed Gabapentin (gabapentin 400 mg oral capsule) 800 Milligram Oral Daily at Bedtime Duration: 30 Days Ordering Physician: Rosalba Stein DO 11/11/25 bedtime Unchanged Albuterol (albuterol 90 mcg/ inh inhalation powder) 1 inhalation Inhalation Every 4 hours as needed for Wheezing/Shortness of Breath As needed every 4 hours Unchanged Amlodipine (amLODIPine 2.5 mg oral tablet) 1 tab(s) Oral Daily Ordering Physician: Rosalba Stein DO 11/12/25 AM Unchanged Aspirin (aspirin 81 mg oral delayed release tablet) 1 tab(s) Oral Daily Ordering Physician: Rosalba Stein DO 11/12/25 AM Unchanged Atorvastatin (atorvastatin 40 mg oral tablet) 40 Milligram Oral Daily at Bedtime Duration: 30 Days Ordering Physician: Rosalba Stein DO 11/11/25 bedtime Unchanged Clonazepam (clonazePAM 0.5 mg oral tablet) 1 Milligram Oral Daily at Bedtime Duration: 30 Days Ordering Physician: Rosalba Stein DO 11/11/25 bedtime Unchanged Diltiazem (diltiazem 30 mg oral tablet) 1 tab(s) Oral Twice a day Ordering Physician: Rosalba Stein DO 11/11/25 bedtime Unchanged Divalproex Sodium (divalproex sodium 250 mg oral enteric coated tablet) 1 tab(s) Oral Twice a day Ordering Physician: Rosalba Stein DO 11/11/25 bedtime Unchanged Docusate (Docusate Sodium Capsule) 100 Milligram Oral Twice a day Ordering Physician: Rosalba Stein DO 11/11/25 bedtime Unchanged Famotidine (Pepcid 40 mg oral tablet) 1 tab(s) Oral Daily at Bedtime Ordering Physician: Rosalba Stein DO 11/11/25 bedtime Unchanged levETIRAcetam (Keppra 500 mg oral tablet) 1 tab(s) Oral Every 12 hours Ordering Physician: Rosalba Stein DO 11/11/25 bedtime Unchanged Montelukast (Singulair 10 mg oral tablet) 1 tab(s) Oral Daily Ordering Physician: Rosalba Stein DO 11/11/25 bedtime Unchanged Nicotine (nicotine 21 mg/ 24 hr transdermal film, extended release) 21 Milligram Topically Daily Ordering Physician: Ana Salomon NP Pickup at [facility]/pharmacy #[id number] 11/12/25 AM Unchanged Oxybutynin (oxybutynin 5 mg oral tablet) 1 tab(s) Oral Twice a day Ordering Physician: Rosalba Stein DO 11/11/25 bedtime Unchanged Pantoprazole (Protonix 40 mg oral delayed release tablet) 1 tab(s) Oral Daily Ordering Physician: Rosalba Stein DO 11/12/25 AM Unchanged Pentoxifylline (pentoxifylline 400 mg oral tablet, extended release) 1 tab(s) Oral Twice a day Special Instructions: with food Ordering Physician: Rosalba Stein DO ?? 11/11/25, dinnertime Unchanged Senna (senna 187 mg oral tablet) 1 tab(s) Oral Twice a day as needed for Constipation Ordering Physician: Tash Doran MD As needed 2x/day Pharmacy Information [facility]/pharmacy #[id number]: [address], [place] [phone] ?? What How Much When Comments Stop Taking Oxycodone (oxyCODONE 5 mg oral tablet) 0.5 tab(s) Oral Every 6 hours as needed for as needed for pain Stop Taking Polyethylene Glycol 3350 (MiraLax Powder) 17 gram Oral Daily as needed for Constipation Ordering Physician: Tash Doran MD Stop Taking Zolpidem (Ambien 10 mg oral tablet) 1 tab(s) Oral Daily at Bedtime Stop Taking Zolpidem (Ambien 10 mg oral tablet) 1 tab(s) Oral Daily at Bedtime Medicamentos dados silver carrillo hospitalizaci??n Prescription Given During Visit Aripiprazole (ARIPiprazole 2 mg oral tablet) - 2 mg, By Mouth, Daily at bedtime, # 30 tablet, 0 Refills, [facility]/pharmacy #[id number], [address] [place] [address] [phone]?? Escitalopram (escitalopram 5 mg oral tablet) - 1 tablet = 5 mg, By Mouth, Daily, # 30 tablet, 0 Refills, [facility]/pharmacy #[id number], [address] [place] [address] [phone]?? HydrOXYzine (hydrOXYzine pamoate 25 mg oral capsule) - , # 120 capsule, 0 Refills, [place] 1 o 2 capsulas hasta dos veces al jostin, si lo necesita, para la ansiedad. (Sadiq 4 capsulas al jostin), [facility]/pharmacy #[id number], [address] [place] [address] [phone]?? Nicotine (nicotine 21 mg/24 hr transdermal film, extended release) - 21 mg, Topically, Daily, # 30 patch, 0 Refills, [facility][id number], [address] [place] [address] [phone]?? Resultados de los an??lisis de laboratorio Laboratory Results A continuaci??n se ofrece monse lista parcial de los an??lisis de laboratorio m??s recientes realizados silver la consulta. Es posible que le hayan realizado otras pruebas y procedimientos no incluidos en esta lista. Hable sobre todos los resultados de las pruebas con carrillo profesional m??dico. Below is a partial list of the most recent Laboratory test results done prior to this discharge. You may have had other tests and procedures not included in this list. Please discuss all test resultswith your provider. Est Creatinine Clearance - 64.29 mL/min (11/07/2025) B12 Vitamin Level (11/07/2025) ???Vitamin B12 Level - 1656 pg/mL CBC w/ Differential (11/07/2025) ???WBC - 5.5 k/mm3???RBC - 4.28 m/mm3???Hgb - 12.6 Gm/dL???Hct - 39.3 %???MCV - 91.8 femtoliters???MCH - 29.4 pg???MCHC - 32.1 Gm/dL???Platelet Count - 229 k/mm3???RDW-SD - 47.8 femtoliters???MPV - 11.2 femtoliters???Nucleated RBC (Automated) - 0.0 #/100 WBC'S???Abs. NRBC - 0.0 k/mm3???Abs. Neut - 2.3 k/mm3???Abs. Lymph - 2.5 k/mm3???Abs. [place] - 0.3 k/mm3???Abs. Eo - 0.4 k/mm3???Abs. Baso - 0.0 k/mm3???Neut % - 41.5 %???Lymph % - 44.7 %???[place] % - 6.0 %???Eos % - 6.9 %???Baso % - 0.7 %???Imm Gran - 0.2 %???Abs. Imm Gran - 0.0 k/mm3 Comprehensive Metabolic Panel (11/07/2025) ???Sodium - 144 mmol/L???Potassium - 3.9 mmol/L???Chloride - 108 mmol/L???Bicarbonate Level - 24 mmol/L???Anion Gap - 12 mmol/L???Glucose Level - 103 mg/dL???BUN - 19 mg/dL???Creatinine-Blood - 0.86 mg/dL???Estimated GFR Creatinine - 76 ML/MIN/1.73 M2???Calcium - 9.3 mg/dL???Protein, Total - 6.5 Gm/ dL???Albumin - 3.8 Gm/dL???AG Ratio - 1.4???Alkaline Phosphatase - 100 units/L???AST (SGOT) - 15 units/L???ALT (SGPT) - 18 units/L???Bilirubin, Total - 0.2 mg/dL Folate Level (11/07/2025) ???Folic Acid Level - 18.6 ng/mL Hemoglobin A1C (Monitoring) (11/07/2025) ???Hemoglobin A1C (Monitoring) - 5.5 % Lipid Panel (11/07/2025) ???Cholesterol - 114 mg/dL???Triglycerides - 113 mg/dL???HDL Cholesterol - 36 mg/dL???LDL Cholesterol - 55 mg/dL???Non HDL Cholesterol - 78 mg/dL TSH with T4 Reflex (Adults Only) (11/07/2025) ???TSH - 0.71 uIU/mL Alergias Allergies (NKA means No Known Allergies)(NKA means No Known Allergies) Mushrooms No Known Medication Allergies Problemas Problems Active Problems??(23) Anxiety?? Bloody diarrhea?? Claudication?? Coronary artery disease?? Current smoker?? Elevated LFTs?? Fibromyalgia?? Generalized anxiety disorder?? GERD without esophagitis?? H/O chest pain?? History of CVA (cerebrovascular accident)?? History of schizophrenia?? HLD (hyperlipidemia)?? HTN (hypertension)?? Hyperlipidemia?? Hypertension?? Left-sided weakness?? Migraines?? Nicotine dependence?? Obese class I?? Overactive bladder?? Seizure disorder?? Stroke-like symptoms?? Materiales educativos Education Materials A continuaci??n se incluye monse lista de los folletos educativos entregados junto con el resumen de carrillo consulta. Below is the list of Educational Leaflet Providered with your Discharge Instructions. Objetos de valor y pertenencias Valuables and Belongings Comprendo plenamente y estoy de acuerdo en que [facility] no acepta ninguna responsabilidad por mis pertenencias, ezequiel ropa, art??culos de tocador, radios, alhajas, dentaduras postizas, aud??fonos, anillos, dinero o cualquier otra pertenencia en mi posesi??n o que me trajeron despu??s de habersido admitido. I fully understand and agree that [facility] accepts no responsibility for all my personal property including clothing, toilet articles, radios, jewelry, dentures, hearing aids, rings, money, or any other property that is in my possession or is brought to me after admission. ?? Comprendo que ciertos objetos de valor se pueden nany henry en la caja de seguridad del hospital por un periodo breve. I understand certain valuables may be placed in a hospital safe for a short period of time. ?? Comprendo que el hospital no es responsable por p??rdidas o da??os debido a accidente, incendio u otro episodio natural mientras dicho objeto se encuentra en la caja de seguridad. I understand that the hospital is not liable for loss or damage due to accident, fire, or other natural occurrence while said property is in the safe. ?? Acepto responsabilidad completa por cualquier pertenencia que se quede conmigo y no responsabilizar?? al hospital en nikhil de p??rdida o desaparici??n. Reconozco que me zelaya recomendado que env??e mis objetos de valor y pertenencias a mi casa. I accept full responsibility for any personal property that I keep with me, and will not hold the hospital responsible in case of loss or disappearance. I acknowledge that i have been encouraged to send valuables and belongings home. ?? Date for Pt to Sign Valuables/Belongings: 11/06/25 10:51:00 ?? Otra informaci??n de mayra Other Discharge Information ? Pulmonary Rehab Status?? Pulmonary Rehab Discharge Status?? Respiratory Rate: 16 br/min ?? Psychiatric Discharge Plan?? Discharge Plan Psych?? Clinics?? Other Agency?? Crisis Services?? Level of Care at Discharge: Home/Family/SelfCare/RestHome/Jail/Sub AbuseTx ([facility]) Clinics: [address] [phone] Physician/PCP: Sepideh Gordillo (PCP)[address] [address] fax (please fax d/c summary) Psychiatric Crisis Services: For your area are available 24 hours every day, by calling: Discharge Plan Additional Information: Caroline will return home to [place] after d/c. Caroline has a follow up appt. with her PCP at [facility]. Caroline should utilize the walk-in hours at [facility] in [place] for outpatient providers. Clinic Contact: Outpatient Therapy & Psychiatryfax (please fax d/c summary) Instructions: Follow up PCP appointment. The PCP should make a referral to orthopedics for a MRI recommended by PT to assess left side muscle weakness due to a fall. Crisis Services: [facility] [place] [phone] Mode of Transportation: Family Clinic Comments: Caroline should utilize the walk-in hours at the clinic to secure outpatient therapy& psychiatry. The walk-in hours are Mon.-Fri. 8 am to 8 pm and Sat. & Sun. 8 am to 5 pm. Appointment Date/Time: November 13, 2025 at 9:[address] Hemal Badillo Crisis Service Instructions: Please utilize crisis when needed. Arranged Transport Date/Time: 11/11/25 12:00:00 Clinic Date/Time: TBD ? Consejos comunes de percepci??n de emergencia Common Emergency Awareness Tips ??ES UN ACCIDENTE CEREBROVASCULAR? Act??e R? PIDO (FAST) y revise los siguientes signos: IS IT A STROKE? Act FAST and Check for these signs: BELLA ??La bella se ve carlota??trica? FACE Does the face look uneven? BRAZO ??Tomas de los brazos est?? ca??do? ARM Does one arm drift down? HABLA ??El habla suena extra??a? SPEECH Does their speech sound strange? TIEMPO Llame al ante cualquier signo de accidente cerebrovascular. TIME Call at any sign of stroke ?? Se??ales de ataque card??aco/Heart Attack Signs Malestar en el pecho: En la mayor??a de los ataques cardiacos se sienten molestias en el [facility] que pérez m??s que algunos minutos, o que aparecen y desaparecen. Puede que sienta monse presi??n inc??moda, apret??n, sensaci??n de estar lleno o dolor. ?Chest discomfort: Most heart attacks involve discomfort in the center of the chest and lasts more than a few minutes, or goes away and comes back. It can feel like uncomfortable pressure, squeezing, fullness or pain. Incomodidad en parte superior del cuerpo: Los s??ntomas pueden ser dolor o malestar en tomas o ambos brazos, la espalda, el willard, la maribel??bula o el est??severino. ?Discomfort in upper body: Symptoms can include pain or discomfort in one or both arms, back, neck, jaw or stomach. Falta de aliento: Con o sin molestias. ?Shortness of breath: With or without discomfort. Otros signos: Sudoraci??n fr??a, n??useas o mareos. ?Other signs: Breaking out in a cold sweat, nausea, or lightheaded. Recuerde,LOS MINUTOS SON IMPORTANTES.. Si sufre alguno de estos signos de advertencia de un infarto, llame al para obtener atenci??n m??dica de inmediato! ?Remember, MINUTES DO MATTER. If you experience any of these heart attack warning signs, call to get immediate medical attention! ?? Fumar puede aumentar joslyn probabilidades de desarrollar problemas de mario cr??nicos y puede causar efectos nocivos para otros miembros de la kenan en carrillo hogar. Si fuma, lo instamos enf??ticamente aque deje de fumar. Llame a [employer] al [phone] o sin costo al 8-616-531Winster ([phone]) o inicie sesi??n en www.[employer].org para recomendaciones de programas para dejar de fumar. Smoking can increase your chances of developing chronic health problems and can cause harmful effects to other family members in your house. If you smoke, you are strongly encouraged to quit. Please call [employer] at [phone] or 1-471-536[place]ster (1941) or log in to www.[facility].org for referrals to smoking cessation programs. ?? La L??angelse de Ayuda Nacional para la Prevenci??n del Suicidio (National Suicide Prevention Hotline) est?? disponible las 24 horas del d??a, los 7 d??as de la semana si usted o alguien que usted conozca necesitan encontrar un motivo para seguir viviendo. Al llamar al 5-699-704-lxcp ([phone]) se le contactar?? con un consejero capacitado y con experiencia en un centro de crisis en carrillo ??abbie. The National Suicide Prevention Hotline is available 19/06 if you or someone you know needs to find a reason to keep living. By calling 5-438-055-abcc (7799) you'll be connected to a skilled, trained counselor at a crisis center in your area. INSTRUCCIONES DE MAYRA PARA PACIENTES HOSPITALIZADOS - P? GOPI DE FIRMA Inpatient Discharge Instructions signature Page CAROLINE REGALADO Location:[facility] Inpatient Psychiatry Registration Date and Time:11/06/2025 10:43 EST Primary Care Physician: Not on Staff, PCP Attending Physician: Roslyn PAIGE, Juan Alberto Key, Yo CAROLINE REGALADO, he recibido los materiales de educaci??n del paciente/instrucciones anteriores y he expresado verbalmente que las comprendo. Si se utilizan servicios de ambulancia o transporte reconozco tambi??n que se me licha la opci??n de elegir el servicio. I CAROLINE REGALADO, have received the above patient education materials/instructions and have verbalized understanding. If ambulance or transport services are being used I further acknowledge being given a choice of service. ?? Si necesita comunicarse conmigo, ll??heladio a de n??andrew: . If you need to contact me, please call me at this number Nombre del paciente/representante: Patient/Overlock Elastic Attacher Name Firma del paciente/representante: Patient/Overlock Elastic Attacher Signature Relaci??n con el paciente: Relationship to Patient Nombre/luis a el testigo: Witness Name/Signature Fecha: Date * Rich Smith: PERFORM Event Display: Discharge/Transfer Note Hospital Authored Date: [id number] Psychiatric Discharge Plan Entered On: 11/10/2025 11:22 EST Performed On: 11/10/2025 11:14 EST by Rich Smith Discharge Plan Mode of Transportation : Family Arranged Transport Date/Time : 11/11/2025 12:00 EST Rich Smith - 11/11/2025 9:52 EST Level of Care at Discharge : Home/Family/SelfCare/RestHome/Jail/Sub AbuseTx ([facility]) Rich Smith - 11/10/2025 11:14 EST Discharge Plan Additional Information : Caroline will return home to [place] after d/c. Caroline has afollow up appt. with her PCP at [facility]. Caroline should utilize the walk-in hours at [facility] in [place] for outpatient providers. Rich Smith - 11/11/2025 7:00 EST Clinics Clinics : [address] [phone] Clinic Contact : Outpatient Therapy & Psychiatry fax (please fax d/c summary) Clinic Comments : Caroline should utilize the walk-in hours at the clinic to secure outpatient therapy & psychiatry. The walk-in hours are Mon.-Fri. 8 am to 8 pm and Sat. & Sun. 8 am to 5 pm. Clinic Date/Time : Rich Tran - 11/10/2025 14:46 EST Other Appointment Date/Time : November 13, 2025 at 9:45 am with Rich Kerr 11/10/2025 15:03 EST Physician/PCP : Sepideh Gordillo (PCP) [address] [phone] fax (please fax d/c summary) Rich Smith 11/11/2025 7:00 EST Instructions : Follow up PCP appointment. The PCP should make a referral to orthopedics for a MRI recommended by PT to assess left side muscle weakness due to a fall. Rich Smith 11/11/2025 9:52 EST Crisis Services Psychiatric Crisis Services : For your area are available 24 hours every day, by calling: Crisis Services : [facility] [place] [phone] Crisis Service Instructions : Please utilize crisis when needed. Rich Smith - 11/10/2025 11:14 EST Electronically Signed on 11/11/25 10:00 AM Rich Smith Patient Care team information Care Team Personnel Name: Fernando Bridges RN Position: S RN Member Role: Primary Care Nurse Name: Ellen Christian RN Position: S RN Member Role: Primary Care Nurse Name: Khadar Lund RN Position: S RN Member Role: Primary Care Nurse Name: Trinh Macias RN Position: S RN Member Role: Primary Care Nurse Name: Lebron Barton RN Position: [facility] RN Member Role: Primary Care Nurse Name: Oleg Hernandez RN Position: [facility] RN Member Role: Primary Care Nurse Name: Lilia Eric RN Position: [facility] RN Member Role: Primary Care Nurse Name: Mindi Montanez RN Position: [facility] RN Member Role: Primary Care Nurse Name: Nhung Enamorado RN Position: [facility] RN Member Role: Primary Care Nurse Name: Natalie Schmitt RN Position: [facility] RN Member Role: Primary Care Nurse Name: Not on Staff, PCP Position: [facility] Physician (General Medicine) Member Role: PCP Name: Ann Jimenez RN Position: [facility] RN Member Role: Primary Care Nurse Name: Farrah Arroyo RN Position: [facility] RN Member Role: Primary Care Nurse Name: Patricia Persaud RN Position: [facility] RN Member Role: Primary Care Nurse Name: Daren Cano RN Position: [facility] RN Member Role: Primary Care Nurse Care Team Related Persons Name: CHIQUITA CARRASCO Name: TORI SCHREIBER Insurance Providers Guarantor name: ROSALES Health Plan Information #: 1 [facility] Payer Identifier: ROSALES Member Number: [id number] Group Number: Subscriber Identifier: [id number] Relationship to Subscriber: self Coverage Type: Medicaid (Managed Care) Coverage Verification Date: ROSALES Telecom: ROSALES Address:
--- NOTE | 2025-11-13 09:54 | A.OFFPC_ITS ---
Vital Signs 11/13/25 09:56 Height 5 ft 4 in Weight 178 lb 6 oz BMI 30.6 BP 120/80 Blood Pressure Location Lt brachial Position Sitting Pulse 83 Pulse Source Pulse Oximeter Temp 97.1 F Temp Source Temporal Artery Scan Pulse Oximetry (%) 98 Oxygen Delivery Method Room Air Intake Visit Reasons: Follow up Intake Note: Patient is here today for re-establish of care. Construction Field Engineer Required: Yes Construction Field Engineer Language: Supervisor Silvering Department Name: Tori (daughter) Information Interpreted: non-clinical & clinical (pt decline chief of internal medicine service prefer daughter to translate) Inspector Circuitry Negative: Present Accompanied by: Daughter Allergies No Known Allergies (No Known Allergies*) Allergy (Verified 11/13/25 10:26) Medication List - Last Reconciled 11/13/25 by Hemal Badillo MD albuterol sulfate 90 mcg/actuation 1 inh inhalation Q4H PRN albuterol sulfate 2.5 mg (3 mL) inhalation Q4-6H PRN amitriptyline 10 mg PO BEDTIME 30 days amlodipine 2.5 mg PO DAILY aripiprazole 2 mg PO DAILY aspirin 81 mg PO DAILY atorvastatin 40 mg PO DAILY mujjrroogo-mzwvtjinhjyrq-sxim 50-325-40 mg 1 cap PO Q4-6H PRN cane As directed cholecalciferol (vitamin D3) 125 mcg PO DAILY clonazepam 1 mg PO BEDTIME diclofenac sodium 1% (Arthritis Pain (diclofenac)) 4 grams topical QID diltiazem HCl 30 mg PO BID divalproex (Depakote) 250 mg PO BID docusate sodium (Colace) 100 mg PO BID duloxetine 60 mg PO DAILY escitalopram oxalate 5 mg PO DAILY famotidine (Pepcid) 40 mg PO BEDTIME fluticasone propionate 110 mcg/actuation (Flovent HFA) 1 puff inhalation BID gabapentin 300 mg PO DAILY gabapentin 800 mg PO BEDTIME 90 days hydroxyzine pamoate 50 mg PO QID levetiracetam 500 mg PO Q12H miscellaneous medical supply (Blood Pressure Cuff) As directed, electronic bp cuff, take bp twice a day miscellaneous medical supply 1 ea miscellaneous DAILY montelukast 10 mg PO BEDTIME PRN nebulizers As directed 1 inhalation bid prn bronchospasms nebulizers (Altera Nebulizer System) As directed, 1 inhalation bid nicotine 1 patch transdermal DAILY oxybutynin chloride 5 mg PO BID pantoprazole 40 mg PO DAILY pentoxifylline ER 400 mg PO BID sennosides (Senokot) 8.6 mg PO BID PRN walker As directed Tobacco use date assessed: 11/13/25 Dental Screening Dental Screen Date: 11/13/25 Did you have a dental visit in the last 12 months?: No Did you have a dental problem in the last 6 months where you did not have access to dental care?: No Was dental information given to patient?: No HPI Follow up HPI Details Patient comes in today to reestablish care She was last seen here over 2 years ago in March 2023 - has been seen by some of our midlevel practitioners the few times she was here ever since she started with our practice in 2021 when she moved here from [place] Relates that she moved back to [place] in 2022 and just came back here to the [facility] about a month ago States that while she was in [place] last year, she experienced three strokes in May, June, and August, and two heart attacks The strokes reportedly affected her left side, and the cause was attributed to high cholesterol and blood pressure. A loop recorder was implanted to monitor her heart rhythm, but a recommended c ardiac catheterization was not performed as [place] the [place] She has a history of mental health issues, including anxiety, and was recently hospitalized twice at [facility] and the latest one at a psychiatric unit up at [facility] last week on 11/06/2025 for increased anxiety and 'mental health issues' She also has a history of rheumatoid arthritis and osteoarthritis but is not on any current treatment Other medical history includes hypertension, hyperlipidemia, gastroesophageal reflux disease, and a history of elevated blood sugars and will need referrals to the respective specialties - cardiology, neurology, rheumatology and psychiatry She reports (+) insomnia since her Ambien was discontinued during her recent psychiatric hospitalization. She is currently receiving home physical therapy, occupational therapy, and nursing services Adds that she needs several of her Rx refilled as well as a Rx for a nebulizer unit [facility] Medical History (Updated 11/16/25 @ 17:34 by Hemal Badillo MD) Obesity (BMI 30-39.9) Osteoarthritis Essential hypertension Pure hypercholesterolemia Coronary artery disease Cerebrovascular accident (CVA) History of myocardial infarction Post traumatic stress disorder (PTSD) Trochanteric bursitis of both hips Osteoarthritis of both hands Smoker Bipolar 1 disorder Allergic rhinitis GERD (gastroesophageal reflux disease) Fibromyalgia Asthma Generalized anxiety disorder Hypercholesteremia Hypertension Surgical History (Updated 11/13/25 @ 10:17 by TANIYA Claros) History of cholecystectomy History of tubal ligation History of back surgery History of appendectomy Family History Mother Depression Hypertension Bone cancer Anxiety Mental health disorder Father Diabetes Son Pancreatic cancer Sister Liver cancer Social History (Updated 11/13/25 @ 10:18 by TANIYA Claros) Housing: Apartment Alcohol intake: current Alcohol intake frequency: holidays/special occasions only Patient Tobacco Use Status: Current everyday Tobacco user Tobacco use type: Cigarette Cigarette Packs Per Day: 0.5 Cigarettes Per Day: 2 e-Cigarette/Vaping Use: Never Used Second Hand Smoke Exposure: Yes service: No Current occupational status: disabled Sexual orientation: Straight/Heterosexual Gender identity: Female Cognitive needs: Yes (walker) Hearing needs: No Vision needs: Yes (Glasses) Questionnaire PHQ-9 Over the last 2 weeks, how often have you been bothered by any of the following problems? 1. Little interest or pleasure in doing things: not at all 2. Feeling down, depressed, or hopeless: not at all 3. Trouble falling or staying asleep, or sleeping too much: not at all 4. Feeling tired or having little energy: not at all 5. Poor appetite or overeating: not at all 6. Feeling bad about yourself - or that you are a failure or have let yourself or your family down: not at all 7. Trouble concentrating on things, such as reading the newspaper or watching television: not at all 8. Moving or speaking so slowly that other people could have noticed. Or the opposite - being so fidgety or restless that you have been moving around a lot more than usual: not at all 9. Thoughts that you would be better off or of hurting yourself in some way: not at all Total score: 0 Depression Screening Interpretation: Negative Depression Screening Done: Yes 68899 - PHQ-9 Billing: Yes Source: Developed by Drs. Garry Calderon, Rachel Hdz, Rolando Rey and colleagues, with an educational humble from [employer]. Thrive Questionnaire Date Thrive assessed: 10/30/25 I am a: Patient What is your living situation today?: I have a place to live, but I am worried about losing it in the future Within the past 12 months, did the food you bought not last and you didn't have the money to get more?: Often true Within the past 12 months, did you worry whether your food would run out before you got money to buy more?: Often true Do you have trouble paying for medicines?: Yes Do you have trouble getting transportation to medical appointments?: Yes Do you have trouble paying your heating and electricity bill?: I choose not to answer this question Do you have trouble taking care of your child, family member or friend?: No Do you have trouble with day-to-day activities such as bathing, preparing meals, shopping, managing finances, etc.?: Yes Are you currently unemployed and looking for a job?: I choose not to answer this question Are you interested in more education?: No Currently or been in a relationship where the following occur: I choose not to answer THRIVE Score: 4 AUDIT C Alcohol Use Questionnaire (AUDIT-C) 1. How often do you have a drink containing alcohol?: Monthly or less 2. How many drinks containing alcohol do you have on a typical day when you are drinking?: 1 or 2 Total Score: 1 Score Reviewed/Action Taken: Yes MERRITT-7 AMB Questionnaire MERRITT-7 Date MERRITT - 7 assessed: 11/13/25 Feeling nervous, anxious, or on edge: 0 = Not at all Not being able to stop or control worryin = Not at all Worrying too much about different things: 0 = Not at all Trouble relaxin = Not at all Being so restless that it is hard to sit still: 0 = Not at all Becoming easily annoyed or irritable: 0 = Not at all Feeling afraid as if something awful might happen: 0 = Not at all Total MERRITT-7 score (0-4 normal; 5-9 mild; 10-14 moderate; 15-21 severe): 0 Source: Developed by Drs. Garry Calderon, Rachel Hdz, Rolando Rey and colleagues, with an educational humble from [employer]. Review of Systems Const Denies chills, Reports fatigue, Denies fever(s), Denies headache(s) and Reports weakness (on the left side) ENT Denies dysphagia, Denies dizziness, Denies otalgia, Denies headache(s), Denies neck pain, Denies odynophagia and Denies sore throat Card Denies chest pain, Denies palpitations and Denies dyspnea Resp Denies cough and Denies dyspnea GI Denies abdominal pain, Denies constipation, Denies dysphagia, Denies heartburn, Denies diarrhea, Denies nausea, Denies odynophagia and Denies vomiting Denies difficulty voiding, Denies nocturia and Denies dysuria Musc Denies back pain and Denies neck pain Skin/Breast Denies rash Neuro Details: (+) left hemiplegia Reports Abnormal speech present, Denies dizziness, Denies headache(s) and Reports weakness (on the left side) Psych Reports anxiety and Reports depression Endo Reports fatigue and Denies palpitations Physical exam (Primary Care) Vital Signs: Last Vital Signs Temp 97.1 F 11/13/25 09:56 Pulse 83 11/13/25 09:56 BP 120/80 11/13/25 09:56 Pulse Ox 98 11/13/25 09:56 Oxygen Delivery Method Room Air 11/13/25 09:56 BMI result Body Mass Index 30.6 Tobacco/Smoking Status: Tobacco use Status Tobacco use date assessed 11/13/25 11/13/25 10:05 Patient Tobacco Use Status Current everyday Tobacco 11/13/25 10:18 Tobacco use type Cigarette 11/13/25 10:18 e-Cigarette/Vaping Use Never Used 11/13/25 10:18 PHQ-9: PHQ-9 Score PHQ-9: Total score 0 11/13/25 10:27 Depression Screening Interpretation: Negative Thrive Assessment: Date of Thrive Assessment Date Thrive assessed 10/30/25 11/13/25 10:05 Currently or been in a relationship where the following occur: I choose not to answer Const General: no acute distress and alert Orientation/consciousness: patient oriented x3 HENMT Ears: TM's normal bilaterally and EAC's normal Throat: Yes posterior oropharynx normal and Yes tonsils normal (no TP congestion) Neck Neck: Yes supple and No lymphadenopathy Thyroid: Thyroid normal Resp Auscultation: clear to auscultation bilaterally, no rales and no wheezes Cardio Rate: regular rate Rhythm: regular rhythm Heart sounds: no murmurs GI Palpation (GI): Soft to palpation and nontender Auscultation: normal bowel sounds General: Yes no CVA tenderness Back/Spine/Pelvis Back: no CVA tenderness Thoracic/Lumbar Spine: No lumbar spinal tenderness Skin Rashes: no rashes Neuro Other: (+) left hemiplegia General: patient oriented x3 Speech: Abnormal speech present slurred (due to hemiplegia) Extrem General: Yes no clubbing, cyanosis or edema Coding Level of Care Code New Pt Level 5 (06198) Diagnoses Cerebrovascular accident (CVA), unspecified mechanism I63.9 CVA mechanism: unspecified Left hemiplegia G81.94 Coronary artery disease involving [place] coronary artery of [place] heart without angina pectoris I25.10 Coronary Disease-Associated Artery/Lesion type: [place] artery [place] vs. transplanted heart: [place] heart Associated angina: without angina Pure hypercholesterolemia E78.00 Essential hypertension I10 Gastroesophageal reflux disease without esophagitis K21.9 Esophagitis presence: without esophagitis Moderate persistent asthma without complication J45.40 Asthma severity: moderate Asthma persistence: persistent Asthma complication type: uncomplicated Migraine without status migrainosus, not intractable, unspecified migraine type G43.909 Migraine type: unspecified Status migrainosus presence: without status migrainosus Intractability: not intractable History of rheumatoid arthritis Z87.39 Primary osteoarthritis, unspecified site M19.91 Osteoarthritis location: unspecified site Osteoarthritis type: primary Generalized anxiety disorder F41.1 Bipolar 1 disorder F31.9 Smoker F17.200 Obesity (BMI 30-39.9) E66.9 Additional Codes PHQ-9 - 81450 - PHQ-9 Billing: Yes ([id number]) Time Spent (min) 45 Assessment & Plan Assessment & Plan (1) Cerebrovascular accident (CVA): Code(s): I63.9 - Cerebral infarction, unspecified Category: Medical Qualifiers: CVA mechanism: unspecified Qualified Code(s): I63.9 - Cerebral infarction, unspecified Plan: Patient reportedly suffered 3 separate episodes of CVA while she was still in [place] this past year - in May, June, and August of 2025 States that the strokes reportedly left her with paralysis and weakness on her left side, and that the cause of her CVA was attributed to high cholesterol and high blood pressure A loop recorder was implanted to monitor her heart rhythm, but a recommended cardiac catheterization was not performed as [place] Continue Pentoxifylline ER 400 mg BID Will refer her to neurology for further evaluation and management She is also currently on Keppra 500 mg Q 12 hours but unclear at this time what this is being prescribed exactly for (2) Left hemiplegia: Code(s): G81.94 - Hemiplegia, unspecified affecting left nondominant side Category: Medical Plan: This is most likely related to her recurrent CVA(s) over the past year She is currently receiving home physical therapy through [facility] for this issue (3) Coronary artery disease: Code(s): I25.10 - Atherosclerotic heart disease of [place] coronary artery without angina pectoris Category: Medical Qualifiers: Coronary Disease-Associated Artery/Lesion type: [place] artery [place] vs. transplanted heart: [place] heart Associated angina: without angina Qualified Code(s): I25.10 - Atherosclerotic heart disease of [place] coronary artery without angina pectoris Plan: Patient also reportedly had 2 separate AZ's while she was in [place] over the past year She was supposedly being scheduled for coronary angiography but this did not occur as she ended up moving back here to the [place] Continue Aspirin 81 mg QD Will refer her to cardiology for further evaluation and management (4) Pure hypercholesterolemia: Code(s): E78.00 - Pure hypercholesterolemia, unspecified Category: Medical Plan: Reinforced low cholesterol diet Continue Atorvastatin 40 mg QD Will send patient to get her labs, especially her cholesterol levels, updated [facility] (5) Essential hypertension: Code(s): I10 - Essential (primary) hypertension Category: Medical Plan: Reinforced low sodium diet - goal is systolic BP of at least 130 mm or less Continue Amlodipine 2.5 mg QD and Diltiazem 30 mg BID Patient is reminded to monitor her blood pressure regularly (6) GERD (gastroesophageal reflux disease): Code(s): K21.9 - Gastro-esophageal reflux disease without esophagitis Category: Medical Qualifiers: Esophagitis presence: without esophagitis Qualified Code(s): K21.9 - Gastro-esophageal reflux disease without esophagitis Plan: Dietary restrictions reinforced Continue Pantoprazole 40 mg QD and Famotidine 40 mg Q HS (7) Asthma: Code(s): J45.909 - Unspecified asthma, uncomplicated Category: Medical Qualifiers: Asthma severity: moderate Asthma persistence: persistent Asthma complication type: uncomplicated Qualified Code(s): J45.40 - Moderate persistent asthma, uncomplicated Plan: Continue Flovent HFA 110 mcg 1 to 2 inhalations BID and Albuterol HFA 1 to 2 inhalations Q 6 hours PRN Per request, Rx for nebulizer made out and printed (8) Migraines: Code(s): G43.909 - Migraine, unspecified, not intractable, without status migrainosus Category: Medical Qualifiers: Migraine type: unspecified Status migrainosus presence: without status migrainosus Intractability: not intractable Qualified Code(s): G43.909 - Migraine, unspecified, not intractable, without status migrainosus Plan: Reinforced avoidance of all potential migraine triggers Continue Amitriptyline 10 mg Q HS, Depakote 250 mg BID and Fioricet PRN (9) History of rheumatoid arthritis: Code(s): Z87.39 - Personal history of other diseases of the musculoskeletal system and connective tissue Category: Medical Plan: Per request, will refer her to rheumatology for further evaluation and management (10) Osteoarthritis: Code(s): M19.90 - Unspecified osteoarthritis, unspecified site Category: Medical Qualifiers: Osteoarthritis location: unspecified site Osteoarthritis type: primary Qualified Code(s): M19.91 - Primary osteoarthritis, unspecified site Plan: Involving multiple joints Per request, will refer her to rheumatology for further evaluation and management (11) Generalized anxiety disorder: Code(s): F41.1 - Generalized anxiety disorder Category: Medical Plan: Continue Clonazepam 1 mg Q HS, Hydroxyzine 50 mg QID PRN and Escitalopram 5 mg QD Follow up with psychiatry as scheduled (12) Bipolar 1 disorder: Code(s): F31.9 - Bipolar disorder, unspecified Category: Medical Plan: Continue Aripiprazole 2 mg Q HS, Duloxetine 60 mg QD and Escitalopram 5 mg QD Follow up with psychiatry as scheduled (13) Smoker: Code(s): F17.200 - Nicotine dependence, unspecified, uncomplicated Category: Social Hx Plan: Patient is counseled on complete smoking cessation, especially in light of her recent CVAs and MIs Will start her on Nicotine patches QD to help her quit smoking (14) Obesity (BMI 30-39.9): Code(s): E66.9 - Obesity, unspecified Category: Medical Plan: Reinforced diet; exercise and weight loss are not realistic given patient's hemiplegia and multiple comorbidities Plan Follow up in 3 months Orders: Orders Complete Blood Count Auto Diff 11/13/25 D64.9 - Anemia, unspecified Comprehensive [place]. Panel Fast 11/13/25 E78.00 - Pure hypercholesterolemia, unspecified Lipid Panel 11/13/25 E78.00 - Pure hypercholesterolemia, unspecified Vitamin B12 and Folate 11/13/25 E53.8 - Deficiency of other specified B group vitamins JOSÉ MIGUEL Reflex Titer and Pattern 11/13/25 M25.50 - Pain in unspecified joint Erythrocyte Sedimentation Rate 11/13/25 M25.50 - Pain in unspecified joint Rheumatoid Factor 11/13/25 M25.50 - Pain in unspecified joint Cyclic Citrullinated Peptide 11/13/25 M25.50 - Pain in unspecified joint TSH reflex Free T4 11/13/25 E78.00 - Pure hypercholesterolemia, unspecified UA CC w/rflx Micro + Cult 11/13/25 R30.0 - Dysuria Vitamin D 25-OH Total 11/13/25 E55.9 - Vitamin D deficiency, unspecified Hemoglobin A1c 11/13/25 E11.9 - Type 2 diabetes mellitus without complications C Reactive Protein 11/13/25 M25.50 - Pain in unspecified joint Referrals Psychiatry Referral F31.9 - Bipolar disorder, unspecified, F41.1 - Generalized anxiety disorder, F43.10 - Post-traumatic stress disorder, unspecified Cardiology Referral I25.2 - Old myocardial infarction, I63.9 - Cerebral infarction, unspecified Neurology Referral I63.9 - Cerebral infarction, unspecified Rheumatology Referral M19.041 - Primary osteoarthritis, right hand, M19.042 - Primary osteoarthritis, left hand, M25.50 - Pain in unspecified joint Medications: New nicotine 1 patch transdermal Q24H 28 ea 5RF 28 days F17.200 - Nicotine dependence, unspecified, uncomplicated lidocaine 5% leave on most painful area for up to 12 hrs 1 patch topical DAILY 30 ea 3RF Changed From amlodipine 2.5 mg PO DAILY I10 - Essential (primary) hypertension To amlodipine 2.5 mg PO DAILY 90 tabs 1RF 90 days I10 - Essential (primary) hypertension From pantoprazole 40 mg PO DAILY 30 tabs 3RF To pantoprazole 40 mg PO DAILY 90 tabs 1RF 90 days From hydroxyzine pamoate 50 mg PO QID F41.1 - Generalized anxiety disorder To hydroxyzine pamoate 50 mg PO QID 120 caps 0RF 30 days F41.1 - Generalized anxiety disorder From nicotine 1 patch transdermal DAILY 28 ea 0RF F17.210 - Nicotine dependence, cigarettes, uncomplicated To nicotine 1 patch transdermal DAILY 7 ea 0RF 7 days F17.210 - Nicotine dependence, cigarettes, uncomplicated Refilled nebulizers (TinyTapa Nebulizer System) As directed, 1 inhalation bid 1 ea 0RF J45.909 - Unspecified asthma, uncomplicated, J98.01 - Acute bronchospasm
[2025-11-13 09:56] VITALS: BP 120/80; PULSE 83; TEMP 36.2; O2SAT 98; BMI 30.6
--- OUTSIDE RECORDS SUMMARY | 2025-11-13 11:55 | XMS_ITS | Clinical Summary ---
Author Organization [facility] ity Address [address] [place] [address] Care Team Providers Care Chancery Clerk Name Role Phone Charisse Grimm MD Primary Care Provider [phone] Social History Tobacco Use Types Packs/Day Years Used Date Smoking Tobacco: Never Assessed Comments Unknown Sex and Gender Information Value Date Recorded Sex Assigned at Not on file Legal Sex Female 4:50 AM EST Gender Identity Not on file Sexual Orientation Not on file Plan of Treatment Health Maintenance Due Date Last Done Comments Breast Cancer Screening 1970 Colorectal Cancer Screening: Colonoscopy 1970 DTaP,Tdap,and Td Vaccines (1 - Tdap) 1989 Hepatitis B Vaccines (1 of 3 - 19+ 3-dose series) 1989 Cervical Cancer Screening: P ap Smear 1991 Pneumococcal Vaccine: 50+ Ye ars (1 of 1 - PCV) 2020 Zoster Vaccines (1 of 2) 2020 HIV Screening 10/30/2022 Hepatitis C Screening 10/30/2022 Social Influencers of Health Screening 10/30/2022 Depression Screening 11/27/2024 COVID-19 Vaccine (1 - 2024-2 6 season) 2025 Influenza Vaccine (#1) 2025 RSV Immunization Adult Patie nts (1 - 1-dose 75+ series) 2045 HIB Vaccines Aged Out No longer eligi ble based on patient's age to complete this topic HPV Vaccines Aged Out No longer eligi ble based on patient's age to complete this topic Hepatitis A Vaccines Aged Out No long er eligible based on patient's age to complete this topic IPV Vaccines Aged Out No longer eligi ble based on patient's age to complete this topic MMR Vaccines Aged Out No longer eligi ble based on patient's age to complete this topic Meningococcal ACWY Vaccine Aged Out N o longer eligible based on patient's age to complete this topic Meningococcal B Vaccine Aged Out No l onger eligible based on patient's age to complete this topic RSV Immunization Patients Un justen 20 months Aged Out No longer eligible b ased on patient's age to complete this topic Varicella Vaccines Aged Out No longer eligible based on patient's age to complete this topic Care Teams Chancery Clerk Relationship Specialty Start Date End Date Charisse Grimm MD [address] [place] [address] , [address] [facility] D[facility]A: [facility] CULLEN Grover PCP - General Internal Medicine 12/11/17
== END 2025-11-13 11:03 | disposition home or self-care (01) ==
LOC: HO.HMCH 09:49
PROVIDERS: Visit Provider Internal Medicine
DX: I63.9 Cerebral infarction, unspecified (principal); G81.94 Hemiplegia, unspecified affecting left nondominant side; I25.10 Atherosclerotic heart disease of native coronary artery without angina pectoris; E78.00 Pure hypercholesterolemia, unspecified; I10 Essential (primary) hypertension; K21.9 Gastro-esophageal reflux disease without esophagitis; J45.40 Moderate persistent asthma, uncomplicated; G43.909 Migraine, unspecified, not intractable, without status migrainosus; Z87.39 Personal history of other diseases of the musculoskeletal system and connective tissue; M19.91 Primary osteoarthritis, unspecified site; F41.1 Generalized anxiety disorder; F31.9 Bipolar disorder, unspecified; F17.200 Nicotine dependence, unspecified, uncomplicated; E66.9 Obesity, unspecified

== ENCOUNTER → 2025-11-13 09:49 | Outpatient (BNVA) | payer OTHER, SELFPAY | PROVIDERS: Visit Provider Internal Medicine | DX: I10 Essential (primary) hypertension (principal); E78.5 Hyperlipidemia, unspecified; G21.9 Secondary parkinsonism, unspecified; I25.10 Atherosclerotic heart disease of native coronary artery without angina pectoris; E78.00 Pure hypercholesterolemia, unspecified; K21.9 Gastro-esophageal reflux disease without esophagitis; J45.40 Moderate persistent asthma, uncomplicated; G43.909 Migraine, unspecified, not intractable, without status migrainosus; M19.91 Primary osteoarthritis, unspecified site; F41.1 Generalized anxiety disorder; F31.9 Bipolar disorder, unspecified; F17.210 Nicotine dependence, cigarettes, uncomplicated; E66.9 Obesity, unspecified; Z87.39 Personal history of other diseases of the musculoskeletal system and connective tissue; Z86.73 Personal history of transient ischemic attack (TIA), and cerebral infarction without residual deficits; Z68.30 Body mass index [BMI] 30.0-30.9, adult | CPT/HCPCS: 96127; 99202 ==